=== PATIENT | female | born 1990 | race Caucasian/White ===

== ENCOUNTER 2022-05-12 13:07 | Emergency (ER) | payer OTHER, SELFPAY | END 2022-05-12 14:22 | disposition left against medical advice (07) | DX: Z53.21 Procedure and treatment not carried out due to patient leaving prior to being seen by health care provider (principal) ==

== ENCOUNTER 2022-09-04 10:13 | Emergency (ER) | payer OTHER, SELFPAY ==
[2022-09-04] VITALS (13 sets, daily range): BP systolic 173–196; BP diastolic 108–133; PULSE 88–108; RESP 24; TEMP 36.8; O2SAT 98–100; BMI 25.6
--- NOTE | 2022-09-04 10:49 | ED.GENADULT ---
HPI - General Adult General Chief complaint: Abdominal Pain Stated complaint: acid reflex - unable to eat/drink Time Seen by Provider: 09/04/22 10:41 History of Present Illness HPI narrative: This 32-year-old female comes in reporting upper epigastric abdominal pain with reflux up into her chest. She states that she had a gastric bypass 3 years ago and has had some issues with constipation and reflux. Over the past 3 or 4 days these symptoms have been much worse. She states that she has an appointment for an endoscopy in more than a month from now but feels that she cannot continue this way. She has been able to take some sips of fluid but has not taken any food over these past few days. She has taken all of her regular medicines to treat these symptoms and has not had relief. Related Data Home Medications Medication Instructions Recorded Confirmed dextroamphetamine-amphetamine 20 20 mg PO DAILY 04/14/22 09/04/22 mg tablet sertraline 100 mg tablet 100 mg PO Q24H 04/14/22 09/04/22 trazodone 100 mg tablet 100 mg PO HS 04/14/22 09/04/22 calcium carbonate 500 mg-vitamin 1 tab PO BID 09/04/22 09/04/22 D3 5 mcg (200 unit) tablet (Oyster Shell Calcium-Vitamin D3) gabapentin 100 mg capsule 100 mg PO DAILY 09/04/22 09/04/22 pantoprazole 40 mg tablet,delayed 40 mg PO BID 09/04/22 09/04/22 release sucralfate 100 mg/mL oral 10 ml PO TID 09/04/22 09/04/22 suspension (Carafate) Previous Rx's Medication Instructions Recorded hydrocodone 5 mg-acetaminophen 325 1 tab PO Q4-6H PRN pain #10 tabs 09/04/22 mg tablet ondansetron HCl 4 mg tablet 4 mg PO Q6H #10 tabs 09/04/22 Allergies Allergy/AdvReac Type Severity Reaction Status Date / Time amoxicillin Allergy Intermediate Hives Verified 09/04/22 10:26 metoclopramide [From Reglan] Allergy Mild anxiety, Verified 09/04/22 10:26 skin is crawling Penicillins Allergy Mild Hives Verified 09/04/22 10:26 prochlorperazine Allergy Mild anxiety, Verified 09/04/22 10:26 [From Compazine] skin crawling Review of Systems Status of ROS: Reports: 10 or more systems reviewed and unremarkable except as noted in History and below Narrative: Constitutional: No fevers, no weight gain or loss. Eyes: No discharge. No vision changes. HENT: No congestion, no sore throat, no ear pain. Cardiovascular: No palpitations. Respiratory: No shortness of breath, no wheezes, no cough. Gastrointestinal: No diarrhea. Upper epigastric abdominal pain radiating up into her chest typical of reflux esophagitis. Genitourinary: No dysuria, no hematuria. Musculoskeletal: Normal range of motion. Skin: No rashes, no pruritis. Neurological: No dizziness, weakness, sensory change, speech change. Endo/Heme/Allergies: No bruising or bleeding. No polydipsia. Pysch: no suicidality, no anxiety, no insomnia. All other systems reviewed and are negative. PFSH PFS Social History Smoking Status: Current every day smoker What tobacco products do you use: cigarettes Second hand tobacco smoke exposure: No How often do you have a drink containing alcohol: never How often do you have six or more drinks on one occasion: Never AUDIT-C Alcohol total score: 0 Non-prescribed substance use: denies use service: No Exam Narrative: Exam Narrative: Constitutional: Well-developed, well-nourished, no acute distress. HEENT: Normocephalic, atraumatic. Neck: Normal range of motion. Nontender. Supple. Heart: Regular. No murmurs. Normal rate. Intact distal pulses. Lungs: Clear to auscultation. No chest discomfort. No wheezes, rhonchi, or rales. Abdomen: Normal bowel sounds. Upper epigastric tenderness radiating up into her chest. No rebound tenderness. Genitalia: Deferred. Back: No midline tenderness. Normal range of motion. Extremities: Normal range of motion. No injury. Skin: Intact. No rash. Warm. No erythema or pallor. Neurologic: No altered sensation. No weakness. Alert and oriented. Psychiatric: No suicidality. No anxiety or depression. No insomnia. Nursing notes and vitals signs are reviewed. Const: Vital Signs, click to edit/add: Vital Signs - 24 hr 09/04/22 10:17 09/04/22 11:50 09/04/22 11:51 Temperature 98.3 F Pulse Rate 95 96 Pulse Rate [Right Pulse Oximeter] 108 H Respiratory Rate 24 Blood Pressure 174/120 H Blood Pressure [Ri ght Upper Arm] 173/108 H Pulse Oximetry 99 100 100 Oxygen Delivery Me thod Room Air Course Vital Signs Vital signs: Initial Vital Signs Temperature 98.3 F 09/04/22 10:17 Temperature Source Temporal Artery Scan 09/04/22 10:17 Pulse Rate 108 H 09/04/22 10:17 Respiratory Rate 24 09/04/22 10:17 Blood Pressure 173/108 H 09/04/22 10:17 Blood Pressure Mean 129 09/04/22 10:17 Blood Pressure Position Sitting 09/04/22 10:17 Pulse Oximetry 99 09/04/22 10:17 Oxygen Delivery Method Room Air 09/04/22 10:17 Vital Signs Temperature 98.3 F 09/04/22 10:17 Pulse Rate 108 H 09/04/22 10:17 Respiratory Rate 24 09/04/22 10:17 Blood Pressure 173/108 H 09/04/22 10:17 Pulse Oximetry 99 09/04/22 10:17 Oxygen Delivery Method Room Air 09/04/22 10:17 Temperature 98.3 F 09/04/22 10:17 Pulse Rate 96 09/04/22 11:51 Respiratory Rate 24 09/04/22 10:17 Blood Pressure 174/120 H 09/04/22 11:51 Pulse Oximetry 100 09/04/22 11:51 Oxygen Delivery Method Room Air 09/04/22 10:17 Medical Decision Making MDM Narrative Medical decision making narrative: This patient comes in complaining of severe upper epigastric pain radiating up into her chest. She attributes this to reflux symptoms. She has had symptoms like this less severely over the past 3 years since she had a gastric bypass. This procedure was fraught with problems for her. An IV was established where the patient received a L of normal saline, 30 mg of Toradol, and Zofran 4 mg. She also received a GI cocktail. These treatments did not bring any relief to her symptoms. She then received Ativan 0.5 mg as she was reporting lots of anxiety. She did also have 2 small hematemesis episodes. I did discuss imaging studies which the patient stated she has had somewhat recently. She does not have any abnormal bowel sounds or rebound tenderness. She was interested in getting an endoscopy done sooner. I did speak with the endoscopy center and there is an opening for this to occur tomorrow at 1:30 a.m.. I placed an order for endoscopy at that time. The patient is okay to return home as her lab results are reassuring. I did describe signs and symptoms that would indicate need for return prior to her appointment tomorrow. She will receive a phone call for further instructions regarding scope tomorrow. The patient did received prescription for some tablets of [place] and Zofran. Lab Data Labs: Lab Results 09/04/22 Range/Units 11:00 WBC 6.04 (4.50-11.00) K/uL RBC 5.00 (4.00-5.20) m/uL Hgb 11.9 L (12.0-16.0) gm/dL Hct 37.7 (33.0-51.0) % MCV 75 L (80-100) fL MCH 24 L (26-34) pg MCHC 32 (32-36) gm/dL RDW Coeff of Vega 15.5 (11.5-15.5) % Plt Count 500 H (140-440) K/uL Neut % (Auto) 48.6 (42.0-72.0) % Lymph % (Auto) 41.6 (20-44) % [place] % (Auto) 6.5 (0.0-11.0) % Eos % (Auto) 2.3 (0.0-7.0) % Baso % (Auto) 0.8 (0.0-3.0) % Neut # (Auto) 2.94 (1.7-7.0) K/uL Lymph # (Auto) 2.51 (0.90-2.90) K/uL [place] # (Auto) 0.40 (0.00-0.90) K/UL Eos # (Auto) 0.14 (0.00-0.50) K/uL Baso # (Auto) 0.05 (0.00-0.30) K/uL Sodium 139 (135-149) mmol/L Potassium 3.7 (3.6-5.1) mmol/L Chloride 104 (96-114) mmol/L Carbon Dioxide 27 (20-32) mmol/L BUN 7 (5-24) mg/dL Creatinine 0.6 (0.5-1.5) mg/dL Estimated Creat Clear 105.48 Estimated GFR 121 ml/min Glucose 100 (60-115) mg/dL Calcium 9.5 (8.4-10.6) mg/dL Total Bilirubin 0.4 (0.1-1.5) mg/dL Direct Bilirubin 0.0 (0.0-0.5) mg/dL AST 30 (12-35) U/L ALT 21 (4-35) U/L Alkaline Phosphatase 105 (40-150) U/L C-Reactive Protein < 0.5 L (0.5-1.0) mg/dL Total Protein 8.5 H (6.0-8.3) g/dL Albumin 5.0 (3.3-5.0) g/dL Lipase 102 (23-300) U/L Discharge Plan Discharge Clinical Impression: Esophagitis, reflux, Gastroenteritis Patient Disposition: Home w/ Parent or Adult Condition: Unchanged Additional Instructions: Take medication as needed and indicated. Follow up for endoscopy as scheduled. Return if worsening. Prescriptions: New hydrocodone-acetaminophen 5-325 mg tablet 1 tab PO Q4-6H PRN (Reason: pain) Qty: 10 0RF ondansetron HCl 4 mg tablet 4 mg PO Q6H Qty: 10 0RF No Action sertraline 100 mg tablet 100 mg PO Q24H dextroamphetamine-amphetamine 20 mg tablet 20 mg PO DAILY trazodone 100 mg tablet 100 mg PO HS Patient Comments: TAKE ONE TABLET BY MOUTH AT BEDTIME pantoprazole 40 mg tablet,delayed release (DR/EC) 40 mg PO BID gabapentin 100 mg capsule 100 mg PO DAILY calcium carbonate-vitamin D3 [Oyster Shell Calcium-Vit D3] 500 mg-5 mcg (200 unit) tablet 1 tab PO BID sucralfate [Carafate] 100 mg/mL suspension 10 ml PO TID Follow Up/Referrals: Provider,Not a Local [Referring] - Stand Alone Forms: [facility] Info Inst[facility]
[2022-09-04] MEDS: 0.9 % SODIUM CHLORIDE 1000 ml 1,000 ML IV (11:06)
[2022-09-04] MEDS: KETOROLAC 30 MG/ML inj IVP (11:06)
[2022-09-04] MEDS: ONDANSETRON 2 MG/ML inj 4 MG IVP (11:06)
[2022-09-04] MEDS: GI COCKTAIL (VISC LIDO/ANTACID) 30 ML PO (11:06)
[2022-09-04 11:07] LABS: Basophils Absolute Auto 0.05 K/uL (0.00-0.30); Basophils Percent Auto 0.8 % (0.0-3.0); Eosinophils Absolute Auto 0.14 K/uL (0.00-0.50); Eosinophils Percent Auto 2.3 % (0.0-7.0); Hematocrit 37.7 % (33.0-51.0); Hemoglobin* 11.9 gm/dL (12.0-16.0); Immature Granulocytes Abs Auto 0.01 K/uL (0.00-0.30); Immature Granulocytes Pct Auto 0.2 %; Lymphocytes Absolute Auto 2.51 K/uL (0.90-2.90); Lymphocytes Percent Auto 41.6 % (20-44); Mean Corpuscular HGB Conc 32 gm/dL (32-36); Mean Corpuscular Hemoglobin 24 pg (26-34); Mean Corpuscular Volume 75 fL (80-100); Monocytes Percent Auto 6.5 % (0.0-11.0); Neutrophils Absolute Auto 2.94 K/uL (1.7-7.0); Neutrophils Percent Auto 48.6 % (42.0-72.0); Platelet Count* 500 K/uL (140-440); RDW Coefficient of Variation % 15.5 % (11.5-15.5); White Blood Count* 6.04 K/uL (4.50-11.00)
[2022-09-04 11:10] LABS: Slide Review Reflex No
--- NOTE | 2022-09-04 11:20 | ED.NURSE ---
Called into pt room due to patient vomiting adilia red blood. Dr Claros notified and at bedside. RN will establish second IV access and give Ativan per AUG. VSS. [place] WNL.
[2022-09-04 11:21] LABS: Chloride* 104 mmol/L (96-114); Sodium* 139 mmol/L (135-149)
[2022-09-04 11:22] LABS: Potassium* 3.7 mmol/L (3.6-5.1)
[2022-09-04 11:24] LABS: Aspartate Amino Transferase* 30 U/L (12-35); Bilirubin Total* 0.4 mg/dL (0.1-1.5); Carbon Dioxide* 27 mmol/L (20-32); Creatinine* 0.6 mg/dL (0.5-1.5); Est. Creatinine Clearance* 105.48; Estimated Glomerular Filt Rate 121 ml/min; Total Protein* 8.5 g/dL (6.0-8.3)
[2022-09-04 11:25] LABS: Alanine Aminotransferase* 21 U/L (4-35); Alkaline Phosphatase* 105 U/L (40-150); Blood Urea Nitrogen* 7 mg/dL (5-24); Calcium* 9.5 mg/dL (8.4-10.6); Glucose* 100 mg/dL (60-115); Lipase* 102 U/L (23-300)
[2022-09-04 11:28] LABS: C Reactive Protein* < 0.5 mg/dL (0.5-1.0)
[2022-09-04] MEDS: LORazepam 2 MG/ML inj 0.5 MG IV (11:43)
--- NOTE | 2022-09-04 12:22 | ED.NURSE ---
Pt vomiting adilia blood again. Dr Claros notified. Approx 50cc total of adilia blood emesis. VSS. ABCs intact.
[2022-09-04] MEDS: FAMOTIDINE 10 MG/ML inj 20 MG IVP (12:53)
[2022-09-04] MEDS: HYDROmorphone 0.5 mg/0.5 ml inj IVP (12:53)
== END 2022-09-04 13:00 | disposition home or self-care (01) ==
PROVIDERS: Emergency Provider Emergency Medicine Emergency Medical Services; PCP Family Medicine
DX: K20.90 Esophagitis, unspecified without bleeding (principal); K21.9 Gastro-esophageal reflux disease without esophagitis; K52.9 Noninfective gastroenteritis and colitis, unspecified
CPT/HCPCS: 36415; 80048; 80076; 83690; 85025; 86140; 96374; 96375; 99284; A9270; J1170; J1885; J2060; J2405; J7030; S0028

== ENCOUNTER 2022-09-05 08:29 | Outpatient (CLI) | payer OTHER, SELFPAY ==
--- NOTE | 2022-09-05 08:32 | W.ANESCHARGE ---
Anesthesia Charges Start Date/Time Anesthesia Start Date: 09/05/22 Anesthesia Start Time: 08:51 Stop Date/Time Anesthesia Stop Date: 09/05/22 Anesthesia Stop Time: 09:10
--- NOTE | 2022-09-05 09:15 | W.ANESCHARGE ---
Anesthesia Charges Start Date/Time Anesthesia Start Date: 09/05/22 Anesthesia Start Time: 08:51 Stop Date/Time Anesthesia Stop Date: 09/05/22 Anesthesia Stop Time: 09:10
== END 2022-09-05 08:30 | disposition home or self-care (01) ==
PROVIDERS: PCP Family Medicine; Visit Provider Internal Medicine
DX: R19.8 Other specified symptoms and signs involving the digestive system and abdomen (principal)
CPT/HCPCS: 43239; 731; 813; 88305; J2704; J3490

== ENCOUNTER 2022-12-04 13:20 | Outpatient (CLI) | payer OTHER, SELFPAY | END 2022-12-04 13:21 | disposition home or self-care (01) | LOC: NFLDUCREF 13:22 | PROVIDERS: PCP Family Medicine; Visit Provider Nurse Practitioner Family | DX: R35.0 Frequency of micturition (principal); R10.9 Unspecified abdominal pain | CPT/HCPCS: 87086 ==

== ENCOUNTER 2022-12-13 02:03 | Observation (INO) | payer OTHER, SELFPAY ==
[2022-12-13] VITALS (7 sets, daily range): BP systolic 96–145; BP diastolic 59–96; PULSE 71–100; RESP 16–20; TEMP 36.2–36.9; O2SAT 95–100; BMI 26.0
[2022-12-13 02:18] LABS: Appearance Urine Clear (Clear); Bilirubin Urine Negative (Negative); Blood Urine 3+ (Negative); Color Urine Pink (Yellow); Glucose Urine Negative (Negative); Ketones Urine Negative (Negative); Leukocyte Esterase Urine Negative (Negative); Nitrite Urine Negative (Negative); Protein Urine Negative (Negative); Specific Gravity Urine <= 1.005 (1.000-1.030); Urobilinogen Urine 0.2 (0.2-1.0); pH Urine 5.5 (5.0-8.5)
--- NOTE | 2022-12-13 02:25 | CRLHL7_ITS ---
For Patients: As a result of the Century Cures Act, medical imaging exams and procedure reports are released immediately into your electronic medical record. You may view this report before your referring provider. If you have questions, please contact your health care provider. INDICATION: Right flank pain TECHNIQUE: CT Abdomen and pelvis without i.v. contrast. Coronal and sagittal reformats were obtained. COMPARISON: 09/30/2021, 02/18/2021, 01/29/2021 FINDINGS: Lower chest: Unremarkable. Liver: Unremarkable. Spleen: Unremarkable. Pancreas: Unremarkable. Gallbladder: Previous cholecystectomy noted without significant intra- or extrahepatic biliary ductal dilatation seen. Kidney: Unremarkable. No kidney or ureteral stones or obstruction seen. Adrenal: Unremarkable. Bowel: Moderate amount of stool is present throughout the colon which may be due to chronic constipation. Previous antegastric-antecolic gastric bypass noted with no definite obstruction of the biliopancreatic limb or Reuben-en-Y loop seen. The appendix is not identified. Vascular: Unremarkable. Lymph: Unremarkable. Peritoneum: Unremarkable. No pneumoperitoneum is seen. Trace amount of ascites is present and is likely physiologic in origin. Pelvis: Unremarkable. Soft tissue: Unremarkable. Bone: Mild levoscoliosis of the lumbar spine is noted. IMPRESSION: 1. No CT correlate for the patient`s symptoms seen. Dictated by Iam Bob MD @ 12/13/2022 3:01:47 AM Please note that all CT scans at this facility use dose modulation, iterative reconstruction, and/or weight-based dosing when appropriate to reduce radiation dose to as low as reasonably achievable. Dictated by: Iam Bob MD @ 12/13/2022 03:02:58 (Electronically Signed)
--- NOTE | 2022-12-13 02:31 | ED_ITS ---
HPI - Abdominal Pain General Chief Complaint: Flank Pain Stated Complaint: back pain and chest pain Time Seen by Provider: 12/13/22 02:22 History of Present Illness HPI narrative: Patient is a 32-year-old woman who presents with right-sided flank pain. The pain is been present for the last 6-12 hours. She has had a history of kidney stones in the past. She is producing pain [place] urine. She has had no fevers no chills no night sweats she does have some anterior chest pain which is seems to be related to the flank pain. She has had no nausea no vomiting no diarrhea no rashes she is describing no significant dysuria or other urinary symptoms. She states that she cannot be as she has had a previous tubal ligation. Related Data Home Medications Medication Instructions Recorded Confirmed dextroamphetamine-amphetamine 20 20 mg PO DAILY 04/14/22 12/13/22 mg tablet sertraline 100 mg tablet 100 mg PO Q24H 04/14/22 12/13/22 trazodone 100 mg tablet 100 mg PO HS 04/14/22 12/13/22 calcium carbonate 500 mg-vitamin 1 tab PO BID 09/04/22 12/13/22 D3 5 mcg (200 unit) tablet (Oyster Shell Calcium-Vitamin D3) pantoprazole 40 mg tablet,delayed 40 mg PO BID 09/04/22 12/13/22 release sucralfate 100 mg/mL oral 10 ml PO TID 09/04/22 12/13/22 suspension (Carafate) Previous Rx's Medication Instructions Recorded ondansetron HCl 4 mg tablet 4 mg PO Q6H #10 tabs 09/04/22 valacyclovir 1 gram tablet 2,000 mg (2 x 1 gram) PO BID 1 day 12/04/22 #4 tabs Allergies Allergy/AdvReac Type Severity Reaction Status Date / Time amoxicillin Allergy Intermediate Hives Verified 12/13/22 02:18 metoclopramide [From Reglan] Allergy Mild anxiety, Verified 12/13/22 02:18 skin is crawling Penicillins Allergy Mild Hives Verified 12/13/22 02:18 prochlorperazine Allergy Mild anxiety, Verified 12/13/22 02:18 [From Compazine] skin crawling NSAIDS (Non-Steroidal Allergy Verified 12/13/22 02:18 Anti-Inflamma Review of Systems Status of ROS Reports: 10 or more systems reviewed and unremarkable except as noted in History and below [facility] Medical History (Updated 12/13/22 @ 03:58 by Malik Cisneros MD) Cholecystectomy planned Kidney stones ?N20.0 - Calculus of kidney (ICD-10) Urinary frequency ?R35.0 - Frequency of micturition (ICD-10) Nerve pain ?M79.2 - Neuralgia and neuritis, unspecified (ICD-10) Cold sore ?B00.1 - Herpesviral vesicular dermatitis (ICD-10) Surgical History (Updated 12/13/22 @ 03:52 by Malik Cisneros MD) Gastric bypass status for obesity ?Z98.84 - Bariatric surgery status (ICD-10) Social History Smoking Status: Current every day smoker What tobacco products do you use: cigarettes Second hand tobacco smoke exposure: No How often do you have a drink containing alcohol: never How often do you have six or more drinks on one occasion: Never AUDIT-C Alcohol total score: 0 Non-prescribed substance use: denies use service: No Exam Narrative: Exam Narrative: EXAM GENERAL: Patient appears comfortable and well. EYES: No scleral icterus. LYMPH: No supraclavicular or cervical lymphadenopathy. SKIN: Visible skin seen during exam normal or with benign process only. EXT: No dependent lower extremity pedal edema. HEART: Regular rate and rhythm with no murmurs, rubs, or gallops. LUNGS: Clear to auscultation bilaterally with no crackles or wheezes. ABD: Soft, non tender, non distended. PSYCH: Good eye contact, speech is not pressured. Const: Vital Signs, click to edit/add: Vital Signs - 24 hr 12/13/22 02:19 Temperature 97.1 F L Pulse Rate [Pulse Oximeter] 100 Respiratory Rate 20 Blood Pressure [Ri ght Upper Arm] 99/68 Pulse Oximetry 97 Oxygen Delivery Me thod Room Air Course Course Hospital Course: Patient seen and examined. CT of the abdomen pelvis without IV contrast UA CBC CMP amylase D-dimer EKG troponin pending. 0.5 mg IV Dilaudid 4 mg of IV Zofran 1 L normal saline given. Reevaluation(s) Reevaluation #1: Patient still uncomfortable given 2nd dose of IV Dilaudid. Vital Signs Vital signs: Initial Vital Signs Temperature 97.1 F L 12/13/22 02:19 Temperature Source Temporal Artery Scan 12/13/22 02:19 Pulse Rate 100 12/13/22 02:19 Pulse Strength 3+ Normal 12/13/22 02:19 Respiratory Rate 20 12/13/22 02:19 Blood Pressure 99/68 12/13/22 02:19 Blood Pressure Mean 78 12/13/22 02:19 Blood Pressure Position Supine 12/13/22 02:19 Pulse Oximetry 97 12/13/22 02:19 Oxygen Delivery Method Room Air 12/13/22 02:19 Vital Signs Temperature 97.1 F L 12/13/22 02:19 Pulse Rate 100 12/13/22 02:19 Respiratory Rate 20 12/13/22 02:19 Blood Pressure 99/68 12/13/22 02:19 Pulse Oximetry 97 12/13/22 02:19 Oxygen Delivery Method Room Air 12/13/22 02:19 Temperature 97.1 F L 12/13/22 02:19 Pulse Rate 100 12/13/22 02:19 Respiratory Rate 20 12/13/22 02:19 Blood Pressure 99/68 12/13/22 02:19 Pulse Oximetry 97 12/13/22 02:19 Oxygen Delivery Method Room Air 12/13/22 02:19 MDM - Abdominal Pain MDM Narrative Medical decision making narrative: Patient is a a 32-year-old woman who comes in with fairly acute right upper quadrant pain. Patient states she does have history of fatty liver however her liver function tests are typically in the 20s and 30s. Tonight her AST is 457 ALT 121 bilirubin is normal. Her UA shows hematuria with normal leukocyte esterase and nitrites. She is mildly anemic with a hemoglobin 11.9 in her blood sugars 48. Her CT abdomen pelvis is without abnormality. Patient is status post gastric bypass quite sometime ago. She has stable medications and is not taking Tylenol or drinking alcohol. She has had no blood exposures. She states she takes a significant number of vitamins. At this time I did request a ultrasound of the abdomen. I will be admitting her for further evaluation with a diagnosis of acute hepatitis etiology unclear. Also to be followed up upon his the blood sugar of 48 I did give her orange juice and would recommend continued assessment in the hospital. Also would follow up on her hematuria as current specimen has squamous cells as well. Differential Diagnosis Differential diagnosis: Likely abdominal pain, acute appendicitis, calculus of kidney, constipation, diverticulitis, gastroenteritis, pancreatitis and small bowel obstruction Lab Data Labs: Lab Results 12/13/22 12/13/22 12/13/22 Range/Units 02:12 02:40 02:43 WBC 6.27 (4.50-11.00) K/uL RBC 4.78 (4.00-5.20) m/uL Hgb 11.9 L (12.0-16.0) gm/dL Hct 37.8 (33.0-51.0) % MCV 79 L (80-100) fL MCH 25 L (26-34) pg MCHC 32 (32-36) gm/dL RDW Coeff of Vega 20.0 H (11.5-15.5) % Plt Count 429 (140-440) K/uL Neut % (Auto) 47.6 (42.0-72.0) % Lymph % (Auto) 41.9 (20-44) % [place] % (Auto) 5.9 (0.0-11.0) % Eos % (Auto) 3.0 (0.0-7.0) % Baso % (Auto) 0.5 (0.0-3.0) % Neut # (Auto) 2.98 (1.7-7.0) K/uL Lymph # (Auto) 2.63 (0.90-2.90) K/uL [place] # (Auto) 0.40 (0.00-0.90) K/UL Eos # (Auto) 0.19 (0.00-0.50) K/uL Baso # (Auto) 0.03 (0.00-0.30) K/uL Abs Immat Gran (auto) 0.07 (0.00-0.30) K/uL Imm/Tot Granulo (auto) 1.1 % D-Dimer Quant (PE/DVT) 0.31 (0.00-0.50) ug/ml Sodium 143 (135-149) mmol/L Potassium 3.4 L (3.6-5.1) mmol/L Chloride 106 (96-114) mmol/L Carbon Dioxide 26 (20-32) mmol/L BUN 9 (5-24) mg/dL Creatinine 0.6 (0.5-1.5) mg/dL Estimated GFR 121 ml/min Glucose 48 L* (60-115) mg/dL Calcium 9.8 (8.4-10.6) mg/dL Total Bilirubin 0.3 (0.1-1.5) mg/dL AST 457 H (12-35) U/L ALT 121 H (4-35) U/L Alkaline Phosphatase 109 (40-150) U/L Troponin I < 0.01 L (0.01-0.04) ng/mL Total Protein 8.0 (6.0-8.3) g/dL Albumin 4.7 (3.3-5.0) g/dL Amylase 57 (18-89) U/L Urine Color [place] A (Yellow) Urine Appearance Clear (Clear) Urine pH 5.5 (5.0-8.5) Ur Specific [place] <= 1.005 (1.000-1.030) Urine Protein Negative (Negative) Urine Glucose (UA) Negative (Negative) Urine Ketones Negative (Negative) Urine Blood 3+ A (Negative) Urine Nitrite Negative (Negative) Urine Bilirubin Negative (Negative) Urine Urobilinogen 0.2 (0.2-1.0) Ur Leukocyte Esterase Negative (Negative) Urine RBC 2-5 A (0-2) Urine WBC 0-2 (0-5) Ur Squamous Epith Cells Few (None-Few) Urine Bacteria Few A (None) Discharge Plan Discharge Clinical Impression: Abdominal pain Patient Disposition: Admitted As Inpatient Condition: Stable Activity Level: Other Discharge Diet: Other
[2022-12-13 02:34] LABS: Bacteria Urine Few; Squamous Epithelial Cell Urine Few (None-Few); WBC Urine 0-2 (0-5)
[2022-12-13] MEDS: 0.9 % SODIUM CHLORIDE 1000 ml 1,000 ML IV (02:43)
[2022-12-13] MEDS: HYDROmorphone 0.5 mg/0.5 ml inj IVP ×2 (02:44→03:33)
[2022-12-13] MEDS: ONDANSETRON 2 MG/ML inj 4 MG IVP ×4 (02:44→20:34)
[2022-12-13 03:12] LABS: Basophils Absolute Auto 0.03 K/uL (0.00-0.30); Basophils Percent Auto 0.5 % (0.0-3.0); Eosinophils Absolute Auto 0.19 K/uL (0.00-0.50); Hematocrit 37.8 % (33.0-51.0); Hemoglobin* 11.9 gm/dL (12.0-16.0); Immature Granulocytes Abs Auto 0.07 K/uL (0.00-0.30); Immature Granulocytes Pct Auto 1.1 %; Lymphocytes Absolute Auto 2.63 K/uL (0.90-2.90); Lymphocytes Percent Auto 41.9 % (20-44); Mean Corpuscular HGB Conc 32 gm/dL (32-36); Mean Corpuscular Hemoglobin 25 pg (26-34); Mean Corpuscular Volume 79 fL (80-100); Monocytes Percent Auto 5.9 % (0.0-11.0); Neutrophils Absolute Auto 2.98 K/uL (1.7-7.0); Neutrophils Percent Auto 47.6 % (42.0-72.0); Platelet Count* 429 K/uL (140-440); Red Blood Count 4.78 m/uL (4.00-5.20); White Blood Count* 6.27 K/uL (4.50-11.00)
[2022-12-13 03:15] LABS: Slide Review Reflex No
[2022-12-13 03:17] LABS: D Dimer Quantitative* 0.31 ug/ml (0.00-0.50)
[2022-12-13 03:22] LABS: Albumin* 4.7 g/dL (3.3-5.0); Chloride* 106 mmol/L (96-114)
[2022-12-13 03:23] LABS: Potassium* 3.4 mmol/L (3.6-5.1); Sodium* 143 mmol/L (135-149)
[2022-12-13 03:25] LABS: Amylase* 57 U/L (18-89); Bilirubin Total* 0.3 mg/dL (0.1-1.5); Carbon Dioxide* 26 mmol/L (20-32); Creatinine* 0.6 mg/dL (0.5-1.5); Estimated Glomerular Filt Rate 121 ml/min
[2022-12-13 03:26] LABS: Alanine Aminotransferase* 121 U/L (4-35); Alkaline Phosphatase* 109 U/L (40-150); Aspartate Amino Transferase* 457 U/L (12-35); Blood Urea Nitrogen* 9 mg/dL (5-24); Calcium* 9.8 mg/dL (8.4-10.6)
[2022-12-13 03:38] LABS: Glucose* 48 mg/dL (60-115)
[2022-12-13 03:38] LABS: Troponin I* < 0.01 ng/mL (0.01-0.04)
--- NOTE | 2022-12-13 03:48 | CRLHL7_ITS ---
For Patients: As a result of the Century Cures Act, medical imaging exams and procedure reports are released immediately into your electronic medical record. You may view this report before your referring provider. If you have questions, please contact your health care provider. Indication: Acute hepatitis Technique: Sonography of the abdomen was performed the structures discussed below Comparison: A CT from earlier the same day Findings: The common duct measures 5 millimeters which is normal. The pancreas was poorly seen due to overlying bowel gas. The liver is mildly heterogeneous in echotexture but there is no focal mass and there is no biliary ductal dilation. No perihepatic ascites. The right kidney is unremarkable in size and appearance measuring 9.3 x 4.4 x 5.6 centimeters. The gallbladder is surgically absent Impression: 1. Mildly heterogeneous hepatic echotexture but no focal mass, biliary ductal dilation or perihepatic ascites. The common duct measures 5 millimeters which is normal. Absent gallbladder. 2. The right kidney is unremarkable. The pancreas is obscured by bowel gas. Dictated by Donnie Kimble MD @ 12/13/2022 5:35:18 AM (Electronically Signed)
[2022-12-13] MEDS: LORazepam 2 MG/ML inj 1 MG IVP (04:41)
[2022-12-13 04:50] LABS: Ethanol* 0.07 % (0.01-0.03)
[2022-12-13 04:51] LABS: Acetaminophen* < 10.0 ug/mL (10.0-30.0); Salicylate* < 1.0 mg/dL (1.0-10)
--- NOTE | 2022-12-13 05:24 | P.IMCN_ITS ---
Date of Consult Consult date: 12/13/22 Primary Care Provider: Jakub Cai MD Consult Narrative Narrative: [facility] ADMISSION SUPPORT NOTE eHospitalist was contacted by Dr. Cisneros with request of admission support. Chief complaint: Abdominal pain HPI: The patient reports that 3 days ago she developed right upper quadrant pain that she states is sharp, stabbing, crampy in nature. She reports that it moved from her back to her substernal area and was associated with nausea. She reports having multiple complications since her gastric bypass surgery in August 2020. She had a stricture forming from her esophagus to her stomach pouch and a stent was placed. This was then removed and replaced. It was removed again and a PEG tube was placed for which she developed a complication and therefore another PEG tube was placed which developed problems as well and so she continues to have difficulty with her caloric intake although she reports that her weight is fluctuating between losses and gains. She also over the past 3 months has had skin eruptions that were determined to be related to herpes simplex infection and so she had been placed on various courses of acyclovir and steroids. She was hypoglycemic in the ED. Review of systems other than mentioned above is negative Home Medications: Reviewed see EMR for details Pertinent Medical History: ADHD, anxiety, insomnia, GERD, DVT related to PICC line placement, herpes simplex skin infection, gastric bypass surgery in 2020, multiple dilation of esophageal stricture, stent placement in esophagus, PEG tube placement Pertinent Social History: She quit smoking in June, drinks socially, denies drugs of abuse [facility] Medical History (Updated 12/13/22 @ 03:58 by aMlik Cisneros MD) Cholecystectomy planned Kidney stones ?N20.0 - Calculus of kidney (ICD-10) Urinary frequency ?R35.0 - Frequency of micturition (ICD-10) Nerve pain ?M79.2 - Neuralgia and neuritis, unspecified (ICD-10) Cold sore ?B00.1 - Herpesviral vesicular dermatitis (ICD-10) Surgical History (Updated 12/13/22 @ 03:52 by Malik Cisneros MD) Gastric bypass status for obesity ?Z98.84 - Bariatric surgery status (ICD-10) Social History What is your current living situation?: I presently have a place to live Problems where you live: no known problems Problems where you live details: none In the past 12 months, utilities in danger of being shut off: no In the past 12 mos, have been you worried that your food would run out before you had money to buy more?: never true In the past 12 mos, the food you bought just didn't last and you didn't have money to buy more?: never true Highest level of school completed/degree received: Master's degree Smoking Status: Former smoker What tobacco products do you use: cigarettes Smoking quit date/years: <= 15 years ago Do you use any of these nicotine containing products: None Second hand tobacco smoke exposure: No How often do you have a drink containing alcohol: monthly or less How many standard drinks containing alcohol do you have on a typical day: 1 or 2 How often do you have six or more drinks on one occasion: Never AUDIT-C Alcohol total score: 1 Non-prescribed substance use: denies use Caffeine: Yes (coffee) How often does anyone, including family, friends and others, physically hurt you : never How often does anyone, including family, friends and others, insult or talk down to you: never How often does anyone, including family, friends and others, threaten you with harm: never How often does anyone, including family, friends and others, scream or curse at you: never service: No Meds Home Medications and Allergies Home Medications Medication Instructions Recorded Confirmed Type dextroamphetamine-amphetamine 20 20 mg PO DAILY 04/14/22 12/13/22 History mg tablet sertraline 100 mg tablet 100 mg PO Q24H 04/14/22 12/13/22 History trazodone 100 mg tablet 100 mg PO HS 04/14/22 12/13/22 History calcium carbonate 500 mg-vitamin 1 tab PO BID 09/04/22 12/13/22 History D3 5 mcg (200 unit) tablet (Oyster Shell Calcium-Vitamin D3) pantoprazole 40 mg tablet,delayed 40 mg PO BID 09/04/22 12/13/22 History release sucralfate 100 mg/mL oral 10 ml PO TID 09/04/22 12/13/22 History suspension (Carafate) Allergies Allergy/AdvReac Type Severity Reaction Status Date / Time amoxicillin Allergy Intermediate Hives Verified 12/13/22 02:18 metoclopramide [From Reglan] Allergy Mild anxiety, Verified 12/13/22 02:18 skin is crawling Penicillins Allergy Mild Hives Verified 12/13/22 02:18 prochlorperazine Allergy Mild anxiety, Verified 12/13/22 02:18 [From Compazine] skin crawling NSAIDS (Non-Steroidal Allergy Verified 12/13/22 02:18 Anti-Inflamma Exam Narrative: Exam Narrative: Exam (performed via interactive video with assistance of bedside nurse): General: Alert, cooperative, no acute distress HEENT: Oral mucosa pink and moist without erythema Lungs: Clear to auscultation bilaterally without crackle or wheeze CV: Regular rate and rhythm without loud murmur rub or gallop Abd: Does exhibit signs of pain with palpation in the right upper quadrant done by bedside nurse Ext: No pitting edema noted Skin: She has a diffuse rash on her face back chest abdomen with multiple crusted lesions Neuro: Alert, oriented x 3. CN III -VII, XI, XII grossly intact, moves all extremities without any significant focal deficit appreciated by nurse Const: Vital Signs, click to edit/add: Vital Signs - 24 hr 12/13/22 02:19 Temperature 97.1 F L Pulse Rate [Pulse Oximeter] 100 Respiratory Rate 20 Blood Pressure [Ri ght Upper Arm] 99/68 Pulse Oximetry 97 Oxygen Delivery Me thod Room Air Labs Labs: Short CBC 12/13/22 Range/Units 02:40 WBC 6.27 (4.50-11.00) K/uL Hgb 11.9 L (12.0-16.0) gm/dL Hct 37.8 (33.0-51.0) % Plt Count 429 (140-440) K/uL BMP 12/13/22 02:43 Sodium 143 Potassium 3.4 L Chloride 106 Carbon Dioxide 26 BUN 9 Creatinine 0.6 Glucose 48 L* Calcium 9.8 Cardiac Enzymes 12/13/22 Range/Units 02:40 Troponin I < 0.01 L (0.01-0.04) ng/mL Liver Function 12/13/22 Range/Units 02:43 Total Bilirubin 0.3 (0.1-1.5) mg/dL AST 457 H (12-35) U/L ALT 121 H (4-35) U/L Alkaline Phosphatase 109 (40-150) U/L Albumin 4.7 (3.3-5.0) g/dL Urine 12/13/22 Range/Units 02:12 Urine Color [place] A (Yellow) Urine Appearance Clear (Clear) Urine pH 5.5 (5.0-8.5) Ur Specific [place] <= 1.005 (1.000-1.030) Urine Protein Negative (Negative) Urine Glucose (UA) Negative (Negative) Assessment and Plan Assessment and plan (1) Abdominal pain: Status: Acute Plan Recent lab/CT scan of abdomen and pelvis: Reviewed see EMR for details Assessment and Plan: 1. Abdominal pain-likely related to liver abnormality. Pain control with narcotics 2. [id number] right upper quadrant ultrasound and acute hepatitis panel. Etiology unclear. 3. ADHD-continue dextroamphetamine 4. GERD-continue Protonix and sucralfate 5. Anxiety-continue sertraline 6. Hypoglycemia-likely secondary to poor oral intake. Continue to monitor 7. Insomnia-trazodone 8. DVT prophylaxis-Lovenox 9. CODE STATUS full code per documentation Chart review was performed as well as evaluation of the patient via video. Thank you for involving ehospitalist. Please contact [phone] if further assistance is needed.
[2022-12-13 05:35] LABS: Hepatitis B Surface Antigen* Negative (Negative)
[2022-12-13 05:53] LABS: Hepatitis C Virus Antibody* Negative (Negative)
[2022-12-13] MEDS: 0.9 % SODIUM CHLORIDE 1000 ml 1,000 ML 100 ML IV (06:11)
[2022-12-13] MEDS: SODIUM CHLORIDE 0.9 % (FLUSH) 10 ML SYRINGE 5 ML IVF ×4 (06:11→20:34)
[2022-12-13] MEDS: OXYCODONE 5 MG TABLET PO ×5 (06:13→20:32)
--- NOTE | 2022-12-13 06:43 | PC.NURSE ---
End of Shift: Pt arrived to Med/Surg via ED at 0517 with chief complaint of flank and epigastric pain. Pt AOx3, ambulates independently well, reports pain at 8/10. Multiple scattered healing lesions noted on face, back, neck, and abdomen.
[2022-12-13 08:42] LABS: INR 0.88 (0.91-1.10); Prothrombin Time 12.4 Seconds
[2022-12-13 08:43] LABS: Creatine Kinase* 102 U/L (41-117); Gamma Glutamyl Transpeptidase* 68 U/L (8-55); Lactate Dehydrogenase* 481 U/L (120-246); Magnesium* 2.2 mg/dL (1.5-2.6)
[2022-12-13 08:59] LABS: Hemoglobin A1C* 5.04 % (0-5.6)
[2022-12-13 09:08] LABS: Free T4 Free Thyroxine* 1.37 ng/dL (0.70-1.85)
[2022-12-13] MEDS: OMEPRAZOLE 20 MG CAPSULE DR 40 MG PO ×2 (09:32→20:32)
[2022-12-13] MEDS: SUCRALFATE 1 GM TABLET PO ×3 (09:35→20:33)
[2022-12-13] MEDS: 5 % DEXTROSE IN LAC RINGER'S 1,000 ML 125 ML IV ×2 (11:53→19:33)
--- NOTE | 2022-12-13 14:54 | PC.NURSE ---
Pt evaluated by Dr. Wilson twice this morning. She is tearful and emotional about not having answers as to why I feel so bad. Reassurance and information provided throughout the shift. Please see eMar for medications provided for pain and GI reflux. Pt did finally agree to try Zofran this afternoon. White noise machine provided to promote rest. Davis and daughters Keisha & Chapis in to visit with Anabelle. BG 81 at 1230 pm. She remains NPO with maintenance IVF @125cc/hr. Ice chips sparingly. Pt unhooked her IV and walked around med/surg floor. Pt went off the med/surg unit w/o permission from staff. New IVF and IV tubing initiated and pt was reminded by primary RN that she is not to leave Med/Surg. KC form completed and copy provided to patient per protocol. Performing her ADLS w/o difficulty. Q-easy aromatherapy patch applied this morning.
--- NOTE | 2022-12-13 16:36 | PM.IMHP1 ---
Hospitalist- H&P: ASHTYN History of Present Illness Date Seen: 12/13/22 Chief complaint: back pain and chest pain Narrative: Anabelle Ruffin is a 32 year old female a complicated abdominal medical history, including cholecystectomy and gastric bypass, who presented through the emergency department with right upper quadrant abdominal pain. This pain began 2 or 3 days ago. She has had nausea with it. She has not had any fevers or chills, vomiting or hematemesis, diarrhea, blood in the stool or melena. She has no sick contacts, does not spend time outdoors, has no tick exposure, has only been sexually active once or twice in the last 6 months with her , denies being able to be since she has had a tubal ligation, and denies any muscle aches or pains and has had no unusual exercise lately. She does take acetaminophen every day for abdominal pain, typically 3000 mg in divided doses a day, but up to 4500 mg twice a week. She states she drinks about 1 drink of wine a week and last had a drink yesterday before admission. She has a history of chronic abdominal pain, but says this is much different. She says last time she had any narcotic medications was at least 3 or 4 months ago. She is asking frequently for more than just the oxycodone that she has been on overnight and wants Ativan for nausea because she says nothing else works. She has refused to try ondansetron for nausea. She told me that her mother has had a liver transplant for a genetic disorder and told her to get tested, but does not know what the genetic disorder was and never got tested for it. She had a robotic assisted gastric bypass surgery for obesity by Dr. Garsia in early 2020. This was complicated by a PICC line associated thrombophlebitis of her left arm for which she was on Xarelto for some time. She developed some difficulty swallowing and malnutrition for which she had a G-tube placed sometime in the last year. She has had a lot of trouble with this G-tube having had to get it changed on several occasions and in November she was at [facility] where the G-tube fell out. According to those notes, she left AMA during that visit without telling anybody that she was leaving. In almost every note that I have found she has mentioned to be tearful. She has had a history of fatty liver disease noted on CT scan in 2019. She has had a history of elevated transaminases that have resolved and were normal just 3 weeks ago. Review of Systems Status of ROS: Reports: 10 or more systems reviewed and unremarkable except as noted in History and below [facility] Medical History (Updated 12/13/22 @ 17:04 by Thu Wilson MD) Herpes zoster ?B02.9 - Zoster without complications (ICD-10) Spell of altered consciousness ?R40.4 - Transient alteration of awareness (ICD-10) Malnutrition ?E46 - Unspecified protein-calorie malnutrition (ICD-10) History of gastrostomy tube placement Controlled substance agreement signed ?Z79.899 - Other intermediate manager (current) drug therapy (ICD-10) Hematoma of rectus sheath ?S30.1XXA - Contusion of abdominal wall, initial encounter (ICD-10) PTSD (post-traumatic stress disorder) ?F43.10 - Post-traumatic stress disorder, unspecified (ICD-10) ADHD ?F90.9 - Attention-deficit hyperactivity disorder, unspecified type (ICD-10) Major depressive disorder ?F32.9 - Major depressive disorder, single episode, unspecified (ICD-10) Deep vein thrombophlebitis of arm ?I80.8 - Phlebitis and thrombophlebitis of other sites (ICD-10) Transaminitis ?R74.01 - Elevation of levels of liver transaminase levels (ICD-10) Asthma ?J45.909 - Unspecified asthma, uncomplicated (ICD-10) Lung nodule ?R91.1 - Solitary pulmonary nodule (ICD-10) Fatty liver ?K76.0 - Fatty (change of) liver, not elsewhere classified (ICD-10) Hyperlipidemia ?E78.5 - Hyperlipidemia, unspecified (ICD-10) 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 (ICD-10) Migraine ?G43.909 - Migraine, unspecified, not intractable, without status migrainosus (ICD-10) Severe preeclampsia ?O14.10 - Severe pre-eclampsia, unspecified trimester (ICD-10) Pneumonia ?J18.9 - Pneumonia, unspecified organism (ICD-10) Cholecystectomy planned Kidney stones ?N20.0 - Calculus of kidney (ICD-10) Urinary frequency ?R35.0 - Frequency of micturition (ICD-10) Nerve pain ?M79.2 - Neuralgia and neuritis, unspecified (ICD-10) Cold sore ?B00.1 - Herpesviral vesicular dermatitis (ICD-10) Surgical History (Updated 12/13/22 @ 16:39 by Thu Wilson MD) Hx of cholecystectomy ?Z90.49 - Acquired absence of other specified parts of digestive tract (ICD-10) Gastric bypass status for obesity ?Z98.84 - Bariatric surgery status (ICD-10) Family History (Updated 12/13/22 @ 07:39 by Thu Wilson MD) Maternal Grandmother Breast cancer High blood pressure Mother Breast cancer Skin cancer Paternal Grandmother Lung cancer Aunt Breast cancer Daughter Congenital heart disease Maternal Grandfather Myocardial infarction High cholesterol High blood pressure Stroke Father High cholesterol High blood pressure Paternal Grandfather High cholesterol High blood pressure Social History (Updated 12/13/22 @ 16:40 by Thu Wilson MD) Narrative: . Two young daughters. Denies tobacco use or illicit drug use. 1 glass of wine per week, most recent drink was the night before admission. What is your current living situation?: I presently have a place to live Problems where you live: no known problems Problems where you live details: none In the past 12 months, utilities in danger of being shut off: no In the past 12 mos, have been you worried that your food would run out before you had money to buy more?: never true In the past 12 mos, the food you bought just didn't last and you didn't have money to buy more?: never true Highest level of school completed/degree received: Master's degree Smoking Status: Former smoker What tobacco products do you use: cigarettes Smoking quit date/years: <= 15 years ago Do you use any of these nicotine containing products: None Second hand tobacco smoke exposure: No How often do you have a drink containing alcohol: monthly or less How many standard drinks containing alcohol do you have on a typical day: 1 or 2 How often do you have six or more drinks on one occasion: Never AUDIT-C Alcohol total score: 1 Non-prescribed substance use: denies use Caffeine: Yes (coffee) How often does anyone, including family, friends and others, physically hurt you: never How often does anyone, including family, friends and others, insult or talk down to you: never How often does anyone, including family, friends and others, threaten you with harm: never How often does anyone, including family, friends and others, scream or curse at you: never service: No Meds Home Medications and Allergies Home Medications Medication Instructions Recorded Confirmed Type dextroamphetamine-amphetamine 20 20 mg PO DAILY 04/14/22 12/13/22 History mg tablet trazodone 100 mg tablet 100 mg PO HS 04/14/22 12/13/22 History calcium carbonate 500 mg-vitamin 1 tab PO BID 09/04/22 12/13/22 History D3 5 mcg (200 unit) tablet (Oyster Shell Calcium-Vitamin D3) pantoprazole 40 mg tablet,delayed 40 mg PO BID 09/04/22 12/13/22 History release sucralfate 100 mg/mL oral 10 ml PO TID 09/04/22 12/13/22 History suspension (Carafate) albuterol sulfate 90 mcg/actuation 2 puff inhalation Q6H PRN wheezing 12/13/22 12/13/22 History aerosol inhaler (Ventolin HFA) bupropion HCl 150 mg 24 hr tablet, 150 mg PO QAM 12/13/22 12/13/22 History extended release cyanocobalamin (vitamin B-12) 1,000 mcg PO DAILY 12/13/22 12/13/22 History 1,000 mcg tablet duloxetine 30 mg capsule,delayed mg PO 12/13/22 History release ferrous sulfate 325 mg (65 mg 325 mg PO BID 12/13/22 12/13/22 History iron) tablet (Jagjit-Time) gabapentin 300 mg capsule 300 mg PO BID 12/13/22 12/13/22 History lorazepam 1 mg tablet 1 mg PO Q6H PRN 12/13/22 12/13/22 History magnesium oxide 400 mg (241.3 mg 400 mg PO DAILY 12/13/22 12/13/22 History magnesium) tablet (MgO) methocarbamol 500 mg tablet 500 mg PO TID PRN 12/13/22 12/13/22 History multivitamin 1 tab PO DAILY 12/13/22 12/13/22 History ondansetron 4 mg disintegrating 4 mg PO Q8H PRN 12/13/22 12/13/22 History tablet phentermine 37.5 mg tablet 56.25 mg PO DAILY 12/13/22 12/13/22 History sennosides 8.6 mg-docusate sodium 1 tab-cap PO BID 12/13/22 12/13/22 History 50 mg tablet (Senna Plus) Home Medication Comments: Medication reconciliation is difficult as patient is not clear in exactly what she is taking and according to the pharmaceutical records, she is getting prescriptions from many different providers filled through different pharmacies. Allergies Allergy/AdvReac Type Severity Reaction Status Date / Time amoxicillin Allergy Intermediate Hives Verified 12/13/22 02:18 metoclopramide [From Reglan] Allergy Mild anxiety, Verified 12/13/22 02:18 skin is crawling Penicillins Allergy Mild Hives Verified 12/13/22 02:18 prochlorperazine Allergy Mild anxiety, Verified 12/13/22 02:18 [From Compazine] skin crawling NSAIDS (Non-Steroidal Allergy Verified 12/13/22 02:18 Anti-Inflamma Exam Narrative: Exam Narrative: General: Tearful with a quiet voice, but during our conversation she calmed down and spoke more clearly. She had a heat pack with a blanket wrapped like a turban over her head when I walked in. I asked her if she had a headache and she responded that she did not but this helped her feel comfortable. Awake alert oriented x3. HEENT: Normocephalic atraumatic, pupils equally round and reactive to light and accommodation. Oropharynx clear. Mucous membranes are moist. No cervical lymphadenopathy, thyromegaly or carotid bruits. No JVD. Cardiovascular: Regular rate and rhythm. No murmurs, gallops, or rubs. Chest: No increased work of breathing. Clear to auscultation bilaterally. No crackles or wheezes. Abdomen: Bowel sounds present. Multiple well-healed laparoscopic surgical scars with a healing G-tube site in the left upper quadrant. Soft, nondistended mildly tender in the right upper quadrant with no rebound tenderness or guarding. No hepatosplenomegaly or masses. Extremities: No edema, no cyanosis or clubbing. Skin: No jaundice, no pallor, no rashes. Const: Vital Signs, click to edit/add: Vital Signs - 24 hr 12/13/22 02:19 12/13/22 05:25 12/13/22 05:53 Temperature 97.1 F L 97.9 F Pulse Rate [Left A pical] Pulse Rate [Pulse Oximeter] 100 100 Pulse Rate [Right Pulse Oximeter] 96 Respiratory Rate 20 18 Blood Pressure [Ri ght Arm] 135/92 H Blood Pressure [Ri ght Upper Arm] 99/68 100/70 Pulse Oximetry 97 95 Oxygen Delivery Me thod Room Air Room Air 12/13/22 07:45 Temperature 97.5 F L Pulse Rate [Left A pical] 78 Pulse Rate [Pulse Oximeter] Pulse Rate [Right Pulse Oximeter] 78 Respiratory Rate 16 Blood Pressure [Ri ght Arm] 131/69 Blood Pressure [Ri ght Upper Arm] Pulse Oximetry 100 Oxygen Delivery Me thod Room Air Documenting provider has reviewed patient's vital signs: yes Hospitalist - H&P: Result Labs Labs: Short CBC 12/13/22 Range/Units 02:40 WBC 6.27 (4.50-11.00) K/uL Hgb 11.9 L (12.0-16.0) gm/dL Hct 37.8 (33.0-51.0) % Plt Count 429 (140-440) K/uL BMP 12/13/22 02:43 Sodium 143 Potassium 3.4 L Chloride 106 Carbon Dioxide 26 BUN 9 Creatinine 0.6 Glucose 48 L* Calcium 9.8 Cardiac Enzymes 12/13/22 12/13/22 Range/Units 02:40 02:43 Total Creatine Kinase 102 (41-117) U/L Troponin I < 0.01 L (0.01-0.04) ng/mL Liver Function 12/13/22 Range/Units 02:43 Total Bilirubin 0.3 (0.1-1.5) mg/dL GGT 68 H (8-55) U/L AST 457 H (12-35) U/L ALT 121 H (4-35) U/L Alkaline Phosphatase 109 (40-150) U/L Albumin 4.7 (3.3-5.0) g/dL Urine 12/13/22 Range/Units 02:12 Urine Color Ramirez-Perez A (Yellow) Urine Appearance Clear (Clear) Urine pH 5.5 (5.0-8.5) Ur Specific [place] <= 1.005 (1.000-1.030) Urine Protein Negative (Negative) Urine Glucose (UA) Negative (Negative) Ordering Physician: Malik Cisneros M.D. of Service: 12/13/22 Procedure(s): CT abdomen pelvis wo con Accession Number(s): [id number] cc: Malik Cisneros M.D.; Jakub Cai M.D.~ For Patients: As a result of the Cures Act, medical imaging exams and procedure reports are released immediately into your electronic medical record. You may view this report before your referring provider. If you have questions, please contact your health care provider. INDICATION: Right flank pain TECHNIQUE: CT Abdomen and pelvis without i.v. contrast. Coronal and sagittal reformats were obtained. COMPARISON: 09/30/2021, 02/18/2021, 01/29/2021 FINDINGS: Lower chest: Unremarkable. Liver: Unremarkable. Spleen: Unremarkable. Pancreas: Unremarkable. Gallbladder: Previous cholecystectomy noted without significant intra- or extrahepatic biliary ductal dilatation seen. Kidney: Unremarkable. No kidney or ureteral stones or obstruction seen. Adrenal: Unremarkable. Bowel: Moderate amount of stool is present throughout the colon which may be due to chronic constipation. Previous antegastric-antecolic gastric bypass noted with no definite obstruction of the biliopancreatic limb or Reuben-en-Y loop seen. The appendix is not identified. Vascular: Unremarkable. Lymph: Unremarkable. Peritoneum: Unremarkable. No pneumoperitoneum is seen. Trace amount of ascites is present and is likely physiologic in origin. Pelvis: Unremarkable. Soft tissue: Unremarkable. Bone: Mild levoscoliosis of the lumbar spine is noted. IMPRESSION: 1. No CT correlate for the patient`s symptoms seen. Dictated by Iam Bob MD @ 12/13/2022 3:01:47 AM Please note that all CT scans at this facility use dose modulation, iterative reconstruction, and/or weight-based dosing when appropriate to reduce radiation dose to as low as reasonably achievable. Dictated by: Iam Bob MD @ 12/13/2022 03:02:58 (Electronically Signed) Ordering Physician: Malik Cisneros M.D. Date of Service: 12/13/22 Procedure(s): US abdomen limited Accession Number(s): [id number] cc: Malik Cisneros M.D.; Jakub Cai M.D.~ For Patients: As a result of the 21st Century Cures Act, medical imaging exams and procedure reports are released immediately into your electronic medical record. You may view this report before your referring provider. If you have questions, please contact your health care provider. Indication: Acute hepatitis Technique: Sonography of the abdomen was performed the structures discussed below Comparison: A CT from earlier the same day Findings: The common duct measures 5 millimeters which is normal. The pancreas was poorly seen due to overlying bowel gas. The liver is mildly heterogeneous in echotexture but there is no focal mass and there is no biliary ductal dilation. No perihepatic ascites. The right kidney is unremarkable in size and appearance measuring 9.3 x 4.4 x 5.6 centimeters. The gallbladder is surgically absent Impression: 1. Mildly heterogeneous hepatic echotexture but no focal mass, biliary ductal dilation or perihepatic ascites. The common duct measures 5 millimeters which is normal. Absent gallbladder. 2. The right kidney is unremarkable. The pancreas is obscured by bowel gas. Dictated by Donnie Kimble MD @ 12/13/2022 5:35:18 AM (Electronically Signed) Assessment and Plan Assessment and plan (1) RUQ pain: Status: Acute Assessment and Plan: Acute on chronic. Associated with new elevated transaminases. Suspect pain is due to acute hepatitis. (2) Acute hepatitis: Status: Acute Assessment and Plan: Alk-phos and total bilirubin are within normal limits. AST is 4 times greater than ALT and GGT is slightly elevated. This is an alcoholic liver pattern and I suspect she has acute alcoholic hepatitis. She has a complicated abdominal medical history and I spoke with Dr. José Luis Waite from [facility] today. He recommended keeping her overnight and rechecking LFTs. If she is having increased abdominal pain by tomorrow morning or if her LFTs continue to rise, we should consider transfer to to facility with GI and he would be willing to see her in consultation at [place]. He recommended calling back to the hospitalist service tomorrow if she would like to transfer. Additionally he recommended trying to avoid narcotics and benzodiazepines since we do not have an underlying diagnosis and there is great potential for addiction, especially given her history of receiving prescriptions from different providers and pharmacies. (3) Fatty liver: Problem comment: noted on CT scan 02/2020. Suspect the possibility of alcoholic fatty liver disease. I counseled patient on stopping all alcohol use today. Status: Acute (4) Alcohol use: Status: Acute (5) Microcytic anemia: Status: Acute Assessment and Plan: Check iron studies, B12 and folate. (6) Hypoglycemia: Status: Acute Assessment and Plan: Patient has a history of malnutrition and difficulty eating for which she recently had a G-tube that fell out and it appears she left AMA and was lost to follow-up. At this point I will start her on D5 LR and monitor with q.6 hour Accu-Cheks while she is NPO. Will recheck LFTs in the morning.
--- NOTE | 2022-12-13 17:54 | PC.NURSE ---
Please see eMar for meds provided on [id number] shift for discomfort. IVF continue @ 125cc/hr. Information on hepatitis reviewed with patient who continues to deny that she is a heavy drinker. I do take Tylenol ES 2 tablets three times a day, I've been doing it for years. Plan repeat liver enzymes in am. NPO except for ice chips. Accuchecks Q6 hours. Urine output has improved. Report will be given to oncoming shift RN.
--- NOTE | 2022-12-13 18:22 | PC.NURSE ---
BG 81 at 1230 today and BG 92 @ 9178. Pt requesting jello or flavored ice this evening. RN will notify Dr. Rand of this request.
[2022-12-13 18:59] LABS: Iron* 50 ug/dL (37-170)
[2022-12-13 19:08] LABS: Percent Iron Saturation 11 % (20-50); Total Iron Binding Capacity 473 ug/dL (265-497)
--- NOTE | 2022-12-13 19:22 | PC.NURSE ---
Pt advanced to CL diet per Dr. Rand. Report to Kirill FLORES for law reporter.
[2022-12-13 19:51] LABS: Vitamin B12* 902 pg/mL (243-894)
[2022-12-13] MEDS: TRAZODONE HCL 50 MG TABLET 100 MG PO (20:32)
[2022-12-13] MEDS: SENNOSIDES 1 TAB TABLET 2 TAB PO (20:32)
[2022-12-13] MEDS: ENOXAPARIN 40 MG/0.4 ML INJ SUBCUT (20:33)
[2022-12-13] MEDS: DULOXETINE 30 MG CAPSULE DR 90 MG PO (22:52)
--- NOTE | 2022-12-13 23:43 | PC.NURSE ---
2332 was called to this pts room as staff had educated her to call her to machine operator hop picker 6 year old child who is in room with her. Chg RN had made multiple attempts to call her on her behalf to machine operator hop picker child. 2340 went to pts room to let her know that we are unable to have her child stay her for reasons of safety for her and her child. Noted child sleeping in bed with her. Lights out.
--- NOTE | 2022-12-14 00:21 | PC.NURSE ---
AROUND 2244 IT WAS BROUGHT TO WRITERS ATTENTION THAT PATIENT HAD HER DTR (MINOR AGE) IN THE ROOM WITH HER, UNACCOMPANIED BY AN ADULT. WENT IN AND SPOKE TO THE PATIENT REGARDING THE VISITOR POLICY, PT STATED I WAS TOLD THERE ARE NO VISITING HOURS AND THAT SOMEONE COULD VISIT ME AT ANY TIME, SHE JUST MISSES HER MOM. PHARMACIST IN CHARGE OWNER EDUCATED PATIENT THAT SHE IS CORRECT THERE IS NO SET VISITING HOURS BUT A MINOR NEEDS TO BE ACCOMPANIED BY AN ADULT AND THAT PERSON CANNOT BE THE PATIENT DUE TO SAFETY REASON, PATIENT VERBALIZED UNDERSTANDING AND BEGAN ATTEMPTED TO CALL AT HOME. PHARMACIST IN CHARGE OWNER ALSO ATTEMPTED TO CALL PATIENTS X2 AROUND 2329 WITH NO ANSWER PATIENT VERBALIZED SHE WAS UNABLE TO GET A HOLD OF HIM.
[2022-12-14] MEDS: OXYCODONE 5 MG TABLET PO ×3 (02:44→12:34)
[2022-12-14 03:00] VITALS: BP 101/66; PULSE 74; PULSE 78; RESP 16; TEMP 36.9; O2SAT 99
[2022-12-14] MEDS: 5 % DEXTROSE IN LAC RINGER'S 1,000 ML 125 ML IV (04:22)
--- NOTE | 2022-12-14 06:19 | PC.NURSE ---
Shift note: Patient's visited with their 2 kids at 1930. left one of the kids who was 10 years according the father with the mother when leaving. Charge nurse noticed and informed pt that due to the child's age she can not be allowed to be with mother overnight. Pt asked to inform to come for the little kid. Pt said she called the several times but he is not able to answer call. Charge-nurse called and informed him about the hospital policy. Pt decided that if the child is leaving then she is leaving as well but later changed her mind when she was offered to sign AMA form. finally came back for the child but very angry about the decision of staff members. Pt's pain level has been rated between 5 and 8 and PRN given as requested.Vitally stable and blood sugar checked were 187 and 125 at 0000 and 0600 respectively. Pt had adequate sleep.
[2022-12-14 06:41] LABS: Basophils Absolute Auto 0.02 K/uL (0.00-0.30); Basophils Percent Auto 0.4 % (0.0-3.0); Eosinophils Absolute Auto 0.23 K/uL (0.00-0.50); Hematocrit 32.8 % (33.0-51.0); Hemoglobin* 10.1 gm/dL (12.0-16.0); Immature Granulocytes Abs Auto 0.03 K/uL (0.00-0.30); Immature Granulocytes Pct Auto 0.7 %; Lymphocytes Percent Auto 56.7 % (20-44); Mean Corpuscular HGB Conc 31 gm/dL (32-36); Mean Corpuscular Hemoglobin 25 pg (26-34); Mean Corpuscular Volume 80 fL (80-100); Monocytes Percent Auto 6.6 % (0.0-11.0); Neutrophils Percent Auto 30.6 % (42.0-72.0); Platelet Count* 345 K/uL (140-440); RDW Coefficient of Variation % 20.1 % (11.5-15.5); Red Blood Count 4.11 m/uL (4.00-5.20); White Blood Count* 4.57 K/uL (4.50-11.00)
[2022-12-14 07:06] LABS: Slide Review Reflex No
[2022-12-14 07:07] LABS: Albumin* 3.2 g/dL (3.3-5.0); Chloride* 106 mmol/L (96-114)
[2022-12-14 07:08] LABS: Potassium* 3.5 mmol/L (3.6-5.1); Sodium* 139 mmol/L (135-149)
[2022-12-14 07:10] LABS: Alanine Aminotransferase* 95 U/L (4-35); Alkaline Phosphatase* 89 U/L (40-150); Aspartate Amino Transferase* 73 U/L (12-35); Bilirubin Total* 0.2 mg/dL (0.1-1.5); Blood Urea Nitrogen* 11 mg/dL (5-24); Carbon Dioxide* 28 mmol/L (20-32); Creatinine* 0.6 mg/dL (0.5-1.5); Est. Creatinine Clearance* 105.48; Estimated Glomerular Filt Rate 121 ml/min; Glucose* 120 mg/dL (60-115); Total Protein* 5.6 g/dL (6.0-8.3)
[2022-12-14 07:11] LABS: Calcium* 8.5 mg/dL (8.4-10.6); Magnesium* 1.8 mg/dL (1.5-2.6)
[2022-12-14 08:09] VITALS: BP 119/64; PULSE 75; RESP 16; TEMP 37; O2SAT 96
[2022-12-14] MEDS: SUCRALFATE 1 GM TABLET PO (08:49)
[2022-12-14] MEDS: SENNOSIDES 1 TAB TABLET 2 TAB PO (08:49)
[2022-12-14] MEDS: POTASSIUM BICARB 25 MEQ EFFERVESCENT TAB PO ×2 (08:49→11:19)
[2022-12-14] MEDS: OMEPRAZOLE 20 MG CAPSULE DR 40 MG PO (08:50)
--- NOTE | 2022-12-14 09:41 | PM.DS1 ---
DS: Providers Provider Time Seen by Provider: 08:00 Date Seen: 12/14/22 Date of admission: 12/13/22 05:23 Primary care physician: Jakub Cai MD Admitting Clinician: Aristeo Rand MD Attending Physician on discharge: Thu Wilson MD Date of Discharge: 12/14/22 DS: Diagnosis Discharge Diagnosis (1) Hypoglycemia: Status: Resolved Problem details: 12/13/22 HgbA1C 5.04% (2) Microcytic anemia: Status: Acute Problem details: Iron level and TIBC wnl. %saturation low. C/w anemia of chronic disease. (3) Alcohol use: Status: Acute Problem details: - endorses 1 drink/week - SHAN level 0.07 on admission - recommended avoiding all alcohol for a while (4) Fatty liver: Status: Acute Problem details: noted on CT scan 02/2020. Suspect the possibility of alcoholic fatty liver disease. I counseled patient on stopping all alcohol use 12/13/22. (5) Acute hepatitis: Status: Acute Problem details: AST >> ALT, which may indicate alcoholic hepatitis however patient states she only drinks 1 glass of wine a week at the most. LFTs have improved and her pain is improving. I have asked her to abstain from all alcohol and follow-up with [facility] for further investigation. She male so need testing for alpha-1 antitrypsin deficiency since her mother and liver failure your due to that. (6) RUQ pain: Status: Acute Problem details: Acute on chronic (7) Rash: Status: Chronic Problem details: upper back and bilateral face, healing blisters, seeing dermatology and PCP for this (8) Major depressive disorder: Status: Chronic Problem details: Single episode, 06/11/2021 (9) PTSD (post-traumatic stress disorder): Status: Chronic DS: Summary Hospital Course Hospital Course: 32-year-old female with complicated abdominal medical history including cholecystectomy, gastric bypass, and G-tube which has since fallen out who presented with acute on chronic right upper quadrant pain. She endorses drinking only 1 glass of wine per week but did have a drink the night before admission. She also endorses using acetaminophen 3000 mg to 4500 mg daily for abdominal pain. Liver function tests were elevated with AST 4 times greater than ALT on admission. She was admitted for observation on bowel rest with IV fluids, oral pain medication, and CT abdomen and pelvis and right upper quadrant ultrasound did not show cause of pain. I spoke with Dr. Waite from [facility] who recommended observation and rechecking labs. Labs this morning showed improvement in LFTs and patient also endorsed improvement in pain. I have reviewed the [facility] [employer] and note that she has had multiple prescriptions from multiple providers for opioids over the last 12 months, most recently in October there were several, less than 10 tabs each prescription. Due to her acute on chronic pain I have prescribed her 5 tabs of oxycodone 5 mg per tab to go home with and had a conversation with her that this is only for the acute portion of her pain that I expect to continue to improve as acute hepatitis and liver function tests improve and that she should develop a nonnarcotic pain plan with her primary care provider or possibly ask for referral to a pain clinic for the underlying chronic abdominal pain. Patient demonstrated understanding of this plan of care. She is discharged home in improved in stable condition. Time Spent with Patient Time attestation: Total time spent providing and/or coordinating discharge services: Exam Narrative: Exam Narrative: General: Tearful with a quiet voice. Awake alert oriented x3. Cardiovascular: Regular rate and rhythm. No murmurs, gallops, or rubs. Chest: No increased work of breathing. Clear to auscultation bilaterally. No crackles or wheezes. Abdomen: Bowel sounds present. Soft, nondistended mildly tender in the right upper quadrant, better than yesterday, with no rebound tenderness or guarding. Point tender along the liver edge. Extremities: No edema, no cyanosis or clubbing. Skin: No jaundice, no pallor, no rashes. Const: Vital Signs, click to edit/add: Vital Signs - 24 hr 12/13/22 16:30 12/13/22 19:00 12/13/22 23:00 Temperature 98.2 F 98.2 F 98.4 F Pulse Rate [Left A pical] 78 71 89 Pulse Rate [Right Pulse Oximeter] 78 Respiratory Rate 16 16 16 Blood Pressure [Ri ght Arm] 136/83 145/96 H 96/59 L Pulse Oximetry 98 100 96 Oxygen Delivery Me thod Room Air Room Air Room Air 12/14/22 03:00 Temperature 98.4 F Pulse Rate [Left A pical] 74 Pulse Rate [Right Pulse Oximeter] 78 Respiratory Rate 16 Blood Pressure [Ri ght Arm] 101/66 Pulse Oximetry 99 Oxygen Delivery Me thod Room Air Documenting provider has reviewed patient's vital signs: yes DS: Data Data Completed and Pending Completed studies during hospitalization: 12/13/2022 EKG: Normal sinus rhythm, 86 beats per minute, nonspecific T-wave abnormality. Ordering Physician: Malik Cisneros M.D. Date of Service: 12/13/22 Procedure(s): CT abdomen pelvis wo con Accession Number(s): [id number] cc: Malik Cisneros M.D.; Jakub Cai M.D.~ For Patients: As a result of the Century Cures Act, medical imaging exams and procedure reports are released immediately into your electronic medical record. You may view this report before your referring provider. If you have questions, please contact your health care provider. INDICATION: Right flank pain TECHNIQUE: CT Abdomen and pelvis without i.v. contrast. Coronal and sagittal reformats were obtained. COMPARISON: 09/30/2021, 02/18/2021, 01/29/2021 FINDINGS: Lower chest: Unremarkable. Liver: Unremarkable. Spleen: Unremarkable. Pancreas: Unremarkable. Gallbladder: Previous cholecystectomy noted without significant intra- or extrahepatic biliary ductal dilatation seen. Kidney: Unremarkable. No kidney or ureteral stones or obstruction seen. Adrenal: Unremarkable. Bowel: Moderate amount of stool is present throughout the colon which may be due to chronic constipation. Previous antegastric-antecolic gastric bypass noted with no definite obstruction of the biliopancreatic limb or Reuben-en-Y loop seen. The appendix is not identified. Vascular: Unremarkable. Lymph: Unremarkable. Peritoneum: Unremarkable. No pneumoperitoneum is seen. Trace amount of ascites is present and is likely physiologic in origin. Pelvis: Unremarkable. Soft tissue: Unremarkable. Bone: Mild levoscoliosis of the lumbar spine is noted. IMPRESSION: 1. No CT correlate for the patient`s symptoms seen. Dictated by Iam Bob MD @ 12/13/2022 3:01:47 AM Please note that all CT scans at this facility use dose modulation, iterative reconstruction, and/or weight-based dosing when appropriate to reduce radiation dose to as low as reasonably achievable. Dictated by: Iam Bob MD @ 12/13/2022 03:02:58 (Electronically Signed) Ordering Physician: Malik Cisneros M.D. Date of Service: 12/13/22 Procedure(s): US abdomen limited Accession Number(s): [id number] cc: Malik Cisneros M.D.; Jakub Cai M.D.~ For Patients: As a result of the Cures Act, medical imaging exams and procedure reports are released immediately into your electronic medical record. You may view this report before your referring provider. If you have questions, please contact your health care provider. Indication: Acute hepatitis Technique: Sonography of the abdomen was performed the structures discussed below Comparison: A CT from earlier the same day Findings: The common duct measures 5 millimeters which is normal. The pancreas was poorly seen due to overlying bowel gas. The liver is mildly heterogeneous in echotexture but there is no focal mass and there is no biliary ductal dilation. No perihepatic ascites. The right kidney is unremarkable in size and appearance measuring 9.3 x 4.4 x 5.6 centimeters. The gallbladder is surgically absent Impression: 1. Mildly heterogeneous hepatic echotexture but no focal mass, biliary ductal dilation or perihepatic ascites. The common duct measures 5 millimeters which is normal. Absent gallbladder. 2. The right kidney is unremarkable. The pancreas is obscured by bowel gas. Dictated by Donnie Kimble MD @ 12/13/2022 5:35:18 AM (Electronically Signed) Labs on day of discharge: Labs from last 24 hours 12/14/22 12/13/22 12/13/22 06:23 06:23 02:43 WBC 4.57 RBC 4.11 Hgb 10.1 L Hct 32.8 L MCV 80 MCH 25 L MCHC 31 L RDW Coeff of Vega 20.1 H Plt Count 345 Neut % (Auto) 30.6 L Lymph % (Auto) 56.7 H [place] % (Auto) 6.6 Eos % (Auto) 5.0 Baso % (Auto) 0.4 Neut # (Auto) 1.40 L Lymph # (Auto) 2.60 [place] # (Auto) 0.30 Eos # (Auto) 0.23 Baso # (Auto) 0.02 Abs Immat Gran (auto) 0.03 Imm/Tot Granulo (auto) 0.7 Sodium 139 Potassium 3.5 L Chloride 106 Carbon Dioxide 28 BUN 11 Creatinine 0.6 Estimated Creat Clear 105.48 Estimated GFR 121 Glucose 120 H Calcium 8.5 Magnesium 1.8 Iron 50 TIBC 473 % Saturation 11 L Total Bilirubin 0.2 AST 73 H ALT 95 H Alkaline Phosphatase 89 Total Protein 5.6 L Albumin 3.2 L Vitamin B12 902 H RBC Fol Sonia for Serum Pending TSH 2.710 Discharge Plan Discharge Disposition: Home, Self-Care Date of Admission: 12/13/22 05:23 Attending Provider on Discharge: Thu Wilson Primary Care Provider: Jakub Cai I Condition: Stable Anticipated Discharge Date/Time: 12/14/22 11:08 Discharge Medications: New oxycodone 5 mg Tablet 5 mg PO BID MDD 10 mg PRN (Reason: Pain) Qty: 5 0RF Continued dextroamphetamine-amphetamine 20 mg tablet 20 mg PO DAILY Patient Comments: 20MG QAM AND 10MG QNOON trazodone 100 mg tablet 100 mg PO HS Patient Comments: TAKE ONE TABLET BY MOUTH AT BEDTIME pantoprazole 40 mg tablet,delayed release (DR/EC) 40 mg PO BID calcium carbonate-vitamin D3 [Oyster Shell Calcium-Vit D3] 500 mg-5 mcg (200 unit) tablet 1 tab PO BID sucralfate [Carafate] 100 mg/mL suspension 10 ml PO TID albuterol sulfate [Ventolin HFA] 90 mcg/actuation HFA aerosol inhaler 2 puff INHALATION Q6H PRN (Reason: wheezing) cyanocobalamin (vitamin B-12) 1,000 mcg tablet 1,000 mcg PO DAILY duloxetine 30 mg capsule,delayed release(DR/EC) 90 mg PO HS Patient Comments: 1 CAP BID X 30DAYS, THEN 2 CAPS BID PATIENTS SAYS TAKING 90MG DAILY magnesium oxide [MgO] 400 mg (241.3 mg magnesium) tablet 400 mg PO DAILY multivitamin Tablet 1 tab PO DAILY ondansetron 4 mg tablet,disintegrating 4 mg PO Q8H PRN ferrous sulfate 300 mg (60 mg iron)/5 mL liquid 300 mg PO BID Discharge Orders: Discharge Order (Routine); Ordered 12/14/22 Ordered By: Thu Wilson Patient Education: Oxycodone, Rapid Release (By mouth), Alcoholic Hepatitis (DC) Additional Instructions: Avoid alcohol. Limit acetaminophen use to 3000 mg/24 hours. See [facility] in 3-4 weeks for h/o acute hepatitis and family h/o alpha-1 antitrypsin deficiency: Phone number [phone] Activity Level: No Restrictions and Other Discharge Diet: Low Fat/Low Cholesterol and Other Follow Up Appointments: Jakub Cai MD [Primary Care Provider] - 12/23/22 3:10 pm ([facility]) Forms: [employer] Info Instructions
[2022-12-14] MEDS: ONDANSETRON 2 MG/ML inj 4 MG IVP (09:48)
[2022-12-14 11:31] VITALS: RESP 16; TEMP 37
[2022-12-14 14:18] LABS: Hepatitis A Antibodies, Total Negative (Negative); Hepatitis B Core Antibody, IgM Negative (Negative)
[2022-12-16 10:34] LABS: Folate, Serum 12.2 ng/mL (>=5.9)
== END 2022-12-14 12:53 | disposition home or self-care (01) ==
LOC: ED 03:58 → MEDSURG 05:24
PROVIDERS: Family Medicine; Admitting Provider Family Medicine; Emergency Provider Internal Medicine; PCP Family Medicine; Visit Provider Family Medicine
DX: R10.9 Unspecified abdominal pain (principal); R10.11 Right upper quadrant pain; B17.9 Acute viral hepatitis, unspecified; K76.0 Fatty (change of) liver, not elsewhere classified; Z78.9 Other specified health status; D50.9 Iron deficiency anemia, unspecified; E16.2 Hypoglycemia, unspecified; R21 Rash and other nonspecific skin eruption; F32.9 Major depressive disorder, single episode, unspecified; F43.10 Post-traumatic stress disorder, unspecified
CPT/HCPCS: 36415; 74176; 76705; 80053; 80143; 80179; 81001; 82077; 82150; 82550; 82607; 82746; 82962; 82977; 83036; 83540; 83550; 83615; 83735; 84439; 84443; 84484; 85025; 85379; 85610; 86705; 86708; 86803; 87086; 87340; 93005; 96361; 96365; 96366; 96372; 96375; 96376; 99283; 99284; 99285; A9270; G0378; J1170; J1650; J2060; J2405; J7030

== ENCOUNTER 2023-01-07 18:24 | Outpatient (CLI) | payer OTHER, SELFPAY | END 2023-01-07 18:25 | disposition home or self-care (01) | LOC: AMB 01-13 09:58 | PROVIDERS: PCP Family Medicine; Visit Provider Family Medicine | DX: T50.901A Poisoning by unspecified drugs, medicaments and biological substances, accidental (unintentional), initial encounter (principal) | CPT/HCPCS: A0425; A0429 ==

== ENCOUNTER 2023-01-07 18:48 | Emergency (ER) | payer OTHER, SELFPAY ==
[2023-01-07] VITALS (53 sets, daily range): BP systolic 99–145; BP diastolic 57–108; PULSE 72–107; RESP 11–23; TEMP 36.6; O2SAT 92–100; BMI 24.7
--- NOTE | 2023-01-07 18:55 | ED_ITS ---
HPI - General Adult General Chief complaint: Overdose Stated complaint: Overdose Time Seen by Provider: 01/07/23 18:52 History of Present Illness HPI narrative: This 32-year-old female comes in by ambulance because of an overdose of Ativan. About 45 minutes prior to arrival she states that she took 15 tablets of Ativan 1 mg each. She states she did this because she wanted to get over her anxiety symptoms. She denies intent to take this to end her life. She denies taking any other street drugs or alcohol. She also denies taking any other medications with this. She arrives feeling lethargic but is responsive. She does report some chest pain and states that this is not new for her. Related Data Home Medications Medication Instructions Recorded Confirmed dextroamphetamine-amphetamine 20 20 mg PO DAILY 04/14/22 01/07/23 mg tablet trazodone 100 mg tablet 100 mg PO HS 04/14/22 01/07/23 albuterol sulfate 90 mcg/actuation 2 puff inhalation Q6H PRN wheezing 12/13/22 01/07/23 aerosol inhaler (Ventolin HFA) cyanocobalamin (vitamin B-12) 1,000 mcg PO DAILY 12/13/22 01/07/23 1,000 mcg tablet duloxetine 30 mg capsule,delayed 90 mg PO HS 12/13/22 01/07/23 release Allergies Allergy/AdvReac Type Severity Reaction Status Date / Time amoxicillin Allergy Intermediate Hives Verified 01/07/23 19:03 metoclopramide [From Reglan] Allergy Mild anxiety, Verified 01/07/23 19:03 skin is crawling Penicillins Allergy Mild Hives Verified 01/07/23 19:03 prochlorperazine Allergy Mild anxiety, Verified 01/07/23 19:03 [From Compazine] skin crawling NSAIDS (Non-Steroidal Allergy Verified 01/07/23 19:03 Anti-Inflamma Review of Systems Status of ROS: Reports: 10 or more systems reviewed and unremarkable except as noted in History and below Narrative: Constitutional: No fevers, no weight gain or loss. Eyes: No discharge. No vision changes. HENT: No congestion, no sore throat, no ear pain. Cardiovascular: No palpitations. Respiratory: No shortness of breath, no wheezes, no cough. Gastrointestinal: No abdominal pain, no vomiting, no diarrhea. Genitourinary: No dysuria, no hematuria. Musculoskeletal: Normal range of motion. Skin: No rashes, no pruritis. Neurological: No dizziness, weakness, sensory change, speech change. Endo/Heme/Allergies: No bruising or bleeding. No polydipsia. Pysch: Anxiety and depression symptoms. All other systems reviewed and are negative. [facility] Medical History (Updated 01/07/23 @ 20:23 by Josemanuel Claros MD) Abdominal pain ?R10.9 - Unspecified abdominal pain (ICD-10) Herpes zoster ?B02.9 - Zoster without complications (ICD-10) Spell of altered consciousness ?R40.4 - Transient alteration of awareness (ICD-10) Malnutrition ?E46 - Unspecified protein-calorie malnutrition (ICD-10) History of gastrostomy tube placement Controlled substance agreement signed ?Z79.899 - Other snf (current) drug therapy (ICD-10) Hematoma of rectus sheath ?S30.1XXA - Contusion of abdominal wall, initial encounter (ICD-10) PTSD (post-traumatic stress disorder) ?F43.10 - Post-traumatic stress disorder, unspecified (ICD-10) ADHD ?F90.9 - Attention-deficit hyperactivity disorder, unspecified type (ICD-10) Major depressive disorder ?F32.9 - Major depressive disorder, single episode, unspecified (ICD-10) Deep vein thrombophlebitis of arm ?I80.8 - Phlebitis and thrombophlebitis of other sites (ICD-10) Transaminitis ?R74.01 - Elevation of levels of liver transaminase levels (ICD-10) Asthma ?J45.909 - Unspecified asthma, uncomplicated (ICD-10) Lung nodule ?R91.1 - Solitary pulmonary nodule (ICD-10) Fatty liver ?K76.0 - Fatty (change of) liver, not elsewhere classified (ICD-10) Hyperlipidemia ?E78.5 - Hyperlipidemia, unspecified (ICD-10) 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 (ICD-10) Migraine ?G43.909 - Migraine, unspecified, not intractable, without status migrainosus (ICD-10) Severe preeclampsia ?O14.10 - Severe pre-eclampsia, unspecified trimester (ICD-10) Pneumonia ?J18.9 - Pneumonia, unspecified organism (ICD-10) Cholecystectomy planned Kidney stones ?N20.0 - Calculus of kidney (ICD-10) Urinary frequency ?R35.0 - Frequency of micturition (ICD-10) Nerve pain ?M79.2 - Neuralgia and neuritis, unspecified (ICD-10) Cold sore ?B00.1 - Herpesviral vesicular dermatitis (ICD-10) Surgical History (Updated 12/13/22 @ 16:39 by Thu Wilson MD) Hx of cholecystectomy ?Z90.49 - Acquired absence of other specified parts of digestive tract (ICD- 10) Gastric bypass status for obesity ?Z98.84 - Bariatric surgery status (ICD-10) Family History (Updated 12/13/22 @ 07:39 by Thu Wilson MD) Maternal Grandmother Breast cancer High blood pressure Mother Breast cancer Skin cancer Paternal Grandmother Lung cancer Aunt Breast cancer Daughter Congenital heart disease Maternal Grandfather Myocardial infarction High cholesterol High blood pressure Stroke Father High cholesterol High blood pressure Paternal Grandfather High cholesterol High blood pressure Social History (Updated 12/13/22 @ 16:40 by Thu Wilson MD) Narrative: . Two young daughters. Denies tobacco use or illicit drug use. 1 glass of wine per week, most recent drink was the night before admission. What is your current living situation?: I presently have a place to live Problems where you live: no known problems Problems where you live details: none In the past 12 months, utilities in danger of being shut off: no In the past 12 mos, have been you worried that your food would run out before you had money to buy more?: never true In the past 12 mos, the food you bought just didn't last and you didn't have money to buy more?: never true Highest level of school completed/degree received: Master's degree Smoking Status: Former smoker What tobacco products do you use: cigarettes Smoking quit date/years: <= 15 years ago Do you use any of these nicotine containing products: None Second hand tobacco smoke exposure: No How often do you have a drink containing alcohol: monthly or less How many standard drinks containing alcohol do you have on a typical day: 1 or 2 How often do you have six or more drinks on one occasion: Never AUDIT-C Alcohol total score: 1 Non-prescribed substance use: denies use Caffeine: Yes (coffee) How often does anyone, including family, friends and others, physically hurt you : never How often does anyone, including family, friends and others, insult or talk down to you: never How often does anyone, including family, friends and others, threaten you with harm: never How often does anyone, including family, friends and others, scream or curse at you: never service: No Exam Narrative: Exam Narrative: Constitutional: Well-developed, well-nourished, no acute distress. HEENT: Normocephalic, atraumatic. Neck: Normal range of motion. Nontender. Supple. Heart: Regular. No murmurs. Normal rate. Intact distal pulses. Lungs: Clear to auscultation. No chest discomfort. No wheezes, rhonchi, or r ales. Abdomen: Normal bowel sounds. Nontender. No rebound tenderness. Genitalia: Deferred. Back: No midline tenderness. Normal range of motion. Extremities: Normal range of motion. No injury. Skin: Intact. No rash. Warm. No erythema or pallor. Neurologic: No altered sensation. No weakness. Alert and oriented. Slow responses. Psychiatric: No suicidality. No anxiety or depression. No insomnia. Nursing notes and vitals signs are reviewed. Const: Vital Signs, click to edit/add: Vital Signs - 24 hr 01/07/23 18:53 01/07/23 18:53 01/07/23 18:54 Temperature 98 F Pulse Rate 104 H 94 Pulse Rate [Pulse Oximeter] 81 Respiratory Rate 20 11 L Blood Pressure 145/108 H Blood Pressure [Ri ght Upper Arm] 145/108 H Pulse Oximetry 100 100 99 Oxygen Delivery Me thod Room Air Oxygen Flow Rate 01/07/23 19:01 01/07/23 19:01 01/07/23 19:11 Temperature Pulse Rate 85 92 89 Pulse Rate [Pulse Oximeter] Respiratory Rate 14 13 21 Blood Pressure 126/87 112/77 Blood Pressure [Ri ght Upper Arm] Pulse Oximetry 98 99 98 Oxygen Delivery Me thod Oxygen Flow Rate 01/07/23 19:11 01/07/23 19:21 01/07/23 19:21 Temperature Pulse Rate 91 85 89 Pulse Rate [Pulse Oximeter] Respiratory Rate 22 21 21 Blood Pressure 101/65 Blood Pressure [Ri ght Upper Arm] Pulse Oximetry 99 98 99 Oxygen Delivery Me thod Oxygen Flow Rate 01/07/23 19:30 01/07/23 19:31 01/07/23 19:31 Temperature Pulse Rate 86 85 Pulse Rate [Pulse Oximeter] Respiratory Rate 21 21 Blood Pressure 99/63 Blood Pressure [Ri t Upper Arm] Pulse Oximetry 100 100 100 Oxygen Delivery Me thod Nasal Cannula Oxygen Flow Rate 2 01/07/23 19:41 01/07/23 19:41 01/07/23 19:50 Temperature Pulse Rate 103 H 107 H 90 Pulse Rate [Pulse Oximeter] Respiratory Rate 16 14 17 Blood Pressure 122/98 H Blood Pressure [Ri t Upper Arm] Pulse Oximetry 92 99 100 Oxygen Delivery Me thod Oxygen Flow Rate 01/07/23 19:51 Temperature Pulse Rate 89 Pulse Rate [Pulse Oximeter] Respiratory Rate 16 Blood Pressure 123/74 Blood Pressure [Ri t Upper Arm] Pulse Oximetry 100 Oxygen Delivery Me thod Oxygen Flow Rate Course Vital Signs Vital signs: Initial Vital Signs Temperature 98 F 01/07/23 18:53 Temperature Source Temporal Artery Scan 01/07/23 18:53 Pulse Rate 104 H 01/07/23 18:53 Pulse Rhythm Regular 01/07/23 18:53 Pulse Strength 3+ Normal 01/07/23 18:53 Respiratory Rate 20 01/07/23 18:53 Blood Pressure 145/108 H 01/07/23 18:53 Blood Pressure Mean 120 H 01/07/23 18:53 Blood Pressure Position Supine 01/07/23 18:53 Pulse Oximetry 100 01/07/23 18:53 Oxygen Delivery Method Room Air 01/07/23 18:53 Vital Signs Temperature 98 F 01/07/23 18:53 Pulse Rate 104 H 01/07/23 18:53 Respiratory Rate 20 01/07/23 18:53 Blood Pressure 145/108 H 01/07/23 18:53 Pulse Oximetry 100 01/07/23 18:53 Oxygen Delivery Method Room Air 01/07/23 18:53 Temperature 98 F 01/07/23 18:53 Pulse Rate 89 01/07/23 19:51 Respiratory Rate 16 01/07/23 19:51 Blood Pressure 123/74 01/07/23 19:51 Pulse Oximetry 100 01/07/23 19:51 Oxygen Delivery Method Nasal Cannula 01/07/23 19:30 Oxygen Flow Rate 2 01/07/23 19:30 Medical Decision Making MDM Narrative Medical decision making narrative: This patient comes in by ambulance because of an overdose of Ativan. Poison control was contacted in they state that the peak effect will be about 90 minutes after ingestion. This time has elapsed and the patient is maintaining sufficient vital signs. She is understandably sleepy but arousable. Her came to be with her and states that he feels that she does need a mental health assessment. He states that she was an inpatient about a year ago at a facility and this helped her quite a bit and he thinks that she may be in that place for this is needed again. The patient herself states that she did not do this tender life however the gesture of such a large dose of Ativan and speaks for itself. She is too sedated at this time for any [facility] health mental assessment to occur. This will likely need to happen tomorrow morning or even later depending on how functional she becomes over time. Lab Data Labs: Lab Results 01/07/23 Range/Units 19:39 WBC 5.26 (4.50-11.00) K/uL RBC 4.64 (4.00-5.20) m/uL Hgb 12.0 (12.0-16.0) gm/dL Hct 37.5 (33.0-51.0) % MCV 81 (80-100) fL MCH 26 (26-34) pg MCHC 32 (32-36) gm/dL RDW Coeff of Vega 20.3 H (11.5-15.5) % Plt Count 381 (140-440) K/uL Neut % (Auto) 42.9 (42.0-72.0) % Lymph % (Auto) 44.3 H (20-44) % [place] % (Auto) 8.4 (0.0-11.0) % Eos % (Auto) 3.2 (0.0-7.0) % Baso % (Auto) 0.8 (0.0-3.0) % Neut # (Auto) 2.26 (1.7-7.0) K/uL Lymph # (Auto) 2.30 (0.90-2.90) K/uL [place] # (Auto) 0.40 (0.00-0.90) K/UL Eos # (Auto) 0.17 (0.00-0.50) K/uL Baso # (Auto) 0.04 (0.00-0.30) K/uL Abs Immat Gran (auto) 0.02 (0.00-0.30) K/uL Imm/Tot Granulo (auto) 0.4 % Sodium 136 (135-149) mmol/L Potassium 3.7 (3.6-5.1) mmol/L Chloride 104 (96-114) mmol/L Carbon Dioxide 23 (20-32) mmol/L BUN 9 (5-24) mg/dL Creatinine 0.6 (0.5-1.5) mg/dL Estimated Creat Clear 105.48 Estimated GFR 121 ml/min Glucose 89 (60-115) mg/dL Calcium 9.2 (8.4-10.6) mg/dL Total Bilirubin 0.5 (0.1-1.5) mg/dL Direct Bilirubin 0.0 (0.0-0.5) mg/dL AST 36 H (12-35) U/L ALT 40 H (4-35) U/L Alkaline Phosphatase 70 (40-150) U/L Total Protein 7.2 (6.0-8.3) g/dL Albumin 4.4 (3.3-5.0) g/dL Salicylates < 1.0 L (1.0-10) mg/dL Acetaminophen < 10.0 L (10.0-30.0) ug/mL Ethyl Alcohol < 0.01 L (0.01-0.03) % ECG Data Attestation: I personally reviewed and interpreted this ECG as follows: Interpretation: Normal sinus rhythm. Rate is 91 beats per minute. There are no ST or T-wave abnormalities. Discharge Plan Discharge Clinical Impression: Anxiety, Drug overdose Prescriptions: No Action dextroamphetamine-amphetamine 20 mg tablet 20 mg PO DAILY Patient Comments: 20MG QAM AND 10MG QNOON trazodone 100 mg tablet 100 mg PO HS Patient Comments: TAKE ONE TABLET BY MOUTH AT BEDTIME albuterol sulfate [Ventolin HFA] 90 mcg/actuation HFA aerosol inhaler 2 puff INHALATION Q6H PRN (Reason: wheezing) cyanocobalamin (vitamin B-12) 1,000 mcg tablet 1,000 mcg PO DAILY duloxetine 30 mg capsule,delayed release(DR/EC) 90 mg PO HS Patient Comments: 1 CAP BID X 30DAYS, THEN 2 CAPS BID PATIENTS SAYS TAKING 90MG DAILY Follow Up/Referrals: Jakub Cai MD [Primary Care Provider] -
--- NOTE | 2023-01-07 18:56 | ED.NURSE ---
patient has taken 15 mg total of 1 mg tablet today at 1810. called poison control and drowsiness. Will peak 1 1/2 hours and provide supportive care. Poison control does not recommend reversal agent unless needing to intubate. Obtain acetaminophen and Salicylate levels along with ETOH level. Updated Dr. Claros of what poison control recommended.
[2023-01-07] MEDS: 0.9 % SODIUM CHLORIDE 1000 ml 1,000 ML IV (19:35)
[2023-01-07 19:51] LABS: Basophils Absolute Auto 0.04 K/uL (0.00-0.30); Basophils Percent Auto 0.8 % (0.0-3.0); Eosinophils Absolute Auto 0.17 K/uL (0.00-0.50); Eosinophils Percent Auto 3.2 % (0.0-7.0); Hematocrit 37.5 % (33.0-51.0); Immature Granulocytes Abs Auto 0.02 K/uL (0.00-0.30); Immature Granulocytes Pct Auto 0.4 %; Lymphocytes Percent Auto 44.3 % (20-44); Mean Corpuscular HGB Conc 32 gm/dL (32-36); Mean Corpuscular Hemoglobin 26 pg (26-34); Mean Corpuscular Volume 81 fL (80-100); Monocytes Percent Auto 8.4 % (0.0-11.0); Neutrophils Absolute Auto 2.26 K/uL (1.7-7.0); Neutrophils Percent Auto 42.9 % (42.0-72.0); Platelet Count* 381 K/uL (140-440); RDW Coefficient of Variation % 20.3 % (11.5-15.5); Red Blood Count 4.64 m/uL (4.00-5.20); White Blood Count* 5.26 K/uL (4.50-11.00)
--- NOTE | 2023-01-07 19:56 | ED.NURSE ---
Pt very drowsy in room. Pt verbalized seeing everything in the room in shades of green and pink. Pt noted to jump when hand or arm is touched to provide cares. at bedside. Video monitoring in place. Pt started on 2L oxygen via [place] @ 1922. Dr. Claros aware.
[2023-01-07 19:58] LABS: Slide Review Reflex No
[2023-01-07 20:03] LABS: Chloride* 104 mmol/L (96-114)
[2023-01-07 20:04] LABS: Albumin* 4.4 g/dL (3.3-5.0); Sodium* 136 mmol/L (135-149)
[2023-01-07 20:05] LABS: Potassium* 3.7 mmol/L (3.6-5.1)
[2023-01-07 20:06] LABS: Carbon Dioxide* 23 mmol/L (20-32); Creatinine* 0.6 mg/dL (0.5-1.5); Est. Creatinine Clearance* 105.48; Estimated Glomerular Filt Rate 121 ml/min
[2023-01-07 20:07] LABS: Alkaline Phosphatase* 70 U/L (40-150); Aspartate Amino Transferase* 36 U/L (12-35); Bilirubin Total* 0.5 mg/dL (0.1-1.5); Blood Urea Nitrogen* 9 mg/dL (5-24); Calcium* 9.2 mg/dL (8.4-10.6); Glucose* 89 mg/dL (60-115); Total Protein* 7.2 g/dL (6.0-8.3)
[2023-01-07 20:08] LABS: Alanine Aminotransferase* 40 U/L (4-35)
[2023-01-07 20:19] LABS: Acetaminophen* < 10.0 ug/mL (10.0-30.0); Ethanol* < 0.01 % (0.01-0.03); Salicylate* < 1.0 mg/dL (1.0-10)
--- NOTE | 2023-01-07 23:22 | ED.NURSE ---
Pt moved from ED room 8 to ED room 1. Pt still very drowsy, but arousable to verbal stimuli. Pt has been sleeping since shortly after arrival. Video monitoring has been in place the entirety of her stay. Video monitoring continues to be in place with room change. Pt confused when awake. Asking where she is and what happened. Questions answered and reassurance provided. Pt changed into behavioral health scrubs. Assisted to use bedside commode. Comfort provided with warm blanket and dark room. Will continue to monitor.
[2023-01-07 23:23] LABS: Appearance Urine Clear (Clear); Bilirubin Urine Negative (Negative); Blood Urine Negative (Negative); Color Urine Yellow (Yellow); Glucose Urine Negative (Negative); Ketones Urine Negative (Negative); Leukocyte Esterase Urine Negative (Negative); Nitrite Urine Negative (Negative); Protein Urine Negative (Negative); Specific Gravity Urine 1.015 (1.000-1.030); Urobilinogen Urine 0.2 (0.2-1.0); pH Urine 6.5 (5.0-8.5)
[2023-01-07 23:33] LABS: Amphetamine Screen Urine POSITIVE (Negative); Bacteria Urine Few; Barbiturate Screen Urine Negative (Negative); Benzodiazepines Screen Urine POSITIVE (Negative); Cannabinoid Screen Urine Negative (Negative); Cocaine Screen Urine Negative (Negative); Methadone Screen Urine Negative (Negative); Methamphetamines Screen Urine Negative (Negative); Opiate Screen Urine Negative (Negative); Oxycodone Screen Urine Negative (Negative); Phencyclidine Screen Urine Negative (Negative); RBC Urine 0-2 (0-2); Squamous Epithelial Cell Urine Few (None-Few); Tricyclic Antidepressant Urine Negative (Negative)
[2023-01-08] VITALS (21 sets, daily range): BP systolic 92–141; BP diastolic 52–88; PULSE 69–98; RESP 15–19; O2SAT 95–99
--- NOTE | 2023-01-08 00:11 | ED.NURSE ---
Oxygen discontinued when moved from room 8 to room 1. Patient breathing better and end tidal CO2 improved. Pt maintaining sats 96% or higher on room air.
--- NOTE | 2023-01-08 07:45 | ED.NURSE ---
DEC assessment started. Meal tray ordered for pt.
--- NOTE | 2023-01-08 08:13 | ED.NURSE ---
DEC assessment complete.
--- NOTE | 2023-01-08 08:34 | ED.NURSE ---
DEC safety plan reviewed with pt, pt signed that she agreed with safety plan. Pt provided with copy of safety plan. Nonprofit Director provided pt with discharge packet, pt remained silent and refused to sign discharge paperwork. Nonprofit Director asked pt again to sign discharge paperwork, pt continued to remain silent and would not make eye contact with writer technical publications. Nonprofit Director verbally noted to pt that I would note on her discharge paperwork that she refused to sign. Nonprofit Director confirmed again with pt that she was comfortable going home and felt safe at home. Pt stated she was comfortable going home and that she felt safe going home. Pt asked writer technical publications to notify her of discharge plan. contacted and updated, pt talking with on the phone as well. Nonprofit Director checked for IV to remove from pt, no IV found on either of pt's arms. Pt provided with her belongings.
== END 2023-01-08 09:58 | disposition home or self-care (01) ==
PROVIDERS: Emergency Provider Emergency Medicine Emergency Medical Services; PCP Family Medicine
DX: T42.4X1A Poisoning by benzodiazepines, accidental (unintentional), initial encounter (principal)
CPT/HCPCS: 36415; 80048; 80076; 80143; 80179; 80306; 81001; 82077; 84443; 85025; 87086; 93005; 94761; 99284; 99285; 99291; J7030

== ENCOUNTER 2023-03-09 15:47 | Emergency (ER) | payer OTHER, SELFPAY ==
[2023-03-09 15:54] VITALS: BP 124/86; PULSE 85; RESP 20; TEMP 37.4; O2SAT 98; BMI 25.6
--- NOTE | 2023-03-09 17:13 | ED.GENADULT ---
HPI - General Adult General Date Seen: 03/09/23 Chief complaint: Abdominal Pain Stated complaint: Crohns flareup Time Seen by Provider: 03/09/23 16:32 Source: patient Mode of arrival: ambulatory Limitations: no limitations History of Present Illness HPI narrative: Patient is a 32-year-old female with a history of fatty liver disease, Crohn's disease, previous cholecystectomy and previous gastric bypass surgery presenting to the emergency department for right upper quadrant pain. She states the pains were gone for the past few days but has been getting worse. She has had for symptoms like this before for Crohn's flare ups. It is always in the same part of her right upper quadrant. She does note the pain seems worse this time. Usually when she has these flare-ups she has diarrhea but this time she notes uses passing mucus and blood. She spoke to her GI specialist I told her to come to the emergency department to be evaluated. She states taking Tylenol for pain as she can not take ibuprofen due to her previous gastric bypass surgery. He is having some associated nausea. Also has oral ulcers a she states she gets whenever she has a flare-up of his taking any lidocaine mouth rinse for them and is not concerned about them at this time. Related Data Home Medications Medication Instructions Recorded Confirmed dextroamphetamine-amphetamine 20 20 mg PO DAILY 04/14/22 01/07/23 mg tablet trazodone 100 mg tablet 100 mg PO HS 04/14/22 03/09/23 albuterol sulfate 90 mcg/actuation 2 puff inhalation Q6H PRN wheezing 12/13/22 03/09/23 aerosol inhaler (Ventolin HFA) cyanocobalamin (vitamin B-12) 1,000 mcg PO DAILY 12/13/22 03/09/23 1,000 mcg tablet duloxetine 30 mg capsule,delayed 90 mg PO HS 12/13/22 03/09/23 release bupropion HCl 150 mg 24 hr tablet, 150 mg PO DAILY 03/09/23 03/09/23 extended release sulfasalazine 500 mg 0.5 g PO DAILY 03/09/23 03/09/23 tablet,delayed release Allergies Allergy/AdvReac Type Severity Reaction Status Date / Time amoxicillin Allergy Intermediate Hives Verified 03/09/23 17:13 metoclopramide [From Reglan] Allergy Mild anxiety, Verified 03/09/23 17:13 skin is crawling Penicillins Allergy Mild Hives Verified 03/09/23 17:13 prochlorperazine Allergy Mild anxiety, Verified 03/09/23 17:13 [From Compazine] skin crawling NSAIDS (Non-Steroidal Allergy Verified 03/09/23 17:13 Anti-Inflamma Review of Systems Status of ROS: Reports: 10 or more systems reviewed and unremarkable except as noted in History and below [facility] Medical History Abdominal pain ?R10.9 - Unspecified abdominal pain (ICD-10) Herpes zoster ?B02.9 - Zoster without complications (ICD-10) Spell of altered consciousness ?R40.4 - Transient alteration of awareness (ICD-10) Malnutrition ?E46 - Unspecified protein-calorie malnutrition (ICD-10) History of gastrostomy tube placement Controlled substance agreement signed ?Z79.899 - Other long filler cigar roller machine (current) drug therapy (ICD-10) Hematoma of rectus sheath ?S30.1XXA - Contusion of abdominal wall, initial encounter (ICD-10) PTSD (post-traumatic stress disorder) ?F43.10 - Post-traumatic stress disorder, unspecified (ICD-10) ADHD ?F90.9 - Attention-deficit hyperactivity disorder, unspecified type (ICD-10) Major depressive disorder ?F32.9 - Major depressive disorder, single episode, unspecified (ICD-10) Deep vein thrombophlebitis of arm ?I80.8 - Phlebitis and thrombophlebitis of other sites (ICD-10) Transaminitis ?R74.01 - Elevation of levels of liver transaminase levels (ICD-10) Asthma ?J45.909 - Unspecified asthma, uncomplicated (ICD-10) Lung nodule ?R91.1 - Solitary pulmonary nodule (ICD-10) Fatty liver ?K76.0 - Fatty (change of) liver, not elsewhere classified (ICD-10) Hyperlipidemia ?E78.5 - Hyperlipidemia, unspecified (ICD-10) 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 (ICD-10) Migraine ?G43.909 - Migraine, unspecified, not intractable, without status migrainosus (ICD-10) Severe preeclampsia ?O14.10 - Severe pre-eclampsia, unspecified trimester (ICD-10) Pneumonia ?J18.9 - Pneumonia, unspecified organism (ICD-10) Cholecystectomy planned Kidney stones ?N20.0 - Calculus of kidney (ICD-10) Urinary frequency ?R35.0 - Frequency of micturition (ICD-10) Nerve pain ?M79.2 - Neuralgia and neuritis, unspecified (ICD-10) Cold sore ?B00.1 - Herpesviral vesicular dermatitis (ICD-10) Surgical History Hx of cholecystectomy ?Z90.49 - Acquired absence of other specified parts of digestive tract (ICD-10) Gastric bypass status for obesity ?Z98.84 - Bariatric surgery status (ICD-10) Family History Maternal Grandmother Breast cancer High blood pressure Mother Breast cancer Skin cancer Paternal Grandmother Lung cancer Aunt Breast cancer Daughter Congenital heart disease Maternal Grandfather Myocardial infarction High cholesterol High blood pressure Stroke Father High cholesterol High blood pressure Paternal Grandfather High cholesterol High blood pressure Social History Narrative: . Two young daughters. Denies tobacco use or illicit drug use. 1 glass of wine per week, most recent drink was the night before admission. What is your current living situation?: I presently have a place to live Problems where you live: no known problems Problems where you live details: none In the past 12 months, utilities in danger of being shut off: no In past 12 months, lack of transportation kept you from medical appts, meetings, work, or getting things needed for daily living: no In the past 12 mos, have been you worried that your food would run out before you had money to buy more?: never true In the past 12 mos, the food you bought just didn't last and you didn't have money to buy more?: never true Highest level of school completed/degree received: Master's degree Smoking Status: Former smoker What tobacco products do you use: cigarettes Smoking quit date/years: <= 15 years ago Do you use any of these nicotine containing products: None Second hand tobacco smoke exposure: No How often do you have a drink containing alcohol: monthly or less How many standard drinks containing alcohol do you have on a typical day: 1 or 2 How often do you have six or more drinks on one occasion: Never AUDIT-C Alcohol total score: 1 Non-prescribed substance use: denies use Caffeine: Yes (coffee) How often does anyone, including family, friends and others, physically hurt you: never How often does anyone, including family, friends and others, insult or talk down to you: never How often does anyone, including family, friends and others, threaten you with harm: never How often does anyone, including family, friends and others, scream or curse at you: never service: No Exam Narrative: Exam Narrative: Const: Well-nourished, Well-developed, in moderate distress Eyes: PERRL, no conjunctival injection, and symmetrical lids HENT: Atraumatic external nose and ears. Moist mucous membranes. Neck: Symmetric, trachea midline, No thyromegaly. CVS: RRR, No murmurs or gallops. Peripheral pulses 2+ and equal in all extremities RESP: Unlabored respiratory effort. Clear to auscultation bilaterally. GI: Right upper quadrant tenderness, Nondistended, No rebound or guarding. MSK:Extremities w/o deformity, Normal Active ROM Skin: Warm, Dry. No rashes or lesions. Neuro: Normal Muscle tone, No focal neurological deficits. Psych: Awake, Alert, & Oriented x3. Appropriate mood and affect. Const: Vital Signs, click to edit/add: Vital Signs - 24 hr 03/09/23 15:54 03/09/23 17:31 03/09/23 17:50 Temperature 99.3 F Pulse Rate [Pulse Oximeter] 85 88 92 Respiratory Rate 20 14 14 Blood Pressure [Ri ght Upper Arm] 124/86 148/91 H 157/96 H Pulse Oximetry 98 96 96 Oxygen Delivery Me thod Room Air Room Air Room Air 03/09/23 18:08 03/09/23 18:30 Temperature Pulse Rate [Pulse Oximeter] Respiratory Rate Blood Pressure [Ri ght Upper Arm] 145/108 H 153/104 H Pulse Oximetry 99 Oxygen Delivery Me thod Room Air Course Vital Signs Vital signs: Initial Vital Signs Temperature 99.3 F 03/09/23 15:54 Temperature Source Temporal Artery Scan 03/09/23 15:54 Pulse Rate 85 03/09/23 15:54 Respiratory Rate 20 03/09/23 15:54 Blood Pressure 124/86 03/09/23 15:54 Blood Pressure Mean 98 03/09/23 15:54 Pulse Oximetry 98 03/09/23 15:54 Oxygen Delivery Method Room Air 03/09/23 15:54 Vital Signs Temperature 99.3 F 03/09/23 15:54 Pulse Rate 85 03/09/23 15:54 Respiratory Rate 20 03/09/23 15:54 Blood Pressure 124/86 03/09/23 15:54 Pulse Oximetry 98 03/09/23 15:54 Oxygen Delivery Method Room Air 03/09/23 15:54 Temperature 99.3 F 03/09/23 15:54 Pulse Rate 92 03/09/23 17:50 Respiratory Rate 14 03/09/23 17:50 Blood Pressure 153/104 H 03/09/23 18:30 Pulse Oximetry 99 03/09/23 18:30 Oxygen Delivery Method Room Air 03/09/23 18:30 Medical Decision Making MDM Narrative Medical decision making narrative: Patient is a 32-year-old female with multiple abdominal surgeries and Crohn's disease presenting for right upper quadrant pain. She no longer has a gallbladder. There is a history of acute hepatitis. He states this feels like previous Crohn flare ups only more painful. She will be given morphine for pain. Concerning her extensive history and the fact that she she has diarrhea and is now only passing blood we will do a CT scan with IV contrast. There is some concern for small bowel obstruction at this time. Morphine was given for pain and Zofran is given for nausea. Later on before CT scan patient states she would prefer to do an ultrasound. She states she is concerned involve the radiation she has had from CT scans and that usually when she goes and her GI specialist they do ultrasound to review everything. She states that is how she found out that she had a stricture. She states she has been passing gas in the soft when she has a bowel obstruction. I explained to her extensively that the ultrasound cannot have as detailed information as the CT scan and would not be able to definitively rule out all intra-abdominal issue such as a bowel obstruction. Patient was given morphine and then Dilaudid in she says the pain is now tolerable. Ultrasound returns showing no concerning acute abnormalities. I informed her of these results and then explained to her the limitations of ultrasound. She states she feels comfortable discharging home and will follow-up with her GI provider on Thursday. She will be prescribed oxycodone through [employer]. Headache informed her to return to emergency department immediately for any worsening symptoms and she is agreeable to this. She will be discharged home. Lab Data Labs: Lab Results 03/09/23 03/09/23 Range/Units 17:15 18:55 WBC 5.14 (4.50-11.00) K/uL RBC 4.62 (4.00-5.20) m/uL Hgb 13.1 (12.0-16.0) gm/dL Hct 38.9 (33.0-51.0) % MCV 84 (80-100) fL MCH 28 (26-34) pg MCHC 34 (32-36) gm/dL RDW Coeff of [place] 15.0 (11.5-15.5) % Plt Count 376 (140-440) K/uL Neut % (Auto) 44.1 (42.0-72.0) % Lymph % (Auto) 43.0 (20-44) % [place] % (Auto) 6.8 (0.0-11.0) % Eos % (Auto) 4.9 (0.0-7.0) % Baso % (Auto) 1.0 (0.0-3.0) % Neut # (Auto) 2.27 (1.7-7.0) K/uL Lymph # (Auto) 2.21 (0.90-2.90) K/uL [place] # (Auto) 0.30 (0.00-0.90) K/UL Eos # (Auto) 0.25 (0.00-0.50) K/uL Baso # (Auto) 0.05 (0.00-0.30) K/uL Abs Immat Gran (auto) 0.01 (0.00-0.30) K/uL Imm/Tot Granulo (auto) 0.2 % Sodium 138 (135-149) mmol/L Potassium 3.7 (3.6-5.1) mmol/L Chloride 105 (96-114) mmol/L Carbon Dioxide 25 (20-32) mmol/L Anion Gap 8 (7-15) mEq/L BUN 11 (5-24) mg/dL Creatinine 0.6 (0.5-1.5) mg/dL Estimated Creat Clear 105.48 Estimated GFR 121 ml/min Glucose 83 (60-115) mg/dL Calcium 9.5 (8.4-10.6) mg/dL Total Bilirubin 0.3 (0.1-1.5) mg/dL AST 34 (12-35) U/L ALT 32 (4-35) U/L Alkaline Phosphatase 83 (40-150) U/L Total Protein 7.6 (6.0-8.3) g/dL Albumin 4.6 (3.3-5.0) g/dL Lipase 85 (23-300) U/L Urine Color Yellow (Yellow) Urine Appearance Clear (Clear) Urine pH 7.0 (5.0-8.5) Ur Specific [place] 1.015 (1.000-1.030) Urine Protein Negative (Negative) Urine Glucose (UA) Negative (Negative) Urine Ketones Negative (Negative) Urine Blood Trace-intact A (Negative) Urine Nitrite Negative (Negative) Urine Bilirubin Negative (Negative) Urine Urobilinogen 0.2 (0.2-1.0) Ur Leukocyte Esterase Negative (Negative) Urine RBC 0-2 (0-2) Urine WBC 0-2 (0-5) Ur Squamous Epith Cells Few (None-Few) Urine Bacteria None (None) Imaging Data Abdominal ultrasound: Radiologist's impression: INDICATION: Abdominal pain. TECHNIQUE: Ultrasound abdomen complete. Sonographic images of the entire abdomen were obtained using cardona-scale and color Doppler. COMPARISON: December 13, 2022. FINDINGS: Liver: Mild increased hepatic echogenicity, possibly suggestive of chronic hepatocellular disease including steatosis. No masses. No intrahepatic biliary dilatation. Gallbladder: Cholecystectomy. Common bile duct: 4 mm. Pancreas: Obscured. Spleen: Normal in size and appearance. Kidneys: Both kidneys are normal in size. Normal echotexture and cortex. No suspicious masses, stones, or hydronephrosis. Vasculature: Proximal abdominal aorta and IVC are normal in caliber. IMPRESSION: Prior cholecystectomy. No biliary obstruction. Mild increased hepatic echogenicity, possibly suggestive of chronic hepatocellular disease, including steatosis. Dictated by Reymundo Lisa MD @ 03/09/2023 7:52:56 PM Discharge Plan Discharge Clinical Impression: Crohn disease Qualifiers: Gastrointestinal tract location: unspecified location Digestive disease complication type: unspecified complication Qualified Code(s): K50.919 - Crohn's disease, unspecified, with unspecified complications Patient Disposition: Home, Self-Care Condition: Improved Instructions: Crohn Disease (ED) Additional Instructions: Take the oxycodone for pain as needed. Follow up with the GI provider on Thursday as he of scheduled. If symptoms worsen please return to the emergency department. As we spoke about the ultrasound cannot definitively say you do not have a small-bowel obstruction. Prescriptions: No Action dextroamphetamine-amphetamine 20 mg tablet 20 mg PO DAILY Patient Comments: 20MG QAM AND 10MG QNOON trazodone 100 mg tablet 100 mg PO HS Patient Comments: TAKE ONE TABLET BY MOUTH AT BEDTIME albuterol sulfate [Ventolin HFA] 90 mcg/actuation HFA aerosol inhaler 2 puff INHALATION Q6H PRN (Reason: wheezing) cyanocobalamin (vitamin B-12) 1,000 mcg tablet 1,000 mcg PO DAILY duloxetine 30 mg capsule,delayed release(DR/EC) 90 mg PO HS Patient Comments: 1 CAP BID X 30DAYS, THEN 2 CAPS BID PATIENTS SAYS TAKING 90MG DAILY bupropion HCl 150 mg tablet extended release 24 hr 150 mg PO DAILY sulfasalazine 500 mg tablet,delayed release (DR/EC) 0.5 g PO DAILY Follow Up/Referrals: Jakub Cai MD [Primary Care Provider] - Stand Alone Forms: [employer] Info Instructions
[2023-03-09] MEDS: LACTATED RINGERS 1000 ML 1,000 ML IV (17:21)
[2023-03-09 17:22] LABS: Basophils Absolute Auto 0.05 K/uL (0.00-0.30); Eosinophils Absolute Auto 0.25 K/uL (0.00-0.50); Eosinophils Percent Auto 4.9 % (0.0-7.0); Hematocrit 38.9 % (33.0-51.0); Hemoglobin* 13.1 gm/dL (12.0-16.0); Immature Granulocytes Abs Auto 0.01 K/uL (0.00-0.30); Immature Granulocytes Pct Auto 0.2 %; Lymphocytes Absolute Auto 2.21 K/uL (0.90-2.90); Mean Corpuscular HGB Conc 34 gm/dL (32-36); Mean Corpuscular Hemoglobin 28 pg (26-34); Mean Corpuscular Volume 84 fL (80-100); Monocytes Percent Auto 6.8 % (0.0-11.0); Neutrophils Absolute Auto 2.27 K/uL (1.7-7.0); Neutrophils Percent Auto 44.1 % (42.0-72.0); Platelet Count* 376 K/uL (140-440); Red Blood Count 4.62 m/uL (4.00-5.20); White Blood Count* 5.14 K/uL (4.50-11.00)
[2023-03-09] MEDS: ONDANSETRON 2 MG/ML inj 4 MG IVP (17:23)
[2023-03-09 17:25] LABS: Slide Review Reflex No
[2023-03-09] MEDS: MORPHINE 4 MG/ML INJ IVP (17:25)
[2023-03-09 17:31] VITALS: BP 148/91; PULSE 88; RESP 14; O2SAT 96
[2023-03-09 17:42] LABS: Albumin* 4.6 g/dL (3.3-5.0); Chloride* 105 mmol/L (96-114); Sodium* 138 mmol/L (135-149)
[2023-03-09 17:43] LABS: Potassium* 3.7 mmol/L (3.6-5.1)
[2023-03-09 17:45] LABS: Alanine Aminotransferase* 32 U/L (4-35); Alkaline Phosphatase* 83 U/L (40-150); Anion Gap 8 mEq/L (7-15); Aspartate Amino Transferase* 34 U/L (12-35); Bilirubin Total* 0.3 mg/dL (0.1-1.5); Blood Urea Nitrogen* 11 mg/dL (5-24); Carbon Dioxide* 25 mmol/L (20-32); Creatinine* 0.6 mg/dL (0.5-1.5); Est. Creatinine Clearance* 105.48; Estimated Glomerular Filt Rate 121 ml/min; Glucose* 83 mg/dL (60-115); Lipase* 85 U/L (23-300); Total Protein* 7.6 g/dL (6.0-8.3)
[2023-03-09 17:46] LABS: Calcium* 9.5 mg/dL (8.4-10.6)
[2023-03-09 17:50] VITALS: BP 157/96; PULSE 92; RESP 14; O2SAT 96
--- NOTE | 2023-03-09 17:58 | CRLHL7_ITS ---
For Patients: As a result of the Century Cures Act, medical imaging exams and procedure reports are released immediately into your electronic medical record. You may view this report before your referring provider. If you have questions, please contact your health care provider. INDICATION: Abdominal pain. TECHNIQUE: Ultrasound abdomen complete. Sonographic images of the entire abdomen were obtained using cardona-scale and color Doppler. COMPARISON: December 13, 2022. FINDINGS: Liver: Mild increased hepatic echogenicity, possibly suggestive of chronic hepatocellular disease including steatosis. No masses. No intrahepatic biliary dilatation. Gallbladder: Cholecystectomy. Common bile duct: 4 mm. Pancreas: Obscured. Spleen: Normal in size and appearance. Kidneys: Both kidneys are normal in size. Normal echotexture and cortex. No suspicious masses, stones, or hydronephrosis. Vasculature: Proximal abdominal aorta and IVC are normal in caliber. IMPRESSION: Prior cholecystectomy. No biliary obstruction. Mild increased hepatic echogenicity, possibly suggestive of chronic hepatocellular disease, including steatosis. Dictated by Reymundo Lisa MD @ 03/09/2023 7:52:56 PM (Electronically Signed)
[2023-03-09] MEDS: HYDROmorphone 0.5 mg/0.5 ml inj IVP (18:07)
[2023-03-09 18:08] VITALS: BP 145/108
[2023-03-09 18:30] VITALS: BP 153/104; O2SAT 99
[2023-03-09] MEDS: FAMOTIDINE 20 MG TABLET PO (18:51)
[2023-03-09 19:05] LABS: Appearance Urine Clear (Clear); Bilirubin Urine Negative (Negative); Blood Urine Trace-intact (Negative); Color Urine Yellow (Yellow); Glucose Urine Negative (Negative); Ketones Urine Negative (Negative); Leukocyte Esterase Urine Negative (Negative); Nitrite Urine Negative (Negative); Protein Urine Negative (Negative); Specific Gravity Urine 1.015 (1.000-1.030); Urobilinogen Urine 0.2 (0.2-1.0)
[2023-03-09 19:20] LABS: RBC Urine 0-2 (0-2); Squamous Epithelial Cell Urine Few (None-Few); WBC Urine 0-2 (0-5)
[2023-03-11 16:20] LABS: Ur HCG Qualitative* Negative (Negative)
== END 2023-03-09 20:21 | disposition home or self-care (01) ==
PROVIDERS: Emergency Provider Student in an Organized Health Care Education/Training Program; PCP Family Medicine
DX: K50.919 Crohn's disease, unspecified, with unspecified complications (principal)
CPT/HCPCS: 36415; 76700; 80053; 81001; 81025; 83690; 85025; 96361; 96374; 96375; 99283; 99284; A9270; J1170; J2270; J2405; J7120

== ENCOUNTER 2023-03-15 03:38 | Emergency (ER) | payer OTHER, SELFPAY ==
[2023-03-15 03:54] VITALS: BP 148/99; PULSE 110; RESP 18; TEMP 36.9; O2SAT 98
--- NOTE | 2023-03-15 04:12 | CRLHL7_ITS ---
For Patients: As a result of the Cures Act, medical imaging exams and procedure reports are released immediately into your electronic medical record. You may view this report before your referring provider. If you have questions, please contact your health care provider. Indication: Trauma. Technique: Right foot 3 views. Comparison: None. Findings: Bones: Alignment is normal. No fractures or bone lesions. Joint spaces: Unremarkable. Soft tissues: Unremarkable. Impression: No sign of acute injury. Dictated by Duncan Santoyo MD @ 03/15/2023 4:55:58 AM (Electronically Signed)
[2023-03-15] MEDS: OxyCODONE/APAP 5-325 TABLET 1 TAB PO (04:19)
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
--- OUTSIDE RECORDS SUMMARY | 2023-03-15 06:56 | XMS_ITS | Continuity of Care Document ---
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 Phone No Information Unavailable Unavailable Allergies, Adverse Reactions, Alerts Substance Reaction Status Criticality No Known Allergies Active No Inform ation adhesive tape Rash Active No Information Medications Medication Instructions Dosage Effective Dates (start - stop) Status Comments clonidine HCl 0.1 mg tablet take 1 tablet by ORAL route every day 0.1 MG - Active methylphenidate 5 mg tablet take 1 tablet by oral route 2 times every day 5 MG - Active trazodone 100 mg tablet take 1 tablet by oral route every day 100 MG - Active Cymbalta 60 mg capsule,delayed release take 1 capsule by oral route every day 60 MG - Active Procedures Procedure Date Colonoscopy Flex; Dx (sep Pro) 22 Ugi Endo; W/balloon Dilat Esop 22 Routine Serum Collection Established Level 5 Init Hosp-da E&m Low Severity 2 Ugi Endo; W/dilat Outlet-any M 22 Subsqt Hosp-da E&m Minr Compl 1 Subsqt Hosp-da E&m Stable 15 M 21 Ugi Endo; W/dilat Outlet-any M 21 Init Hosp-da E&m Mod Severity 1 Subsqt Hosp-da E&m Minr Compl 1 Subsqt Hosp-da E&m Minr Compl 1 Ugi Endo w/stent Init Hosp-da E&m Mod Severity 1 Ugi Endo; W/remov Fb Colonoscopy Flex; Dx (sep Pro) 21 Ugi Endo; Dx W/wo Collec Specm 21 Init Hosp-da E&m Mod Severity 1 Ugi Endo; W/remov Fb Ugi Endo w/stent Subsqt Hosp-da E&m Minr Compl 1 Subsqt Hosp-da E&m Minr Compl 1 Init Hosp-da E&m Mod Severity 1 Ugi Endo; W/bx 1/mx Ugi Endo; W/balloon Dilat Esop 21 Colonoscopy Flex; W/bx 1/mx Level Iv-surg Path Gross/micro 18 Offic/outpt E&m New Mod Sever 8 Routine Serum Collection Gg; Iga, Igd, Igg, Igm, Ea C-reactive Prot Advance Directives Directive Yes / No Effective Date File Name No Information Encounters Encounter Description Practice Location Reason(s) For Visit Diagnoses Date Provider Providers Copied on Encounter [facility] [place], [address] [address], [place], [id number], [place] tel:[phone] No Information 3 No Information [facility] [place], [address] [address], [place], [id number], [place] tel:[phone] [facility] No Information 2 Julio Fields. [address] [facility], [facility] [address], [place], [place], [id number], [place]. tel:[phone] [facility] [place], [address] [address], [place], [id number], [place] tel:[phone] [facility] GI Symptoms or Concerns (chief complaint) Unspecified abdominal painConstipat ion, unspecifiedUn specified abdominal pain 2 Joel Ramirez. [address] [facility], [facility] [address], [place], [id number], [place]. tel:[phone] Referring Provider: Referral Self. [facility], [address] [address], [place], [address], [place] tel:[phone] [facility] GI Symptoms or Concerns (chief complaint) Abdominal pain in femaleBariatr ic surgery statusUnspeci fied abdominal pain 2 Joel Ramirez. [address] [facility], [address], [id number], [place]. tel:[phone] Referring Provider: Referral Self. [facility], [address] [address], [place], [address], [place] tel:[phone] [facility] Disease of digestive system, unspecified 2 Artur BUNN Joan. [address] [facility], [facility] [address], [place], [id number], [place]. tel:[phone] Referring Provider: Lindy Richter [facility], [address] [place] [address], [address]. tel:[phone] [facility], [address] [address], [place], [id number], [place] tel:[phone] No Information 2 No Information Established Level 5 [facility], [address] [address], [place], [id number], [place] tel:[phone] [facility] GI Symptoms or Concerns (chief complaint) stricture (chief complaint) Gastric anastomotic strictureChro niles constipationH ematocheziaNa useaUpper abdominal pain 2 Artur BUNN Joan. [address] [facility], [facility] [address], [place], [address], [place]. tel:[phone] Referring Provider: Referral Self. [facility], [address] [address], [place], [address], [place] tel:[phone] [facility] No Information 2 Artur Cottera. [address] [facility], [address], [id number], [place]. tel:[phone] Init Hosp-da E&m Low Severity [facility], [address] [address], [place], [address], [place] tel:[phone] [facility] No Information 2 Nayeli Mcgraw. [address] [facility], [address], [id number], [place]. tel:[phone] Referring Provider: Lindy Richter [facility], [address] [place] [address], [address]. tel:[phone] Subsqt Hosp-da E&m Minr Compl [facility], [address] [address], [place], [address], [place] tel:[phone] [facility] No Information 1 Aldo Huynh. [address], [id number], [place]. tel:[phone] Referring Provider: Lino Carlson MD , [address], [address]. [phone] [facility], [address] [address], [place], [address], [place] tel:[phone] [facility] No Information 1 Sandra Fernandez. [address] [facility], [address], [id number], [place]. tel:[phone] Referring Provider: Lindy Richter [employer] [facility], [address] [place] [address], [address]. tel:[phone] Init Hosp-da E&m Mod Severity [facility], [address] [address], [place], [id number], [place] tel:[phone] [facility] No Information 1 Phan Ortega. [address] [facility], [facility] [address], [place], [address], [place]. tel:[phone] Referring Provider: Ernesto Perez, [address] [facility] [address], [place], [address]. [phone] Subsqt Hosp-da E&m Minr Compl [facility], [address] [address], [place], [id number], [place] tel:[phone] [facility] No Information 1 Hai Liao. [address] [place] [address], [facility] [address], [place], [id number], [place]. tel:[phone] Referring Provider: Yanni Islas, [address] [place] [address], [place], [address]. [phone] [facility], [address] [address], [facility] [place], [id number], [place] tel:[phone] [facility] No Information 1 Flory Bueno. [address] [place] [address], [facility] [address], [place], [id number], [place]. tel:[phone] Referring Provider: Myles Dalton, [facility] [address], [place], [address]. tel:[phone] Init Hosp-da E&m Mod Severity [facility], [address] [address], [place], [address], [place] tel:[phone] [facility] No Information 1 Ciera Zapien. [address] [facility], [facility] [address], [place], [address], [place]. tel:[phone] Referring Provider: Curry Zhang, [address] [facility] [address], [place], [address]. tel:[phone] [facility], [address] [address], [place], [id number], [place] tel:[phone] [facility] Anastomotic stricture of gastrojejunos tomyOth postprocedura l complications and disorders of dgstv sys 1 Flory Bueno. [address] [facility], [facility] [address], [place], [address], [place]. tel:[phone] Referring Provider: Lindy Richter [facility], [address], [address]. tel:[phone] [facility], [address] [address], [place], [address], [place] tel:[phone] [facility] No Information 1 Hakeem DREW Courtney. [address] [facility], [address], [id number], [place]. tel:[phone] Referring Provider: Referral Self. [facility], [address] [address], [place], [address], [place] tel:[phone] [facility] No Information 1 Esdras Huddleston. [address] [facility], [facility] [address], [place], [id number], [place]. tel:[phone] Referring Provider: Danny Zhang, [address] [place] [address], [address]. tel:[phone] [facility], [address] [address], [place], [address], [place] tel:[phone] [facility] No Information 1 Duc Llamas. [address] [facility], [facility] [address], [place], [address], [place]. tel:[phone] Referring Provider: Danny Zhang, [address] [place] [address], [address]. tel:[phone] In Hosp-da E&m Mod Severity [facility], [address] [address], [place], [address], [place] tel:[phone] [facility] No Information 1 Mariann Ordonez. [address] [facility], [facility] [address], [place], [address], [place]. [phone] Referring Provider: Danny Zhang, [address], [address]. [phone] [facility], [address] [address], [place], [address], [place] tel:[phone] [facility] Anastomotic stricture of gastrojejunos miracle 1 Flory Bueno. [address] [place] [address], [address], [id number], [place]. tel:[phone] [facility], [address] [address], [place], [address], [place] tel:[phone] [facility] Anastomotic stricture of gastrojejunos miracle 1 Flory Bueno. [address] [place] [address], [facility] [address], [place], [address], [place]. tel:[phone] [facility], [address] [address], [place], [address], [place] tel:[phone] [facility] No Information 1 Flory Bueno. [address] [place] [address], [address], [id number], [place]. tel:[phone] Referring Provider: Myles Dalton, [address] [place] [address], [address]. tel:[phone] [facility], [address] [address], [place], [address], [place] tel:[phone] [facility] No Information 1 Flory Bueno. [address] [place] [address], [facility] [address], [place], [address], [place]. tel:[phone] Subsqt Hosp-da E&m Minr Compl [facility], [address] [address], [place], [address], [place] tel:[phone] [facility] No Information [address] [facility], [address], [id number], [place]. tel:[phone] Referring Provider: Maria R Ellis MD, [address] [place], [address]. tel:[phone] Subsqt Hosp-da E&m Minr Compl [facility], [address] [address], [place], [place], [address], [place] tel:[phone] [facility] No Information 1 Hai Liao. [address] [place] [address], [id number], [place]. tel:[phone] Referring Provider: Yanni Islas, [address] [place] [address], [address]. tel:[phone] Init Hosp-da E&m Mod Severity [facility], [address] [address], [place], [place], [address], [place] tel:[phone] [facility] No Information [address] [facility]1 [facility], [address], [id number], [place]. tel:[phone] Referring Provider: Maria R Ellis MD, [address] [place] [address], [place], [address]. tel:[phone] [facility], [address] [address], [place], [place], [address], [place] tel:[phone] [facility] Hemorrhage of anus and rectumLower abdominal pain, unspecifiedIn ternal hemorrhoidsHe morrhage of anus and rectumLower abdominal pain, unspecifiedOt her hemorrhoids Nov-0 201 8 Franck Davalos. [address] [facility], [address], [id number], [place]. tel:[phone] Referring Provider: Referral Self. Offic/outpt E&m [facility] [address] [address], [place], [place], [address], [place] tel:[phone] [facility] GI Symptoms or Concerns (chief complaint) Lower abdominal painRectal bleedingDieta ry counseling and surveillance 8 Ema Case. [address] [facility], [facility] [address], [place], [place], [address], [place]. tel:[phone] Referring Provider: Tyler Miguel MD , [facility] [place], [address]. tel:[phone] Family History Family Member Type Diagnosis Age At Onset Mother Problem (finding) Asthma Father Problem (finding) Crohn's disease Mother Problem (finding) Cancer, cervical Mother Problem Barrette's Esophagus Daughter Problem (finding) Asthma Mother Problem (finding) Family history of Ulcer ative colitis Sister Problem (finding) Alcoholism Mother Problem (finding) malignant neop lasm of breast in first degree relative Sister Problem (finding) Asthma Mother Problem (finding) GERD Father Problem (finding) Alcoholism Immunizations Vaccine Date Status Comments SARS-COV-2 (COVID-19) vaccin e, mRNA, spike protein, LNP, bivalent booster, preservative free, 30 mcg/0.3 mL dose, sheri-sucrose formulation administered Note: [facility] bi-d irectional interface ; Source: Other Registry Afluria Qd administered Note: [facility] bi-directional interface ; Source: Other Registry SARS-COV-2 (COVID-19) vaccin e, mRNA, spike protein, LNP, preservative free, 100 mcg/0.5mL dose or 50 mcg/0.25mL dose administered Note: [facility] bi -directional interface ; Source: Other Registry SARS-COV-2 (COVID-19) vaccin e, mRNA, spike protein, LNP, preservative free, 30 mcg/0.3mL dose administered Note: [facility] bi-direct ional interface ; Source: Other Registry Afluria Qd administered Note: [facility] bi-directional interface ; Source: Other Registry SARS-COV-2 (COVID-19) vaccin e, mRNA, spike protein, LNP, preservative free, 30 mcg/0.3mL dose administered Note: [facility] bi-direct ional interface ; Source: Other Registry SARS-COV-2 (COVID-19) vaccin e, mRNA, spike protein, LNP, preservative free, 30 mcg/0.3mL dose administered Note: [facility] bi-direct ional interface ; Source: Other Registry Afluria Qd administered Note: [facility] bi-directional interface ; Source: Other Registry Afluria Qd administered Note: [facility] bi-directional interface ; Source: Other Registry Pneumovax 23 administered Note: [facility] bi-d irectional interface ; Source: Other Registry Afluria Qd administered Note: [facility] bi-directional interface ; Source: Other Registry Afluria Qd administered Note: [facility] bi-directional interface ; Source: Other Registry Afluria Qd administered Note: M [facility] bi-directional interface ; Source: Other Registry Afluria Qd administered Note: M [facility] bi-directional interface ; Source: Other Registry tetanus toxoid, reduced diphtheria toxoid, and acellular pertussis vaccine, adsorbed administered Note: [facility] b i-directional interface ; Source: Other Registry Afluria Qd administered Note: [facility] bi-directional interface ; Source: Other Registry Afluria Qd administered Note: [facility] bi-directional interface ; Source: Other Registry Afluria Qd administered Note: [facility] bi-directional interface ; Source: Other Registry Afluria Qd administered Note: [facility] bi-directional interface ; Source: Other Registry Afluria Qd administered Note: M [facility] bi-directional interface ; Source: Other Registry Afluria Qd administered Note: [facility] bi-directional interface ; Source: Other Registry human papilloma virus vaccin e, quadrivalent administered Note: [facility] bi-direct ional interface ; Source: Other Registry tetanus toxoid, reduced diphtheria toxoid, and acellular pertussis vaccine, adsorbed administered Note: [facility] b i-directional interface ; Source: Other Registry diphtheria, tetanus toxoids and acellular pertussis vaccine administered Note: [facility] b i-directional interface ; Source: Other Registry Influenza, injectable,quadrivalent, preservative free, pediatric administered Note: [facility] bi-directional interface ; Source: Other Registry Novel [id number], injectable administered Note: [facility] bi-direct ional interface ; Source: Other Registry Payers Payer name Insurance type Covered green party ID Authoriza tion(s) No Information Social History Type Description Quantity Date Captured Comments Sex Female Smoking Status No Information Chief Complaint And Reason For Visit No Information Reason For Referral Reason For Referral No Information Plan Of Treatment Date Type Action Status Goal Lifestyle education regardin g diet completed Referral Ordered: referred to Bariatric Surgery reversal of bypass ordered Referral Ordered: Lipase Appointment date/timeframe: 11/05/2021 ordered Referral Ordered: Breath Test Fructose Appointment date/timeframe: First Available ordered Referral Ordered: Hepatic Function Panel Appointment date/timeframe: 11/05/2021 ordered Referral Ordered: Breath Test Glucose Appointment date/timeframe: First Available ordered Referral Ordered: Celiac: TTG IgA + Total IgA Appointment date/timeframe: 11/05/2021 ordered Referral Ordered: Administer 0.9% NaCl 1000mL over a minimum of 31 minutes, one time, by IV route ordered Referral Ordered: referred to Colon and Rectal Surgery Pelvic Floor Eval ordered Referral Ordered: CBC Appointment date/timeframe: 11/05/2021 ordered Referral Ordered: Breath Test Lactose Appointment date/timeframe: First Available ordered Referral Ordered: Xray Upper GI Series Appointment date/timeframe: -today ordered Referral Ordered: EGD Appointment date/timeframe: 12/12/2020 ordered Referral Ordered: Colonoscopy Appointment date/timeframe: 04/08/2018 ordered History Of Present Illness Encounter Date Complaint History Of Prese nt Illness GI Symptoms or Concerns GI Symptoms or Concerns stricture GI Symptoms or Concerns This is a 31-year-old female with a history of a gastric bypass done in August 2020 with postprocedure complications including anastomotic stricture which has been dilated several times, most recently 2 weeks ago, chronic pain, poor p.o. intake after gastric bypass status post feeding tube, and chronic constipation, who is seen today via telehealth appointment to discuss these issues.She had her gastric bypass surgery done by Dr. Garsia at [facility]. He performed an endoscopy with dilation of the anastomotic stricture a couple of weeks ago. She was told that she had gastritis on biopsies. She has tried Carafate, GI cocktail, and different PPIs without any significant improvement with her symptoms. She is not currently current on any PPI medication.She had a feeding tube for 3 months and this was removed around March 2021. When she had the feeding tube, this was the best that she has felt since her surgery. She had more energy and less pain. She was also getting periodic IV fluid infusions as needed for dehydration due to difficulty with hydration and poor p.o. intake.She was told to stop taking NSAIDs after her last procedure, but she has not taken any NSAIDs since her surgery. She was told that revision is not possible.She complains of regurgitation, food getting stuck, chronic nausea after eating, feeling uncomfortable after eating, intense cramps in her upper abdomen, and chronic constipation. She never had any of these symptoms until her gastric bypass surgery. She began to experience issues with constipation and can go up to almost 2 weeks ago, having a bowel movement and this has also been since her surgery. She has tried a number of zsep-wov-licqtzc laxatives including MiraLax, mag citrate, and Colace, which either do not work or she will get bad cramps with it. She has had to take pain medication given the significance of her pain, but this also contributes to constipation. She feels unwell, nauseated, and jittery and suspects she is most likely not getting enough caloric intake. She can sometimes pass mucus, foamy, bright red blood when she does eventually have a bowel movement.PAST MEDICAL HISTORYNotable for abdominal wall abscess, thrombophlebitis, fatty liver, Alvarado's thyroiditis, history of migraine headaches, hypothyroid, hyperlipidemia, and history of depression.CHART REVIEW (from previous hospital consultation notes) Gastric bypass surgery in August 2020. She did well for a week or 2, but then developed fairly significant nausea and vomiting. EGD showed narrowing at the anastomosis, which was felt to be due to abnormal reaction to suture material. She underwent serial dilations in order to eat. In between dilation, she would develop nausea, vomiting, and outlet obstruction with regurgitation of undigested food. A stent was placed on 10/11/[address] Oconnor, which was removed on 12/12/2020. She felt well for a week with the stent. A second stent was placed 12/26/2020 and removed 01/09/[address] Garsia. 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 She was admitted on January 22 with abdominal pain and fevers. CT with fluid collections in the right abdomen, some concern that these were abscesses, so she was placed on antibiotics, but CT-guided aspiration on January 23 demonstrated old blood. Gram stain with no PMNs, no organisms. Cultures negative. Antibiotics were discontinued. Drain was left in place.Colonoscopy November 2020 showed a normal colon and terminal ileum.She had an abdominal CT scan showing colitis in 2018. Colonoscopy in 2018 showed very small internal hemorrhoids. Normal colon and ileum. Random colon biopsies were normal.PAST MEDICAL HISTORY Past medical history includes asthma, thyroid disease, anxiety, gastric bypass, cholecystectomy, and bilateral tubal ligation.FAMILY HISTORYPositive for breast cancer in her mother. GI Symptoms or Concerns This is a pleasant 27-year-old female presenting to clinic today to discuss lower abdominal pain and rectal bleeding.The patient states that 8 days ago, she developed an acute onset of lower abdominal pain. Shortly after the pain began, she began having frequent episodes of rectal bleeding. She states that she is passing only blood and no stool. She at one point reports a syncopal episode during that time. These symptoms persisted overnight and when she woke up the next day, the abdominal pain seemed to increase. She has associated nausea, but no vomiting. She felt lightheaded, but denies any fevers, chills. She went to the emergency room on March 26 due to the severity of the pain.CBC showed elevated platelets at 473, but was otherwise normal and BMP was normal. She reports a CT scan was done and showed colitis. After her visit, I was able to obtain this record, which revealed mild thickening in the left descending colon, but was otherwise normal without any eviden Functional Status Date Functional Assessmen t No Information Instructions Date Instruction Additional Infor rakel Colon Cancer Prevention Related to Unspecified abdominal pain -Labs-Start trial of Dexilant 60mg daily (antacid)-Start trial of Linzess 145 mcg - 1 pill once a day on empty stomach in the morning for constipation-EGD/Colonoscopy-Fluids up to twice a week, if needed -Will send out samples of [employer]-Pelvic Floor Evaluation-Follow up appointment after the above workup is complete Related to Gastric anastomotic stricture Hemorrhoids Related to Inter nal hemorrhoids high fiber diet Related to Inter nal hemorrhoids Colon Cancer Prevention Related to Lower abdominal pain, unspecified I will obtain inflam matory markers and the patient is requesting a celiac panel be performed. I feel celiac disease is unlikely to be the cause of her present symptoms. We will check this today. She will be set up for a colonoscopy with terminal ileum evaluation to further assess the findings on the CT scan and obtain biopsies if needed. If no clear findings on the colonoscopy, I recommended that she start MiraLax 1 capful a day until she is seen back in clinic. Related to Lower abdominal pain Lifestyle education regarding di et Related to Dietary counseling and surveillance Assessments Type Assessment Date No Information Patient Care Teams Name Effective Dates (start - stop) Status Members No Information
[2023-03-15] MEDS: HYDROCODONE-ACETAMIN 5-325 MG 1 TAB 4 TAB PO (07:24)
[2023-03-15 07:25] VITALS: BP 136/82; PULSE 70; RESP 18; O2SAT 97
== END 2023-03-15 07:32 | disposition home or self-care (01) ==
PROVIDERS: Emergency Provider Family Medicine; PCP Family Medicine
DX: M79.661 Pain in right lower leg (principal); M79.671 Pain in right foot; V48.0XXA Car driver injured in noncollision transport accident in nontraffic accident, initial encounter
CPT/HCPCS: 29515; 73620; 99283; 99284; A9270

== ENCOUNTER 2023-04-11 06:58 | Observation (INO) | payer OTHER, SELFPAY ==
[2023-04-11] VITALS (22 sets, daily range): BP systolic 127–162; BP diastolic 81–116; PULSE 75–97; RESP 16–20; TEMP 36.7–36.8; O2SAT 94–100; BMI 24.7; BMI 26.4
--- NOTE | 2023-04-11 07:28 | ED.GENADULT ---
HPI - General Adult General Chief complaint: Post Op Complication <Malik Cisneros MD - Last Filed: 04/11/23 07:30> Stated complaint: fever, post hysterectomy <Malik Cisneros MD - Last Filed: 04/11/23 07:30> Time Seen by Provider: 04/11/23 07:22 <Malik Cisneros MD - Last Filed: 04/11/23 07:30> History of Present Illness HPI narrative: Patient is a 32-year-old woman who had hysterectomy 4 days ago who presents with lower abdominal pain nausea vomiting and malaise. He has had low-grade fever at home. She has had small amount of vaginal bleeding. She states that she is unable to keep her pain under control with Tylenol Motrin and oxycodone. She has had no blood in her vomitus he has had no dysuria no rashes. She has had no difficulties with her wounds which are healing well. She had hysterectomy due to chronic iron deficiency anemia stemming from heavy periods plus her history of gastric bypass. Pain is moderate. <Malik Cisneros MD - Last Filed: 04/11/23 07:30> Related Data Home medications: Home Medications Medication Instructions Recorded Confirmed dextroamphetamine-amphetamine 20 20 mg PO DAILY 04/14/22 04/11/23 mg tablet albuterol sulfate 90 mcg/actuation 2 puff inhalation Q6H PRN wheezing 12/13/22 04/11/23 aerosol inhaler (Ventolin HFA) cyanocobalamin (vitamin B-12) 1,000 mcg PO DAILY 12/13/22 04/11/23 1,000 mcg tablet duloxetine 30 mg capsule,delayed 120 mg PO HS 12/13/22 04/11/23 release bupropion HCl 150 mg 24 hr tablet, 150 mg PO HS 03/09/23 04/11/23 extended release Lactobacillus acidophilus 10 10,000 mmu cells PO DAILY 04/11/23 04/11/23 billion cell capsule (NewFlora) acetaminophen 325 mg tablet 650 mg PO Q6H PRN 04/11/23 04/11/23 (Non-Aspirin) calcium carbonate 500 mg-vitamin 1 tab PO DAILY 04/11/23 04/11/23 D3 5 mcg (200 unit) tablet (Oyster Shell Calcium-Vitamin D3) dextroamphetamine-amphetamine 10 1 tab PO DAILY@14 04/11/23 04/11/23 mg tablet docusate sodium 100 mg capsule 100 mg PO BID 04/11/23 04/11/23 (Colace) famotidine 20 mg tablet (Acid 20 mg PO BID PRN 04/11/23 04/11/23 Controller) ferrous sulfate 325 mg (65 mg 325 mg PO DAILY 04/11/23 04/11/23 iron) tablet ipratropium 0.5 mg-albuterol 3 mg 3 ml inhalation QID PRN wheezing 04/11/23 04/11/23 (2.5 mg base)/3 mL nebulization soln magnesium oxide 400 mg PO DAILY 04/11/23 04/11/23 multivitamin (Daily Multi-Vitamin 1 tab PO DAILY 04/11/23 04/11/23 tablet) oxycodone 5 mg tablet 5 mg PO Q4H PRN 04/11/23 04/11/23 pantoprazole 40 mg tablet,delayed 40 mg PO BID 04/11/23 04/11/23 release trazodone 150 mg tablet 150 mg PO HS 04/11/23 04/11/23 Previous Rx's Medication Instructions Recorded ondansetron HCl 4 mg tablet 4 mg PO Q8H PRN nausea and 04/11/23 vomiting 3 days #9 tabs <Malik Cisneros MD - Last Filed: 04/11/23 07:30> Allergies/adverse reactions: Allergies Allergy/AdvReac Type Severity Reaction Status Date / Time amoxicillin Allergy Intermediate Hives Verified 03/09/23 17:13 metoclopramide [From Reglan] Allergy Mild anxiety, Verified 03/09/23 17:13 skin is crawling Penicillins Allergy Mild Hives Verified 03/09/23 17:13 prochlorperazine Allergy Mild anxiety, Verified 03/09/23 17:13 [From Compazine] skin crawling NSAIDS (Non-Steroidal Allergy Verified 03/09/23 17:13 Anti-Inflamma <Malik Cisneros MD - Last Filed: 04/11/23 07:30> Review of Systems Status of ROS: Reports: 10 or more systems reviewed and unremarkable except as noted in History and below <Malik Cisneros MD - Last Filed: 04/11/23 07:30> [facility] Medical History: Medical History Abdominal pain ?R10.9 - Unspecified abdominal pain (ICD-10) Herpes zoster ?B02.9 - Zoster without complications (ICD-10) Spell of altered consciousness ?R40.4 - Transient alteration of awareness (ICD-10) Malnutrition ?E46 - Unspecified protein-calorie malnutrition (ICD-10) History of gastrostomy tube placement Controlled substance agreement signed ?Z79.899 - Other penitentiary (current) drug therapy (ICD-10) Hematoma of rectus sheath ?S30.1XXA - Contusion of abdominal wall, initial encounter (ICD-10) PTSD (post-traumatic stress disorder) ?F43.10 - Post-traumatic stress disorder, unspecified (ICD-10) ADHD ?F90.9 - Attention-deficit hyperactivity disorder, unspecified type (ICD-10) Major depressive disorder ?F32.9 - Major depressive disorder, single episode, unspecified (ICD-10) Deep vein thrombophlebitis of arm ?I80.8 - Phlebitis and thrombophlebitis of other sites (ICD-10) Transaminitis ?R74.01 - Elevation of levels of liver transaminase levels (ICD-10) Asthma ?J45.909 - Unspecified asthma, uncomplicated (ICD-10) Lung nodule ?R91.1 - Solitary pulmonary nodule (ICD-10) Fatty liver ?K76.0 - Fatty (change of) liver, not elsewhere classified (ICD-10) Hyperlipidemia ?E78.5 - Hyperlipidemia, unspecified (ICD-10) 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 (ICD-10) Migraine ?G43.909 - Migraine, unspecified, not intractable, without status migrainosus (ICD-10) Severe preeclampsia ?O14.10 - Severe pre-eclampsia, unspecified trimester (ICD-10) Pneumonia ?J18.9 - Pneumonia, unspecified organism (ICD-10) Cholecystectomy planned Kidney stones ?N20.0 - Calculus of kidney (ICD-10) Urinary frequency ?R35.0 - Frequency of micturition (ICD-10) Nerve pain ?M79.2 - Neuralgia and neuritis, unspecified (ICD-10) Cold sore ?B00.1 - Herpesviral vesicular dermatitis (ICD-10) <Malik Cisneros MD - Last Filed: 04/11/23 07:30> Surgical History: Surgical History Hx of cholecystectomy ?Z90.49 - Acquired absence of other specified parts of digestive tract (ICD-10) Gastric bypass status for obesity ?Z98.84 - Bariatric surgery status (ICD-10) <Malik Cisneros MD - Last Filed: 04/11/23 07:30> Family History: Family History Maternal Grandmother Breast cancer High blood pressure Mother Breast cancer Skin cancer Paternal Grandmother Lung cancer Aunt Breast cancer Daughter Congenital heart disease Maternal Grandfather Myocardial infarction High cholesterol High blood pressure Stroke Father High cholesterol High blood pressure Paternal Grandfather High cholesterol High blood pressure <Malik Cisneros MD - Last Filed: 04/11/23 07:30> Social History: Social History Narrative: . Two young daughters. Denies tobacco use or illicit drug use. 1 glass of wine per week, most recent drink was the night before admission. What is your current living situation?: I presently have a place to live Problems where you live: no known problems Problems where you live details: none In the past 12 months, utilities in danger of being shut off: no In past 12 months, lack of transportation kept you from medical appts, meetings, work, or getting things needed for daily living: no In the past 12 mos, have been you worried that your food would run out before you had money to buy more?: never true In the past 12 mos, the food you bought just didn't last and you didn't have money to buy more?: never true Highest level of school completed/degree received: Master's degree Smoking Status: Former smoker What tobacco products do you use: cigarettes Smoking quit date/years: <= 15 years ago Do you use any of these nicotine containing products: None Second hand tobacco smoke exposure: No How often do you have a drink containing alcohol: monthly or less How many standard drinks containing alcohol do you have on a typical day: 1 or 2 How often do you have six or more drinks on one occasion: Never AUDIT-C Alcohol total score: 1 Non-prescribed substance use: denies use Caffeine: Yes (coffee) How often does anyone, including family, friends and others, physically hurt you: never How often does anyone, including family, friends and others, insult or talk down to you: never How often does anyone, including family, friends and others, threaten you with harm: never How often does anyone, including family, friends and others, scream or curse at you: never service: No <Malik Cisneros MD - Last Filed: 04/11/23 07:30> Exam Narrative: Exam Narrative: EXAM GENERAL: Patient appears very emotional. EYES: No scleral icterus. LYMPH: No supraclavicular or cervical lymphadenopathy. SKIN: Visible skin seen during exam normal or with benign process only. EXT: No dependent lower extremity pedal edema. HEART: Regular rate and rhythm with no murmurs, rubs, or gallops. LUNGS: Clear to auscultation bilaterally with no crackles or wheezes. ABD: Soft, non tender, non distended. Previous incisions are healing well. There is some scattered ecchymoses in the lower abdomen. PSYCH: Good eye contact, speech is not pressured. <Malik Cisneros MD - Last Filed: 04/11/23 07:30> Const: Vital Signs, click to edit/add: Vital Signs - 24 hr 04/11/23 07:03 04/11/23 07:25 04/11/23 07:30 Temperature 98.1 F Pulse Rate 83 77 Pulse Rate [Pulse Oximeter] 88 Respiratory Rate 20 Blood Pressure Blood Pressure [Ri ght Upper Arm] 162/113 H Pulse Oximetry 100 100 99 Oxygen Delivery Me thod Room Air 04/11/23 07:45 04/11/23 08:00 04/11/23 08:01 Temperature Pulse Rate 80 78 79 Pulse Rate [Pulse Oximeter] Respiratory Rate Blood Pressure 147/107 H Blood Pressure [Ri ght Upper Arm] Pulse Oximetry 100 100 100 Oxygen Delivery Me thod 04/11/23 08:28 04/11/23 08:30 04/11/23 08:31 Temperature Pulse Rate 79 81 83 Pulse Rate [Pulse Oximeter] Respiratory Rate Blood Pressure 151/98 H Blood Pressure [Ri ght Upper Arm] Pulse Oximetry 100 100 100 Oxygen Delivery Me thod 04/11/23 08:45 04/11/23 09:00 04/11/23 09:01 Temperature Pulse Rate 84 87 88 Pulse Rate [Pulse Oximeter] Respiratory Rate Blood Pressure 152/100 H Blood Pressure [Ri ght Upper Arm] Pulse Oximetry 100 100 100 Oxygen Delivery Me thod 04/11/23 09:15 04/11/23 09:30 04/11/23 09:31 Temperature Pulse Rate 86 89 97 Pulse Rate [Pulse Oximeter] Respiratory Rate Blood Pressure 139/114 H Blood Pressure [Ri ght Upper Arm] Pulse Oximetry 100 100 100 Oxygen Delivery Me thod 04/11/23 09:45 Temperature Pulse Rate 91 Pulse Rate [Pulse Oximeter] Respiratory Rate Blood Pressure Blood Pressure [Ri ght Upper Arm] Pulse Oximetry 100 Oxygen Delivery Me thod <Malik Cisneros MD - Last Filed: 04/11/23 07:30> Vital Signs, click to edit/add: Vital Signs - 24 hr 04/11/23 07:03 04/11/23 07:25 04/11/23 07:30 Temperature 98.1 F Pulse Rate 83 77 Pulse Rate [Pulse Oximeter] 88 Respiratory Rate 20 Blood Pressure Blood Pressure [Ri ght Upper Arm] 162/113 H Pulse Oximetry 100 100 99 Oxygen Delivery Me thod Room Air 04/11/23 07:45 04/11/23 08:00 04/11/23 08:01 Temperature Pulse Rate 80 78 79 Pulse Rate [Pulse Oximeter] Respiratory Rate Blood Pressure 147/107 H Blood Pressure [Ri ght Upper Arm] Pulse Oximetry 100 100 100 Oxygen Delivery Me thod 04/11/23 08:28 04/11/23 08:30 04/11/23 08:31 Temperature Pulse Rate 79 81 83 Pulse Rate [Pulse Oximeter] Respiratory Rate Blood Pressure 151/98 H Blood Pressure [Ri ght Upper Arm] Pulse Oximetry 100 100 100 Oxygen Delivery Me thod 04/11/23 08:45 04/11/23 09:00 04/11/23 09:01 Temperature Pulse Rate 84 87 88 Pulse Rate [Pulse Oximeter] Respiratory Rate Blood Pressure 152/100 H Blood Pressure [Ri ght Upper Arm] Pulse Oximetry 100 100 100 Oxygen Delivery Me thod 04/11/23 09:15 04/11/23 09:30 04/11/23 09:31 Temperature Pulse Rate 86 89 97 Pulse Rate [Pulse Oximeter] Respiratory Rate Blood Pressure 139/114 H Blood Pressure [Ri ght Upper Arm] Pulse Oximetry 100 100 100 Oxygen Delivery Me thod 04/11/23 09:45 Temperature Pulse Rate 91 Pulse Rate [Pulse Oximeter] Respiratory Rate Blood Pressure Blood Pressure [Ri ght Upper Arm] Pulse Oximetry 100 Oxygen Delivery Me thod <Anoop Curtis MD - Last Filed: 04/11/23 11:05> Course Course ED Course: Patient seen examined. Normal saline Zofran given. CBC CMP amylase UA CT abdomen pelvis lactate ordered. <Malik Cisneros MD - Last Filed: 04/11/23 07:30> Vital Signs Vital signs: Initial Vital Signs Temperature 98.1 F 04/11/23 07:03 Temperature Source Temporal Artery Scan 04/11/23 07:03 Pulse Rate 88 04/11/23 07:03 Pulse Rhythm Regular 04/11/23 07:03 Respiratory Rate 20 04/11/23 07:03 Blood Pressure 162/113 H 04/11/23 07:03 Blood Pressure Mean 129 H 04/11/23 07:03 Blood Pressure Position Supine 04/11/23 07:03 Pulse Oximetry 100 04/11/23 07:03 Oxygen Delivery Method Room Air 04/11/23 07:03 Vital Signs Temperature 98.1 F 04/11/23 07:03 Pulse Rate 88 04/11/23 07:03 Respiratory Rate 20 04/11/23 07:03 Blood Pressure 162/113 H 04/11/23 07:03 Pulse Oximetry 100 04/11/23 07:03 Oxygen Delivery Method Room Air 04/11/23 07:03 Temperature 98.1 F 04/11/23 07:03 Pulse Rate 91 04/11/23 09:45 Respiratory Rate 20 04/11/23 07:03 Blood Pressure 139/114 H 04/11/23 09:31 Pulse Oximetry 100 04/11/23 09:45 Oxygen Delivery Method Room Air 04/11/23 07:03 <Malik Cisneros MD - Last Filed: 04/11/23 07:30> Initial Vital Signs Temperature 98.1 F 04/11/23 07:03 Temperature Source Temporal Artery Scan 04/11/23 07:03 Pulse Rate 88 04/11/23 07:03 Pulse Rhythm Regular 04/11/23 07:03 Respiratory Rate 20 04/11/23 07:03 Blood Pressure 162/113 H 04/11/23 07:03 Blood Pressure Mean 129 H 04/11/23 07:03 Blood Pressure Position Supine 04/11/23 07:03 Pulse Oximetry 100 04/11/23 07:03 Oxygen Delivery Method Room Air 04/11/23 07:03 Vital Signs Temperature 98.1 F 04/11/23 07:03 Pulse Rate 88 04/11/23 07:03 Respiratory Rate 20 04/11/23 07:03 Blood Pressure 162/113 H 04/11/23 07:03 Pulse Oximetry 100 04/11/23 07:03 Oxygen Delivery Method Room Air 04/11/23 07:03 Temperature 98.1 F 04/11/23 07:03 Pulse Rate 91 04/11/23 09:45 Respiratory Rate 20 04/11/23 07:03 Blood Pressure 139/114 H 04/11/23 09:31 Pulse Oximetry 100 04/11/23 09:45 Oxygen Delivery Method Room Air 04/11/23 07:03 <Anoop Curtis MD - Last Filed: 04/11/23 11:05> Medical Decision Making MDM Narrative Medical decision making narrative: Patient feels better, she feels that her nausea is improved, she still has some mild right-sided pain will give her 2 mg of morphine into more if needed. I think be reasonable heard as some Zofran at home. Her white count is normal hemoglobin normal your profile is pending. Urinalysis shows some blood. This would be consistent with her prior surgery. Given her improvement I think she can probably go home, Zofran as needed, light activity, update her OBGYN and couple of days, return to ED sooner problems or concerns. Further imaging such as CT scanning should she fail to improve her have recurrent symptoms. Addendum: The patient's liver function tests returned quite elevated, she does seem a little bit better, but given her presentation and her elevated liver function test, it seems further workup and observation might be a important to rule out acute hepatitis, other intra-abdominal pathology. Patient after discussion with hospitalist will be put in the hospital for observation, IV fluids, repeat liver function test, probable sent out hepatitis studies. Possible reimaging. Patient was comfortable plan <Anoop Curtis MD - Last Filed: 04/11/23 11:05> Lab Data Labs: Lab Results 04/11/23 04/11/23 04/11/23 Range/Units 07:45 08:11 08:49 WBC 3.96 L (4.50-11.00) K/uL RBC 4.31 (4.00-5.20) m/uL Hgb 12.5 (12.0-16.0) gm/dL Hct 37.7 (33.0-51.0) % MCV 88 (80-100) fL MCH 29 (26-34) pg MCHC 33 (32-36) gm/dL RDW Coeff of Vega 13.5 (11.5-15.5) % Plt Count 329 (140-440) K/uL Neut % (Auto) 47.1 (42.0-72.0) % Lymph % (Auto) 40.7 (20-44) % [place]ferro % (Auto) 7.1 (0.0-11.0) % Eos % (Auto) 4.3 (0.0-7.0) % Baso % (Auto) 0.5 (0.0-3.0) % Neut # (Auto) 1.90 (1.7-7.0) K/uL Lymph # (Auto) 1.60 (0.90-2.90) K/uL [place]ferro # (Auto) 0.30 (0.00-0.90) K/UL Eos # (Auto) 0.20 (0.00-0.50) K/uL Baso # (Auto) 0.00 (0.00-0.30) K/uL Abs Immat Gran (auto) 0.00 (0.00-0.30) K/uL Imm/Tot Granulo (auto) 0.3 % Sodium 137 (135-149) mmol/L Potassium 3.7 (3.6-5.1) mmol/L Chloride 102 (96-114) mmol/L Carbon Dioxide 27 (20-32) mmol/L Anion Gap 8 (7-15) mEq/L BUN 8 (5-24) mg/dL Creatinine 0.5 (0.5-1.5) mg/dL Estimated Creat Clear 126.57 Estimated GFR 127 ml/min Glucose 71 (60-115) mg/dL Lactate 0.9 (0.5-1.9) mmol/L Calcium 9.1 (8.4-10.6) mg/dL Total Bilirubin 0.3 (0.1-1.5) mg/dL AST 493 H (12-35) U/L ALT 234 H (4-35) U/L Alkaline Phosphatase 195 H (40-150) U/L Total Protein 7.7 (6.0-8.3) g/dL Albumin 4.5 (3.3-5.0) g/dL Amylase 58 (18-89) U/L Urine Color Yellow (Yellow) Urine Appearance Clear (Clear) Urine pH 7.5 (5.0-8.5) Ur Specific Mulberry 1.015 (1.000-1.030) Urine Protein Negative (Negative) Urine Glucose (UA) Negative (Negative) Urine Ketones Negative (Negative) Urine Blood 3+ A (Negative) Urine Nitrite Negative (Negative) Urine Bilirubin Negative (Negative) Urine Urobilinogen 0.2 (0.2-1.0) Ur Leukocyte Esterase Negative (Negative) Urine RBC 5-10 A (0-2) Urine WBC 0-2 (0-5) Ur Squamous Epith Cells Few (None-Few) Urine Bacteria None (None) Salicylates < 1.0 L (1.0-10) mg/dL Urine Opiates Screen Negative (Negative) Ur Oxycodone Screen POSITIVE A (Negative) Urine Methadone Screen Negative (Negative) Ur Propoxyphene Screen Not Reportable Acetaminophen < 10.0 L (10.0-30.0) ug/mL Ur Barbiturates Screen Negative (Negative) U Tricyclic Antidepress Negative (Negative) Ur Phencyclidine Scrn Negative (Negative) Ur Amphetamines Screen POSITIVE A (Negative) U Methamphetamines Scrn Negative (Negative) U Benzodiazepines Scrn POSITIVE A (Negative) Urine Cocaine Screen Negative (Negative) U Marijuana (THC) Screen Negative (Negative) Ur Drug Screen Comment See Note Ethyl Alcohol < 0.01 L (0.01-0.03) % Lab Acknowledgement Test Added 04/11/23 Range/Units 08:54 WBC (4.50-11.00) K/uL RBC (4.00-5.20) m/uL Hgb (12.0-16.0) gm/dL Hct (33.0-51.0) % MCV (80-100) fL MCH (26-34) pg MCHC (32-36) gm/dL RDW Coeff of Vega (11.5-15.5) % Plt Count (140-440) K/uL Neut % (Auto) (42.0-72.0) % Lymph % (Auto) (20-44) % [place]ferro % (Auto) (0.0-11.0) % Eos % (Auto) (0.0-7.0) % Baso % (Auto) (0.0-3.0) % Neut # (Auto) (1.7-7.0) K/uL Lymph # (Auto) (0.90-2.90) K/uL [place]ro # (Auto) (0.00-0.90) K/UL Eos # (Auto) (0.00-0.50) K/uL Baso # (Auto) (0.00-0.30) K/uL Abs Immat Gran (auto) (0.00-0.30) K/uL Imm/Tot Granulo (auto) % Sodium (135-149) mmol/L Potassium (3.6-5.1) mmol/L Chloride (96-114) mmol/L Carbon Dioxide (20-32) mmol/L Anion Gap (7-15) mEq/L BUN (5-24) mg/dL Creatinine (0.5-1.5) mg/dL Estimated Creat Clear Estimated GFR ml/min Glucose (60-115) mg/dL Lactate (0.5-1.9) mmol/L Calcium (8.4-10.6) mg/dL Total Bilirubin (0.1-1.5) mg/dL AST (12-35) U/L ALT (4-35) U/L Alkaline Phosphatase (40-150) U/L Total Protein (6.0-8.3) g/dL Albumin (3.3-5.0) g/dL Amylase (18-89) U/L Urine Color (Yellow) Urine Appearance (Clear) Urine pH (5.0-8.5) Ur Specific [place] (1.000-1.030) Urine Protein (Negative) Urine Glucose (UA) (Negative) Urine Ketones (Negative) Urine Blood (Negative) Urine Nitrite (Negative) Urine Bilirubin (Negative) Urine Urobilinogen (0.2-1.0) Ur Leukocyte Esterase (Negative) Urine RBC (0-2) Urine WBC (0-5) Ur Squamous Epith Cells (None-Few) Urine Bacteria (None) Salicylates (1.0-10) mg/dL Urine Opiates Screen (Negative) Ur Oxycodone Screen (Negative) Urine Methadone Screen (Negative) Ur Propoxyphene Screen Acetaminophen (10.0-30.0) ug/mL Ur Barbiturates Screen (Negative) U Tricyclic Antidepress (Negative) Ur Phencyclidine Scrn (Negative) Ur Amphetamines Screen (Negative) U Methamphetamines Scrn (Negative) U Benzodiazepines Scrn (Negative) Urine Cocaine Screen (Negative) U Marijuana (THC) Screen (Negative) Ur Drug Screen Comment Ethyl Alcohol (0.01-0.03) % Lab Acknowledgement Test Added <Malik Cisneros MD - Last Filed: 04/11/23 07:30> Lab Results 04/11/23 04/11/23 04/11/23 Range/Units 07:45 08:11 08:49 WBC 3.96 L (4.50-11.00) K/uL RBC 4.31 (4.00-5.20) m/uL Hgb 12.5 (12.0-16.0) gm/dL Hct 37.7 (33.0-51.0) % MCV 88 (80-100) fL MCH 29 (26-34) pg MCHC 33 (32-36) gm/dL RDW Coeff of Vega 13.5 (11.5-15.5) % Plt Count 329 (140-440) K/uL Neut % (Auto) 47.1 (42.0-72.0) % Lymph % (Auto) 40.7 (20-44) % [place]ro % (Auto) 7.1 (0.0-11.0) % Eos % (Auto) 4.3 (0.0-7.0) % Baso % (Auto) 0.5 (0.0-3.0) % Neut # (Auto) 1.90 (1.7-7.0) K/uL Lymph # (Auto) 1.60 (0.90-2.90) K/uL [place]ferro # (Auto) 0.30 (0.00-0.90) K/UL Eos # (Auto) 0.20 (0.00-0.50) K/uL Baso # (Auto) 0.00 (0.00-0.30) K/uL Abs Immat Gran (auto) 0.00 (0.00-0.30) K/uL Imm/Tot Granulo (auto) 0.3 % Sodium 137 (135-149) mmol/L Potassium 3.7 (3.6-5.1) mmol/L Chloride 102 (96-114) mmol/L Carbon Dioxide 27 (20-32) mmol/L Anion Gap 8 (7-15) mEq/L BUN 8 (5-24) mg/dL Creatinine 0.5 (0.5-1.5) mg/dL Estimated Creat Clear 126.57 Estimated GFR 127 ml/min Glucose 71 (60-115) mg/dL Lactate 0.9 (0.5-1.9) mmol/L Calcium 9.1 (8.4-10.6) mg/dL Total Bilirubin 0.3 (0.1-1.5) mg/dL AST 493 H (12-35) U/L ALT 234 H (4-35) U/L Alkaline Phosphatase 195 H (40-150) U/L Total Protein 7.7 (6.0-8.3) g/dL Albumin 4.5 (3.3-5.0) g/dL Amylase 58 (18-89) U/L Urine Color Yellow (Yellow) Urine Appearance Clear (Clear) Urine pH 7.5 (5.0-8.5) Ur Specific [place] 1.015 (1.000-1.030) Urine Protein Negative (Negative) Urine Glucose (UA) Negative (Negative) Urine Ketones Negative (Negative) Urine Blood 3+ A (Negative) Urine Nitrite Negative (Negative) Urine Bilirubin Negative (Negative) Urine Urobilinogen 0.2 (0.2-1.0) Ur Leukocyte Esterase Negative (Negative) Urine RBC 5-10 A (0-2) Urine WBC 0-2 (0-5) Ur Squamous Epith Cells Few (None-Few) Urine Bacteria None (None) Salicylates < 1.0 L (1.0-10) mg/dL Urine Opiates Screen Negative (Negative) Ur Oxycodone Screen POSITIVE A (Negative) Urine Methadone Screen Negative (Negative) Ur Propoxyphene Screen Not Reportable Acetaminophen < 10.0 L (10.0-30.0) ug/mL Ur Barbiturates Screen Negative (Negative) U Tricyclic Antidepress Negative (Negative) Ur Phencyclidine Scrn Negative (Negative) Ur Amphetamines Screen POSITIVE A (Negative) U Methamphetamines Scrn Negative (Negative) U Benzodiazepines Scrn POSITIVE A (Negative) Urine Cocaine Screen Negative (Negative) U Marijuana (THC) Screen Negative (Negative) Ur Drug Screen Comment See Note Ethyl Alcohol < 0.01 L (0.01-0.03) % Lab Acknowledgement Test Added 04/11/23 Range/Units 08:54 WBC (4.50-11.00) K/uL RBC (4.00-5.20) m/uL Hgb (12.0-16.0) gm/dL Hct (33.0-51.0) % MCV (80-100) fL MCH (26-34) pg MCHC (32-36) gm/dL RDW Coeff of Vega (11.5-15.5) % Plt Count (140-440) K/uL Neut % (Auto) (42.0-72.0) % Lymph % (Auto) (20-44) % [place]ferro % (Auto) (0.0-11.0) % Eos % (Auto) (0.0-7.0) % Baso % (Auto) (0.0-3.0) % Neut # (Auto) (1.7-7.0) K/uL Lymph # (Auto) (0.90-2.90) K/uL [place] # (Auto) (0.00-0.90) K/UL Eos # (Auto) (0.00-0.50) K/uL Baso # (Auto) (0.00-0.30) K/uL Abs Immat Gran (auto) (0.00-0.30) K/uL Imm/Tot Granulo (auto) % Sodium (135-149) mmol/L Potassium (3.6-5.1) mmol/L Chloride (96-114) mmol/L Carbon Dioxide (20-32) mmol/L Anion Gap (7-15) mEq/L BUN (5-24) mg/dL Creatinine (0.5-1.5) mg/dL Estimated Creat Clear Estimated GFR ml/min Glucose (60-115) mg/dL Lactate (0.5-1.9) mmol/L Calcium (8.4-10.6) mg/dL Total Bilirubin (0.1-1.5) mg/dL AST (12-35) U/L ALT (4-35) U/L Alkaline Phosphatase (40-150) U/L Total Protein (6.0-8.3) g/dL Albumin (3.3-5.0) g/dL Amylase (18-89) U/L Urine Color (Yellow) Urine Appearance (Clear) Urine pH (5.0-8.5) Ur Specific [place] (1.000-1.030) Urine Protein (Negative) Urine Glucose (UA) (Negative) Urine Ketones (Negative) Urine Blood (Negative) Urine Nitrite (Negative) Urine Bilirubin (Negative) Urine Urobilinogen (0.2-1.0) Ur Leukocyte Esterase (Negative) Urine RBC (0-2) Urine WBC (0-5) Ur Squamous Epith Cells (None-Few) Urine Bacteria (None) Salicylates (1.0-10) mg/dL Urine Opiates Screen (Negative) Ur Oxycodone Screen (Negative) Urine Methadone Screen (Negative) Ur Propoxyphene Screen Acetaminophen (10.0-30.0) ug/mL Ur Barbiturates Screen (Negative) U Tricyclic Antidepress (Negative) Ur Phencyclidine Scrn (Negative) Ur Amphetamines Screen (Negative) U Methamphetamines Scrn (Negative) U Benzodiazepines Scrn (Negative) Urine Cocaine Screen (Negative) U Marijuana (THC) Screen (Negative) Ur Drug Screen Comment Ethyl Alcohol (0.01-0.03) % Lab Acknowledgement Test Added <Anoop Curtis MD - Last Filed: 04/11/23 11:05> Discharge Plan Discharge Clinical Impression: Post-op pain, Transaminitis <Malik Cisneros MD - Last Filed: 04/11/23 07:30> Patient Disposition: Home w/ Parent or Adult <Malik Cisneros MD - Last Filed: 04/11/23 07:30> Condition: Improved <Malik Cisneros MD - Last Filed: 04/11/23 07:30> Activity Level: Light activity <Malik Cisneros MD - Last Filed: 04/11/23 07:30> Light activity <Anoop Curtis MD - Last Filed: 04/11/23 11:05> Discharge Diet: Full Liquid <Malik Cisneros MD - Last Filed: 04/11/23 07:30> Full Liquid <Anoop Curtis MD - Last Filed: 04/11/23 11:05> Diet Detail: Advanced diet as tolerated <Malik Cisneros MD - Last Filed: 04/11/23 07:30> Advanced diet as tolerated <Anoop Curtis MD - Last Filed: 04/11/23 11:05>
[2023-04-11] MEDS: 0.9 % SODIUM CHLORIDE 1000 ml 1,000 ML IV (07:46)
[2023-04-11] MEDS: ONDANSETRON 2 MG/ML inj 4 MG IVP ×2 (07:52→13:00)
[2023-04-11 07:53] LABS: Lactate* 0.9 mmol/L (0.5-1.9)
[2023-04-11 07:55] LABS: Basophils Percent Auto 0.5 % (0.0-3.0); Eosinophils Percent Auto 4.3 % (0.0-7.0); Hematocrit 37.7 % (33.0-51.0); Hemoglobin* 12.5 gm/dL (12.0-16.0); Immature Granulocytes Pct Auto 0.3 %; Lymphocytes Percent Auto 40.7 % (20-44); Mean Corpuscular HGB Conc 33 gm/dL (32-36); Mean Corpuscular Hemoglobin 29 pg (26-34); Mean Corpuscular Volume 88 fL (80-100); Monocytes Percent Auto 7.1 % (0.0-11.0); Neutrophils Percent Auto 47.1 % (42.0-72.0); Platelet Count* 329 K/uL (140-440); RDW Coefficient of Variation % 13.5 % (11.5-15.5); Red Blood Count 4.31 m/uL (4.00-5.20); White Blood Count* 3.96 K/uL (4.50-11.00)
--- OUTSIDE RECORDS SUMMARY | 2023-04-11 08:01 | XMS_ITS | Continuity of Care Document ---
Author Name Unknown Organization [facility] Address [address] [address] [place] [address] Phone Care Team Providers Care Senior Quality Methods Specialist Name Role Phone No Information Unavailable Unavailable [...] Diagnoses Date Provider Providers Copied on Encounter [facility] [place], [address] [address], [place], [id number], [place] tel:[phone] No Information 3 No Information [facility] [place], [address] [address], [place], [id number], [place] tel:[phone] [facility] No Information 2 Julio Fields. [address] [facility], [facility], [place], [place], [address], [place]. tel:[phone] [facility] [place], [address] [address], [place], [id number], [place] tel:[phone] [facility] GI Symptoms or Concerns (chief complaint) Unspecified abdominal painConstipat ion, unspecifiedUn specified abdominal pain 2 Joel Ramirez. [address] [facility], [facility] [address], [place], [id number], [place]. tel:[phone] Referring Provider: Referral Self. [facility], [address] [address], [place], [id number], [place] tel:[phone] [facility] GI Symptoms or Concerns (chief complaint) Abdominal pain in femaleBariatr ic surgery statusUnspeci fied abdominal pain 2 Joel Ramirez. [address] [facility], [address], [id number], [place]. tel:[phone] Referring Provider: Referral Self. [facility], [address] [address], [place], [address], [place] tel:[phone] [facility] Disease of digestive system, unspecified 2 Artur BUNN Joan. [address] [facility], [facility] [address], [place], [address], [place]. tel:[phone] Referring Provider: Lindy Richter [facility], [address] [place] [address], [address]. tel:[phone] [facility], [address] [address], [place], [address], [place] tel:[phone] No Information 2 No Information Established Level 5 [facility], [address] [address], [place], [id number], [place] tel:[phone] [facility] GI Symptoms or Concerns (chief complaint) stricture (chief complaint) Gastric anastomotic strictureChro niles constipationH ematocheziaNa useaUpper abdominal pain 2 Artur BUNN Joan. [address] [facility], [facility] [address], [place], [id number], [place]. tel:[phone] Referring Provider: Referral Self. [facility], [address] [address], [place], [address], [place] tel:[phone] [facility] No Information 2 Artur Cottera. [address] [facility], [address], [id number], [place]. tel:[phone] Init Hosp-da E&m Low Severity [facility], [address] [address], [place], [address], [place] tel:[phone] [facility] No Information 2 Nayeli Mcgraw. [address] [facility], [address], [id number], [place]. tel:[phone] Referring Provider: Lindy Richter [facility], [address] [place] [address], [address]. tel:[phone] Subsqt Hosp-da E&m Minr Compl [facility], [address] [address], [place], [address], [place] tel:[phone] [facility] No Information 1 Aldo Huynh. [address], [id number], [place]. tel:[phone] Referring Provider: Lino Carlson MD , [address], [address]. [phone] [facility], [address] [address], [place], [address], [place] tel:[phone] [facility] No Information 1 Sandra Fernandez. [address] [facility], [address], [id number], [place]. tel:[phone] Referring Provider: Lindy Richter [employer], [address] [place] [address], [address]. tel:[phone] Init Hosp-da E&m Mod Severity [facility], [address] [address], [place], [address], [place] tel:[phone] [facility] No Information 1 Phan Ortega. [address] [facility], [facility] [address], [place], [id number], [place]. tel:[phone] Referring Provider: Ernesto Perez, [address] [facility] [address], [place], [address]. [phone] Subsqt Hosp-da E&m Minr Compl [facility], [address] [address], [place], [id number], [place] tel:[phone] [facility] No Information 1 Hai Liao. [address] [place] [address], [facility] [address], [place], [id number], [place]. tel:[phone] Referring Provider: Yanni Islas, [address] [place] [address], [place], [address]. [phone] [facility], [address] [address], [place], [address], [place] tel:[phone] [facility] No Information 1 Flory Bueno. [address] [place] [address], [facility] [address], [place], [address], [place]. tel:[phone] Referring Provider: Myles Dalton, [facility] [address], [place], [address]. tel:[phone] Init Hosp-da E&m Mod Severity [facility], [address] [address], [place], [address], [place] tel:[phone] [facility] No Information 1 Ciera Zapien. [address] [facility], [facility] [address], [place], [address], [place]. tel:[phone] Referring Provider: Curry Zhang, [address] [facility] [address], [place], [address]. tel:[phone] [facility], [address] [address], [place], [id number], [place] tel:[phone] [facility] Anastomotic stricture of gastrojejunos tomyOth postprocedura l complications and disorders of dgstv sys 1 Flory Bueno. [address] [facility], [facility] [address], [place], [id number], [place]. tel:[phone] Referring Provider: Lindy Richter [facility], [address], [address]. tel:[phone] [facility], [address] [address], [place], [address], [place] tel:[phone] [facility] No Information 1 Hakeem DREW Courtney. [address] [facility], [address], [id number], [place]. tel:[phone] Referring Provider: Referral Self. [facility], [address] [address], [place], [address], [place] tel:[phone] [facility] No Information 1 Esdras Huddleston. [address] [facility], [facility] [address], [place], [address], [place]. tel:[phone] Referring Provider: Danny Zhang, [address] [place] [address], [address]. tel:[phone] [facility], [address] [address], [place], [address], [place] tel:[phone] [facility] No Information 1 Duc Llamas. [address] [facility], [facility] [address], [place], [address], [place]. tel:[phone] Referring Provider: Danny Zhang, [address] [place] [address], [address]. tel:[phone] In Hosp-da E&m Mod Severity [facility], [address] [address], [place], [address], [place] tel:[phone] [facility] No Information 1 Mariann Ordonez. [address] [facility], [facility] [address], [place], [address], [place]. [phone] Referring Provider: Danny Zhang, [address], [address]. [phone] [facility], [address] [address], [place], [address], [place] tel:[phone] [facility] Anastomotic stricture of gastrojejunos miracle 1 Flory Bueno. [address] [place] [address], [address], [id number], [place]. tel:[phone] [facility], [address] [address], [place], [address], [place] tel:[phone] [facility] Anastomotic stricture of gastrojejunos miracle 1 Flory Bueno. [address] [place] [address], [facility] [address], [place], [address], [place]. tel:[phone] [facility], [address] [address], [place], [address], [place] tel:[phone] [facility] No Information 1 Flory Bueno. [address] [place] [address], [address], [id number], [place]. tel:[phone] Referring Provider: Myles Dalton, [address] [place] [address], [address]. tel:[phone] [facility], [address] [address], [place], [address], [place] tel:[phone] [facility] No Information 1 Flory Bueno. [address] [place] [address], [facility] [address], [place], [address], [place]. tel:[phone] Subsqt Hosp-da E&m Minr Compl [facility], [address] [address], [place], [address], [place] tel:[phone] [facility] No Information 1 Artemio Blackwood. [facility], [address], [id number], [place]. tel:[phone] Referring Provider: Maria R Ellis MD, [address] [place], [address]. tel:[phone] Subsqt Hosp-da E&m Minr Compl [facility], [address] [address], [place], [place], [address], [place] tel:[phone] [facility] No Information 1 Hai Liao. [address] [place] [address], [id number], [place]. tel:[phone] Referring Provider: Yanni Islas, [address] [place] [address], [address]. tel:[phone] Init Hosp-da E&m Mod Severity [facility] [place] [facility], [address] [address], [place], [place], [address], [place] tel:[phone] [facility] No Information 1 Nayeli Mcgraw. [facility], [address], [id number], [place]. tel:[phone] Referring Provider: Maria R Ellis MD, [address] [place] [address], [place], [address]. tel:[phone] [facility], [address] [address], [place], [place], [address], [place] tel:[phone] Dina [facility] Hemorrhage of anus and rectumLower abdominal pain, unspecifiedIn ternal hemorrhoidsHe morrhage of anus and rectumLower abdominal pain, unspecifiedOt her hemorrhoids Nov-0 201 8 Franck Davalos. [address] [facility], [address], [id number], [place]. tel:[phone] Referring Provider: Referral Self. Offic/outpt E&m [facility] [address] [address], [place], [place], [address], [place] tel:[phone] [facility] GI Symptoms or Concerns (chief complaint) Lower abdominal painRectal bleedingDieta ry counseling and surveillance 8 Ema Case. [address] [facility], [facility] [address], [place], [place], [address], [place]. tel:[phone] Referring Provider: Tyler Miguel MD , [facility] [place], [address]. tel:[phone] Family History Family Member Type Diagnosis Age [...] bi-directional interface ; Source: Other Registry Novel [id number], injectable administered Note: [facility] bi-direct ional interface ; Source: Other Registry Payers Payer name Insurance type Covered constitution party ID Authoriza tion(s) No Information Social [...] bypass surgery done by Dr. Garsia at [place]. He performed an endoscopy with dilation of [...] surgery. She has tried a number of wney-daj-jhoshbh laxatives including MiraLax, mag citrate, and Colace, [...] if needed -Will send out samples of [place]-Pelvic Floor Evaluation-Follow up appointment after the above workup is complete Related to Gastric anastomotic stricture Colon Cancer Prevention Related to Lower abdominal pain, unspecified high fiber diet Related to Inter nal hemorrhoids Hemorrhoids Related to Inter nal hemorrhoids I will obtain inflam matory markers and [...]
[2023-04-11 08:07] LABS: Slide Review Reflex No
[2023-04-11 08:21] LABS: Appearance Urine Clear (Clear); Bilirubin Urine Negative (Negative); Blood Urine 3+ (Negative); Color Urine Yellow (Yellow); Glucose Urine Negative (Negative); Ketones Urine Negative (Negative); Leukocyte Esterase Urine Negative (Negative); Nitrite Urine Negative (Negative); Protein Urine Negative (Negative); Specific Gravity Urine 1.015 (1.000-1.030); Urobilinogen Urine 0.2 (0.2-1.0); pH Urine 7.5 (5.0-8.5)
[2023-04-11 08:24] LABS: Chloride* 102 mmol/L (96-114)
[2023-04-11 08:25] LABS: Albumin* 4.5 g/dL (3.3-5.0); Potassium* 3.7 mmol/L (3.6-5.1); Sodium* 137 mmol/L (135-149)
[2023-04-11] MEDS: MORPHINE 4 MG/ML INJ IVP (08:25)
[2023-04-11 08:27] LABS: Amylase* 58 U/L (18-89); Anion Gap 8 mEq/L (7-15); Carbon Dioxide* 27 mmol/L (20-32)
[2023-04-11 08:28] LABS: Alanine Aminotransferase* 234 U/L (4-35); Alkaline Phosphatase* 195 U/L (40-150); Aspartate Amino Transferase* 493 U/L (12-35); Bilirubin Total* 0.3 mg/dL (0.1-1.5); Blood Urea Nitrogen* 8 mg/dL (5-24); Calcium* 9.1 mg/dL (8.4-10.6); Creatinine* 0.5 mg/dL (0.5-1.5); Est. Creatinine Clearance* 126.57; Estimated Glomerular Filt Rate 127 ml/min; Glucose* 71 mg/dL (60-115); Total Protein* 7.7 g/dL (6.0-8.3)
[2023-04-11 08:44] LABS: Squamous Epithelial Cell Urine Few (None-Few); WBC Urine 0-2 (0-5)
--- NOTE | 2023-04-11 08:47 | ED.NURSE ---
[facility] aware of admission.
[2023-04-11 09:19] LABS: Amphetamine Screen Urine POSITIVE (Negative); Barbiturate Screen Urine Negative (Negative); Benzodiazepines Screen Urine POSITIVE (Negative); Cannabinoid Screen Urine Negative (Negative); Cocaine Screen Urine Negative (Negative); Methadone Screen Urine Negative (Negative); Methamphetamines Screen Urine Negative (Negative); Opiate Screen Urine Negative (Negative); Oxycodone Screen Urine POSITIVE (Negative); Phencyclidine Screen Urine Negative (Negative); Tricyclic Antidepressant Urine Negative (Negative)
[2023-04-11 09:23] LABS: Acetaminophen* < 10.0 ug/mL (10.0-30.0); Ethanol* < 0.01 % (0.01-0.03); Salicylate* < 1.0 mg/dL (1.0-10)
--- NOTE | 2023-04-11 10:20 | ED.NURSE ---
report to Alicia phillips will go to 258.
[2023-04-11] MEDS: HYDROmorphone 0.5 mg/0.5 ml inj 1 MG IVP (10:25)
--- OUTSIDE RECORDS SUMMARY | 2023-04-11 10:55 | XMS_ITS | Continuity of Care Document ---
Author Name Unknown Organization [facility] Address [address] [address] [place] [address] Phone Care Team Providers Care Acid Strength Inspector Name Role Phone No Information Unavailable Unavailable [...] Diagnoses Date Provider Providers Copied on Encounter [facility] [place], [address] [address], [place], [id number], [place] tel:[phone] No Information 3 No Information [facility] [place], [address] [address], [place], [id number], [place] tel:[phone] [facility] No Information 2 Julio Fields. [address] [facility], [facility] [address], [place], [place], [address], [place]. tel:[phone] [facility] [place], [address] [address], [place], [id number], [place] tel:[phone] [facility] GI Symptoms or Concerns (chief complaint) Unspecified abdominal painConstipat ion, unspecifiedUn specified abdominal pain 2 Joel Ramirez. [address] [facility], [facility] [address], [place], [id number], [place]. tel:[phone] Referring Provider: Referral Self. [facility], [address] [address], [place], [id number], [place] tel:[phone] [facility] GI Symptoms or Concerns (chief complaint) Abdominal pain in femaleBariatr ic surgery statusUnspeci fied abdominal pain 2 Joel Ramirez. [address] [facility], [address], [id number], [place]. tel:[phone] Referring Provider: Referral Self. [facility], [address] [address], [place], [address], [place] tel:[phone] [facility] Disease of digestive system, unspecified 2 Artur BUNN Joan. [address] [facility], [facility] [address], [place], [address], [place]. tel:[phone] Referring Provider: Lindy Richter [facility], [address] [place] [address], [address]. tel:[phone] [facility], [address] [address], [place], [address], [place] tel:[phone] No Information 2 No Information Established Level 5 [facility], [address] [address], [place], [id number], [place] tel:[phone] [facility] GI Symptoms or Concerns (chief complaint) stricture (chief complaint) Gastric anastomotic strictureChro niles constipationH ematocheziaNa useaUpper abdominal pain 2 Artur BUNN Joan. [address] [facility], [facility] [address], [place], [id number], [place]. tel:[phone] Referring Provider: Referral Self. [facility], [address] [address], [place], [address], [place] tel:[phone] [facility] No Information 2 Artur Cottera. [address] [facility], [address], [id number], [place]. tel:[phone] Init Hosp-da E&m Low Severity [facility], [address] [address], [place], [address], [place] tel:[phone] [facility] No Information 2 Nayeli Mcgraw. [address] [facility], [address], [id number], [place]. tel:[phone] Referring Provider: Lindy Richter LAB ASSISTANT, [address] [place] [address], [address]. tel:[phone] Subsqt Hosp-da E&m Minr Compl [facility], [address] [address], [place], [address], [place] tel:[phone] [facility] No Information 1 Aldo Huynh. [address], [id number], [place]. tel:[phone] Referring Provider: Lino Carlson MD , [address], [address]. [phone] [facility], [address] [address], [place], [address], [place] tel:[phone] [facility] No Information 1 Sandra Fernandez. [address] [facility], [address], [id number], [place]. tel:[phone] Referring Provider: Lindy Richter LAB ASSISTANT, [address] [place] [address], [address]. tel:[phone] Init Hosp-da E&m Mod Severity [facility], [address] [address], [place], [id number], [place] tel:[phone] [facility] No Information 1 Phan Ortega. [address] [facility], [facility] [address], [place], [id number], [place]. tel:[phone] Referring Provider: Ernesto Perez, [address] [facility] [address], [place], [address]. [phone] Subsqt Hosp-da E&m Minr Compl [facility], [address] [address], [place], [id number], [place] tel:[phone] [facility] No Information 1 Hai Liao. [address] [place] [address], [facility] [address], [place], [id number], [place]. tel:[phone] Referring Provider: Yanni Islas, [address] [place] [address], [place], [address]. [phone] [facility], [address] [address], [facility] [place], [id number], [place] tel:[phone] [facility] No Information 1 Flory Bueno. [address] [place] [address], [facility] [address], [place], [address], [place]. tel:[phone] Referring Provider: Myles Dalton, [facility] [address], [place], [address]. tel:[phone] Init Hosp-da E&m Mod Severity [facility], [address] [address], [place], [address], [place] tel:[phone] [facility] No Information 1 Ciera Zapien. [address] [facility], [facility] [address], [place], [address], [place]. tel:[phone] Referring Provider: Curry Zhang, [address] [facility] [address], [place], [address]. tel:[phone] [facility], [address] [address], [place], [address], [place] tel:[phone] [facility] Anastomotic stricture of gastrojejunos tomyOth postprocedura l complications and disorders of dgstv sys 1 Flory Bueno. [address] [facility], [facility] [address], [place], [address], [place]. tel:[phone] Referring Provider: Lindy Richter [facility], [address], [address]. tel:[phone] [facility], [address] [address], [place], [address], [place] tel:[phone] [facility] No Information 1 Hakeem DREW Courtney. [address] [facility], [address], [id number], [place]. tel:[phone] Referring Provider: Referral Self. [facility], [address] [address], [place], [address], [place] tel:[phone] [facility] No Information 1 Esdras Huddleston. [address] [facility], [facility] [address], [place], [id number], [place]. tel:[phone] Referring Provider: Danny Zhang, [address] [place] [address], [address]. tel:[phone] [facility], [address] [address], [place], [address], [place] tel:[phone] [facility] No Information 1 Duc Llamas. [address] [facility], [facility] [address], [place], [address], [place]. tel:[phone] Referring Provider: Danny Zhang, [address] [place] [address], [address]. tel:[phone] In Hosp-da E&m Mod Severity [facility], [address] [address], [place], [address], [place] tel:[phone] [facility] No Information 1 Mariann Ordonez. [address] [facility], [facility] [address], [place], [address], [place]. [phone] Referring Provider: Danny Zhang, [address], [address]. [phone] [facility], [address] [address], [place], [address], [place] tel:[phone] [facility] Anastomotic stricture of gastrojejunos miracle 1 Flory Bueno. [address] [place] [address], [address], [id number], [place]. tel:[phone] [facility], [address] [address], [place], [address], [place] tel:[phone] [facility] Anastomotic stricture of gastrojejunos miracle 1 Flory Bueno. [address] [place] [address], [facility] [address], [place], [id number], [place]. tel:[phone] [facility], [address] [address], [place], [address], [place] tel:[phone] [facility] No Information 1 Flory Bueno. [address] [place] [address], [address], [id number], [place]. tel:[phone] Referring Provider: Myles Dalton, [address] [place] [address], [address]. tel:[phone] [facility], [address] [address], [place], [id number], [place] tel:[phone] [facility] No Information 1 Flory Bueno. [address] [place] [address], [facility] [address], [place], [id number], [place]. tel:[phone] Subsqt Hosp-da E&m Minr Compl [facility], [address] [address], [place], [id number], [place] tel:[phone] [facility] No Information 1 Artemio Blackwood. [facility], [address], [id number], [place]. tel:[phone] Referring Provider: Maria R Ellis MD, [address] [place], [address]. tel:[phone] Subsqt Hosp-da E&m Minr Compl [facility], [address] [address], [place], [place], [address], [place] tel:[phone] [facility] No Information 1 Hai Liao. [address] [place] [address], [id number], [place]. tel:[phone] Referring Provider: Yanni Islas, [address] [place] [address], [address]. tel:[phone] Init Hosp-da E&m Mod Severity [facility], [address] [address], [place], [place], [address], [place] tel:[phone] [facility] No Information 1 Nayeli Mcgraw. [facility], [address], [id number], [place]. tel:[phone] Referring Provider: Maria R Ellis MD, [address] [place] [address], [place], [address]. tel:[phone] [facility], [address] [address], [place], [place], [address], [place] tel:[phone] Dina [facility] Hemorrhage of anus and rectumLower abdominal pain, unspecifiedIn ternal hemorrhoidsHe morrhage of anus and rectumLower abdominal pain, unspecifiedOt her hemorrhoids Nov-0 201 8 Franck Davalos. [address] [facility], [address], [id number], [place]. tel:[phone] Referring Provider: Referral Self. Offic/outpt E&m [facility] [address] [address], [place], [place], [address], [place] tel:[phone] [facility] GI Symptoms or Concerns (chief complaint) Lower abdominal painRectal bleedingDieta ry counseling and surveillance 8 Ema Case. [address] [facility], [facility] [address], [place], [place], [address], [place]. tel:[phone] Referring Provider: Tyler Miguel MD , [facility] [place], [address]. tel:[phone] Family History Family Member Type Diagnosis Age [...] bi-directional interface ; Source: Other Registry Novel [id number], injectable administered Note: [facility] bi-direct ional interface ; Source: Other Registry Payers Payer name Insurance type Covered democrat ID Authoriza tion(s) No Information Social History [...] bypass surgery done by Dr. Garsia at [facility]. He performed an endoscopy with dilation of [...] surgery. She has tried a number of mpok-nkk-ahzxorp laxatives including MiraLax, mag citrate, and Colace, [...] if needed -Will send out samples of [place]-Pelvic Floor Evaluation-Follow up appointment after the above [...]
--- NOTE | 2023-04-11 12:06 | PM.IMHP1 ---
Hospitalist- H&P: HPI History of Present Illness Time Seen by Provider: 12:06 Date Seen: 04/11/23 Chief complaint: fever, post hysterectomy Narrative: Anabelle Ruffin is a 32 year old female with PMH significant for gastric bypass surgery with multiple complications including need for feeding tube in the past, iron deficiency anemia thought partly secondary to menorrhagia, fatty liver disease, asthma, anxiety, substance use disorder (completed inpatient treatment for stimulants in 2022) and intermittently elevated LFTs who is POD#4 s/p laparascopic hysterectomy. She was doing well at home until last evening when she began feeling malaise with nausea so she went to bed at 6pm. She awoke at 11pm with significant nausea and dry heaves which she could not control. Her postoperative pain was then increased, presumably due to retching. She noted chills and took her temp which was low grade, about 99.9. She attempted to control nausea at home, taking multiple OTC medications without relief. She presented to the ER for further evaluation. In the ER, patient was afebrile, mildly hypertensive and uncomfortable. She was treated with IVF, morphine and then dilaudid for pain and ativan for nausea. Patient reports that she doesn't tolerate prochlorperazine, benadryl or vistaril. She often gets headaches from zofran and prefers to avoid that. Her symptoms improved, but her laboratory studies were concerning for elevated LFTs (AST, ALT and alkaline phosphatase). Synthetic function seems preserved with normal albumin, platelets and bilirubin. She is admitted under observation status for further evaluation. Patient reports a prior history of adderall abuse, for which she went through inpatient treatment earlier this year. She denies any concerns for abuse of alcohol or benzodiazepines. She very rarely drinks alcohol anymore and reports that she had a sip of her 's home brewed whiskey last evening prior to feeling ill, but did not have more than a sip. She states that no one else who drank this was ill. She denies any diarrhea and has not had a BM in at least 2 days, which she does not feel is uncommon for her. No other sick contacts. In terms of her LFTs, patient has been hospitalized here in the past with elevated LFTs thought to be secondary to alcoholic hepatitis. With minimal ETOH intake recently, I'd be concerned about another cause, potentially a chronic hepatitis picture from either her duloxetine or bupropion? She will likely need ongoing follow-up with her PCP. Review of Systems Status of ROS: Reports: 10 or more systems reviewed and unremarkable except as noted in History and below [facility] Medical History Abdominal pain ?R10.9 - Unspecified abdominal pain (ICD-10) Herpes zoster ?B02.9 - Zoster without complications (ICD-10) Spell of altered consciousness ?R40.4 - Transient alteration of awareness (ICD-10) Malnutrition ?E46 - Unspecified protein-calorie malnutrition (ICD-10) History of gastrostomy tube placement Controlled substance agreement signed ?Z79.899 - Other senior living (current) drug therapy (ICD-10) Hematoma of rectus sheath ?S30.1XXA - Contusion of abdominal wall, initial encounter (ICD-10) PTSD (post-traumatic stress disorder) ?F43.10 - Post-traumatic stress disorder, unspecified (ICD-10) ADHD ?F90.9 - Attention-deficit hyperactivity disorder, unspecified type (ICD-10) Major depressive disorder ?F32.9 - Major depressive disorder, single episode, unspecified (ICD-10) Deep vein thrombophlebitis of arm ?I80.8 - Phlebitis and thrombophlebitis of other sites (ICD-10) Transaminitis ?R74.01 - Elevation of levels of liver transaminase levels (ICD-10) Asthma ?J45.909 - Unspecified asthma, uncomplicated (ICD-10) Lung nodule ?R91.1 - Solitary pulmonary nodule (ICD-10) Fatty liver ?K76.0 - Fatty (change of) liver, not elsewhere classified (ICD-10) Hyperlipidemia ?E78.5 - Hyperlipidemia, unspecified (ICD-10) 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 (ICD-10) Migraine ?G43.909 - Migraine, unspecified, not intractable, without status migrainosus (ICD-10) Severe preeclampsia ?O14.10 - Severe pre-eclampsia, unspecified trimester (ICD-10) Pneumonia ?J18.9 - Pneumonia, unspecified organism (ICD-10) Cholecystectomy planned Kidney stones ?N20.0 - Calculus of kidney (ICD-10) Urinary frequency ?R35.0 - Frequency of micturition (ICD-10) Nerve pain ?M79.2 - Neuralgia and neuritis, unspecified (ICD-10) Cold sore ?B00.1 - Herpesviral vesicular dermatitis (ICD-10) Surgical History Hx of cholecystectomy ?Z90.49 - Acquired absence of other specified parts of digestive tract (ICD-10) Gastric bypass status for obesity ?Z98.84 - Bariatric surgery status (ICD-10) Family History Maternal Grandmother Breast cancer High blood pressure Mother Breast cancer Skin cancer Paternal Grandmother Lung cancer Aunt Breast cancer Daughter Congenital heart disease Maternal Grandfather Myocardial infarction High cholesterol High blood pressure Stroke Father High cholesterol High blood pressure Paternal Grandfather High cholesterol High blood pressure Social History Narrative: . Two young daughters. Denies tobacco use or illicit drug use. 1 glass of wine per week, most recent drink was the night before admission. What is your current living situation?: I presently have a place to live Problems where you live: no known problems Problems where you live details: none In the past 12 months, utilities in danger of being shut off: no In past 12 months, lack of transportation kept you from medical appts, meetings, work, or getting things needed for daily living: no In the past 12 mos, have been you worried that your food would run out before you had money to buy more?: never true In the past 12 mos, the food you bought just didn't last and you didn't have money to buy more?: never true Highest level of school completed/degree received: Master's degree Smoking Status: Former smoker What tobacco products do you use: cigarettes Smoking quit date/years: <= 15 years ago Do you use any of these nicotine containing products: None Second hand tobacco smoke exposure: No How often do you have a drink containing alcohol: monthly or less How many standard drinks containing alcohol do you have on a typical day: 1 or 2 How often do you have six or more drinks on one occasion: Never AUDIT-C Alcohol total score: 1 Non-prescribed substance use: denies use Caffeine: Yes (coffee) How often does anyone, including family, friends and others, physically hurt you: never How often does anyone, including family, friends and others, insult or talk down to you: never How often does anyone, including family, friends and others, threaten you with harm: never How often does anyone, including family, friends and others, scream or curse at you: never service: No Meds Home Medications and Allergies Home Medications Medication Instructions Recorded Confirmed Type dextroamphetamine-amphetamine 20 20 mg PO DAILY 04/14/22 04/11/23 History mg tablet albuterol sulfate 90 mcg/actuation 2 puff inhalation Q6H PRN wheezing 12/13/22 04/11/23 History aerosol inhaler (Ventolin HFA) cyanocobalamin (vitamin B-12) 1,000 mcg PO DAILY 12/13/22 04/11/23 History 1,000 mcg tablet duloxetine 30 mg capsule,delayed 120 mg PO HS 12/13/22 04/11/23 History release bupropion HCl 150 mg 24 hr tablet, 150 mg PO HS 03/09/23 04/11/23 History extended release Lactobacillus acidophilus 10 10,000 mmu cells PO DAILY 04/11/23 04/11/23 History billion cell capsule (NewFlora) acetaminophen 325 mg tablet 650 mg PO Q6H PRN 04/11/23 04/11/23 History (Non-Aspirin) calcium carbonate 500 mg-vitamin 1 tab PO DAILY 04/11/23 04/11/23 History D3 5 mcg (200 unit) tablet (Oyster Shell Calcium-Vitamin D3) dextroamphetamine-amphetamine 10 1 tab PO DAILY@14 04/11/23 04/11/23 History mg tablet docusate sodium 100 mg capsule 100 mg PO BID 04/11/23 04/11/23 History (Colace) famotidine 20 mg tablet (Acid 20 mg PO BID PRN 04/11/23 04/11/23 History Controller) ferrous sulfate 325 mg (65 mg 325 mg PO DAILY 04/11/23 04/11/23 History iron) tablet ipratropium 0.5 mg-albuterol 3 mg 3 ml inhalation QID PRN wheezing 04/11/23 04/11/23 History (2.5 mg base)/3 mL nebulization soln magnesium oxide 400 mg PO DAILY 04/11/23 04/11/23 History multivitamin (Daily Multi-Vitamin 1 tab PO DAILY 04/11/23 04/11/23 History tablet) oxycodone 5 mg tablet 5 mg PO Q4H PRN 04/11/23 04/11/23 History pantoprazole 40 mg tablet,delayed 40 mg PO BID 04/11/23 04/11/23 History release trazodone 150 mg tablet 150 mg PO HS 04/11/23 04/11/23 History Allergies Allergy/AdvReac Type Severity Reaction Status Date / Time amoxicillin Allergy Intermediate Hives Verified 03/09/23 17:13 metoclopramide [From Reglan] Allergy Mild anxiety, Verified 03/09/23 17:13 skin is crawling Penicillins Allergy Mild Hives Verified 03/09/23 17:13 prochlorperazine Allergy Mild anxiety, Verified 03/09/23 17:13 [From Compazine] skin crawling NSAIDS (Non-Steroidal Allergy Verified 03/09/23 17:13 Anti-Inflamma Exam Narrative: Exam Narrative: General: Anxious and tearful, but cooperative and in no acute distress HEENT: NCAT, MMM CV: RRR Resp: CTAB Abd: recent laparascopic incision sites are c/d/i with steristrips intact, there is bruising around incision in RLQ but no erythema or warmth. Abdomen is nondistended, bowel sounds are normal. She is tender to palpation throughout without guarding MSK: Normal Skin: Warm and dry, no obvious rashes Neuro: Face is symmetric, no lateralizing deficits noted Psych: Good eye contact, forthcoming, anxious and tearful Const: Vital Signs, click to edit/add: Vital Signs - 24 hr 04/11/23 07:03 04/11/23 07:25 04/11/23 07:30 Temperature 98.1 F Pulse Rate 83 77 Pulse Rate [Pulse Oximeter] 88 Respiratory Rate 20 Blood Pressure Blood Pressure [Ri ght Upper Arm] 162/113 H Pulse Oximetry 100 100 99 Oxygen Delivery Me thod Room Air 04/11/23 07:45 04/11/23 08:00 04/11/23 08:01 Temperature Pulse Rate 80 78 79 Pulse Rate [Pulse Oximeter] Respiratory Rate Blood Pressure 147/107 H Blood Pressure [Ri ght Upper Arm] Pulse Oximetry 100 100 100 Oxygen Delivery Me thod 04/11/23 08:28 04/11/23 08:30 04/11/23 08:31 Temperature Pulse Rate 79 81 83 Pulse Rate [Pulse Oximeter] Respiratory Rate Blood Pressure 151/98 H Blood Pressure [Ri ght Upper Arm] Pulse Oximetry 100 100 100 Oxygen Delivery Tx thod 04/11/23 08:45 04/11/23 09:00 04/11/23 09:01 Temperature Pulse Rate 84 87 88 Pulse Rate [Pulse Oximeter] Respiratory Rate Blood Pressure 152/100 H Blood Pressure [Ri ght Upper Arm] Pulse Oximetry 100 100 [facility] 04/11/23 09:15 04/11/23 09:30 04/11/23 09:31 Temperature Pulse Rate 86 89 97 Pulse Rate [Pulse Oximeter] Respiratory Rate Blood Pressure 139/114 H Blood Pressure [Ri ght Upper Arm] Pulse Oximetry 100 100 100 [facility] 04/11/23 09:45 Temperature Pulse Rate 91 Pulse Rate [Pulse Oximeter] Respiratory Rate Blood Pressure Blood Pressure [Ri ght Upper Arm] Pulse Oximetry 100 Oxygen Delivery [facility] Hospitalist - H&P: Result Labs Labs: Short CBC 04/11/23 Range/Units 07:45 WBC 3.96 L (4.50-11.00) K/uL Hgb 12.5 (12.0-16.0) gm/dL Hct 37.7 (33.0-51.0) % Plt Count 329 (140-440) K/uL BMP 04/11/23 07:45 Sodium 137 Potassium 3.7 Chloride 102 Carbon Dioxide 27 BUN 8 Creatinine 0.5 Glucose 71 Calcium 9.1 Liver Function 04/11/23 Range/Units 07:45 Total Bilirubin 0.3 (0.1-1.5) mg/dL AST 493 H (12-35) U/L ALT 234 H (4-35) U/L Alkaline Phosphatase 195 H (40-150) U/L Albumin 4.5 (3.3-5.0) g/dL Urine 04/11/23 Range/Units 08:11 Urine Color Yellow (Yellow) Urine Appearance Clear (Clear) Urine pH 7.5 (5.0-8.5) Ur Specific Chappell 1.015 (1.000-1.030) Urine Protein Negative (Negative) Urine Glucose (UA) Negative (Negative) Assessment and Plan Assessment and plan (1) Transaminitis: Status: Acute Assessment and Plan: Unclear etiology, but has been noted in the past. Patient had fatty liver disease which was her qualifying diagnosis for her gastric bypass. AST>>ALT raises concern for alcohol use and patient was counseled against ANY alcohol use going forward based on her liver disease and history of gastric bypass. It is possible that other chronic meds may contribute, although seems less likely including ativan, duloxetine and bupropion -Monitor overnight, repeat LFTs in am. If not improving, consider hepatitis panel, further labs -Consider further imaging -Hold potentially offending meds as possible (allowing small amount of ativan given difficulty with other classes of anti-nausea meds (2) Fatty liver: Problem comment: noted on CT scan 02/2020. Suspect the possibility of alcoholic fatty liver disease. I counseled patient on stopping all alcohol use 12/13/22. Status: Acute Assessment and Plan: See above plan for transaminitis (3) Nausea & vomiting: Status: Acute Assessment and Plan: Patient with nausea and vomiting since last evening. No recent sick contacts or suspect food. She is afebrile and has not had any diarrhea. She is s/p gastric bypass with multiple complications including use of a feeding tube and dilations in the past, but states that nausea and vomiting is unusual for her. She has adverse reactions to multiple anti-emetics, including reglan, benadryl, compazine, vistaril and zofran. She does tend toward constipation and has not had a BM in at least 2 days. -Continue symptomatic management with scopolamine patch, zofran (if headache tolerated) and ativan as last resort -Will trial miralax to help with constipation -If no improvement, may need to reach out to her bariatrics team Thursday -Currently does not appear to need IVF, but if unable to keep PO down, may need fluids (4) Post-op pain: Status: Acute Assessment and Plan: Patient is POD#4 s/p lap hysterectomy. States that her pain is well controlled if she doesn't get behind on her pain meds. Appears to have routine healing. -Continue oxycodone 5mg Q6H scheduled -IV dilaudid available for breakthrough pain (5) Anxiety: Status: Acute Assessment and Plan: Patient typically takes ativan only as needed, stating she has #30 tabs every 90 days. She denies taking more than prescribed -OK to continue small amt of ativan here, but will minimize as able
[2023-04-11] MEDS: HYDROmorphone 0.5 mg/0.5 ml inj IVP ×3 (12:49→20:04)
[2023-04-11] MEDS: OXYCODONE 5 MG TABLET PO ×2 (14:52→20:48)
[2023-04-11] MEDS: SODIUM CHLORIDE 0.9 % (FLUSH) 10 ML SYRINGE 5 ML IVF ×2 (16:30→20:05)
[2023-04-11] MEDS: 5 % DEXTROSE/0.9% SOD CHLORIDE 1,000 ML 125 ML IV (16:44)
[2023-04-11] MEDS: OMEPRAZOLE 20 MG CAPSULE DR 40 MG PO (16:45)
[2023-04-11] MEDS: LORazepam 0.5 MG TABLET PO (16:45)
--- NOTE | 2023-04-11 18:52 | PC.NURSE ---
End of Shift: The patient arrived to the floor late this morning with reports of uncontrolled RLQ pain and N/V and elevated Liver enzymes. She was tearful throughout the day due to pain. She is allergic to Compazine and stated that Zofran gives her headaches, aromatherapy, and becky abby were used to help with nausea as well. Scopolamine patch was offered to the patient, but she refused.. she stated it messes with my vision The patient attempted to eat a regular diet 2x today.. but she could not tolerate it 1 episode of emesis for 100cc this AM of chunky stomach contents. Later this after she was dry heaving after oxycodone administration. IV Dilaudid was given 2x today, scheduled oxy to keep pain under control... PO Ativan was given 1x at the patients request to help control her nausea. After not tolerating a regular diet Dr Mar ordered a clear liquid diet along with IV fluids @ 125 (D5). Patient is on continuos pulse oximetry due to IV pain medications and PO Ativan administration. Update was given to the patient's Davis on the phone this evening. 4 laparoscopic sites from hysterectomy.... done in the [facility]..RLQ lap site has large bruise ... per the patient most of her pain is there. Call light within reach... and calls appropriately.
[2023-04-11] MEDS: ACETAMINOPHEN 325 MG TABLET 650 MG PO (20:04)
[2023-04-11] MEDS: TRAZODONE HCL 50 MG TABLET 150 MG PO (20:47)
[2023-04-11] MEDS: SENNOSIDES/DOCUSATE TABLET 1 TAB PO (20:47)
[2023-04-11] MEDS: DOCUSATE SODIUM 100 MG CAPSULE PO (21:26)
[2023-04-11] MEDS: buPROPion XL 150 MG TABLET PO (21:26)
[2023-04-11] MEDS: DULOXETINE 30 MG CAPSULE DR 60 MG PO (21:26)
[2023-04-12] VITALS (9 sets, daily range): BP systolic 110–132; BP diastolic 74–100; PULSE 70–97; RESP 16–20; TEMP 36.5–36.9; O2SAT 96–97
[2023-04-12] MEDS: HYDROmorphone 0.5 mg/0.5 ml inj IVP ×7 (00:02→23:55)
[2023-04-12] MEDS: 5 % DEXTROSE/0.9% SOD CHLORIDE 1,000 ML 125 ML IV (00:30)
[2023-04-12] MEDS: OXYCODONE 5 MG TABLET PO ×4 (04:44→20:50)
--- NOTE | 2023-04-12 06:09 | PC.NURSE ---
Pt alert and oriented x3. Afebrile. Pt reports 8/10 pain in RLQ, pain managed with PRN and scheduled medications. Pt is up ad briana in room, voiding, and tolerating a full liquid diet. Pt slept throughout most of night. Night uneventful.
[2023-04-12] MEDS: OMEPRAZOLE 20 MG CAPSULE DR 40 MG PO ×2 (06:22→16:34)
[2023-04-12 06:37] LABS: Basophils Percent Auto 0.6 % (0.0-3.0); Eosinophils Percent Auto 7.1 % (0.0-7.0); Hematocrit 34.9 % (33.0-51.0); Hemoglobin* 11.3 gm/dL (12.0-16.0); Immature Granulocytes Pct Auto 0.3 %; Lymphocytes Percent Auto 49.4 % (20-44); Mean Corpuscular HGB Conc 32 gm/dL (32-36); Mean Corpuscular Hemoglobin 29 pg (26-34); Mean Corpuscular Volume 89 fL (80-100); Monocytes Percent Auto 5.9 % (0.0-11.0); Neutrophils Percent Auto 36.7 % (42.0-72.0); Platelet Count* 338 K/uL (140-440); RDW Coefficient of Variation % 14.2 % (11.5-15.5); Red Blood Count 3.91 m/uL (4.00-5.20); White Blood Count* 3.38 K/uL (4.50-11.00)
[2023-04-12 06:43] LABS: Slide Review Reflex No
[2023-04-12 06:59] LABS: Albumin* 3.2 g/dL (3.3-5.0); Chloride* 108 mmol/L (96-114); Sodium* 139 mmol/L (135-149)
[2023-04-12 07:01] LABS: Anion Gap 5 mEq/L (7-15); Bilirubin Total* 0.3 mg/dL (0.1-1.5); Carbon Dioxide* 26 mmol/L (20-32); Creatinine* 0.5 mg/dL (0.5-1.5); Est. Creatinine Clearance* 126.57; Estimated Glomerular Filt Rate 127 ml/min
[2023-04-12 07:02] LABS: Alanine Aminotransferase* 362 U/L (4-35); Alkaline Phosphatase* 217 U/L (40-150); Aspartate Amino Transferase* 313 U/L (12-35); Blood Urea Nitrogen* 4 mg/dL (5-24); Calcium* 8.3 mg/dL (8.4-10.6); Glucose* 93 mg/dL (60-115); Lipase* 45 U/L (23-300); Total Protein* 5.8 g/dL (6.0-8.3)
[2023-04-12 07:31] LABS: Thyroid Stimulating Hormone* 0.991 uIU/mL (0.270-4.20)
[2023-04-12] MEDS: CYANOCOBALAMIN (VITAMIN B-12) 500 MCG TABLET 1000 MCG PO (08:54)
[2023-04-12] MEDS: polyethylene glycoL 3350 17 GM PACK PO (08:55)
[2023-04-12] MEDS: MAGNESIUM OXIDE 400 MG TABLET PO (08:55)
[2023-04-12] MEDS: DOCUSATE SODIUM 100 MG CAPSULE PO ×2 (08:55→20:50)
[2023-04-12] MEDS: MULTIVITAMIN/MINERALS 1 TABLET 1 TAB PO (08:55)
--- NOTE | 2023-04-12 10:44 | CRLHL7_ITS ---
For Patients: As a result of the Century Cures Act, medical imaging exams and procedure reports are released immediately into your electronic medical record. You may view this report before your referring provider. If you have questions, please contact your health care provider. INDICATION: Persistent nausea vomiting post hysterectomy. Elevated liver function tests. TECHNIQUE: CT abdomen and pelvis acquired with 69 cc Isovue 370 IV contrast. COMPARISON: December 13, 2022. FINDINGS: Lower chest: Unremarkable. Liver: Unremarkable. Normal in size and attenuation. No suspicious masses. Gallbladder and bile ducts: Cholecystectomy. No biliary dilatation. Pancreas: Unremarkable. No mass or inflammation. Spleen: Unremarkable. Normal in size. No masses. Adrenal glands: Unremarkable. No nodules. Kidneys: Unremarkable. No suspicious masses, stones, or hydronephrosis. GI tract: Stable gastric bypass changes. Mild stool distention of the transverse and descending colon. Nonspecific narrowed segment in the ascending colon. Unremarkable small bowel. Appendix is not visualized. Vasculature: Abdominal aorta is normal in caliber. Mesenteric arteries are patent. Lymph nodes: No lymphadenopathy. Peritoneum/Abdominal Wall: Intra-abdominal free air present. No fluid collections. Pelvis: No abnormalities in the pelvis. Bones: Unremarkable for age. IMPRESSION: 1. Intra-abdominal free air is presumably postoperative in nature. 2. Stool filled distention of the transverse and descending colon. No obstructive changes in the GI tract. 3. No other specific finding to explain nausea or vomiting. Please note that all CT scans at this facility use dose modulation, iterative reconstruction, and/or weight-based dosing when appropriate to reduce radiation dose to as low as reasonably achievable. Dictated by Duncan Santoyo MD @ 04/12/2023 12:07:39 PM (Electronically Signed)
--- NOTE | 2023-04-12 10:50 | P.IMPN_ITS ---
Progress Note: A&P Assessment and plan (1) Transaminitis: Status: Acute Assessment and Plan: Unclear etiology, but has been noted in the past. Patient had fatty liver disease which was her qualifying diagnosis for her gastric bypass. AST>>ALT raises concern for alcohol use and patient was counseled against ANY alcohol use going forward based on her liver disease and history of gastric bypass. It is possible that other chronic meds may contribute, although seems less likely including ativan, duloxetine and bupropion. No significant improvement overnight, but fairly stable. -With ongoing N/V, will get abd/pelvis CT scan -Checking acute hepatitis panel -Hold potentially offending meds as possible (allowing small amount of ativan given difficulty with other classes of anti-nausea meds) (2) Fatty liver: Status: Acute Assessment and Plan: See above plan (3) Nausea & vomiting: Status: Acute Assessment and Plan: Complicated by history of gastric bypass surgery and intolerance to multiple nausea medications. She was able to tolerate full liquids, but as soon as she advanced to solid foods had recurrent emesis. She is also just 5d postop from lap hysterectomy. She has not had any BMs since being here (she thinks it has been 3d) and opioids likely contribute to constipation, but also concern for partial SBO given numerous abdominal procedures in the past. She is on scheduled dulcolax and now mirlalax. -Continue symptomatic management with zofran and ativan (does not tolerate reglan, benadryl, compazine, scopolamine) -If unable to keep vitamins down, may need IV vitamins -Back to clear liquids for now, would not advance further today -IV lactated ringer's -Will obtain CT abd/pelvis given her recent surgery (4) Post-op pain: Status: Acute Assessment and Plan: POD #5 s/p lap hysterectomy. Incisions are c/d/i -COntinue scheduled oxycodone, with persistently elevated LFTs will try to avoid Tylenol -IV dilaudid for breakthrough pain (hold off on discontinuing until CT results) (5) Anxiety: Status: Acute Assessment and Plan: Continue [employer] meds Subjective Date Seen: 04/12/23 Interval history: Patient is seen and examined. She was tolerating full liquids fairly well this am with no vomiting and nausea reasonably well controlled. She has ongoing low abd pain, but has not worsened overnight. We discussed her persistently elevated LFTs with normal bilirubin and I recommended checking acute hepatitis panel. Since she was feeling better, we advanced her to a regular diet, but she had recurrent emesis. She denies any other new concerns General: No acute distress HEENT: NCAT, MMM CV: RRR Resp: Breathing is comfortable and unlabored Abd: recent laparascopic incision sites are c/d/i with steristrips intact, there is bruising around incision in RLQ but no erythema or warmth. Abdomen is nondistended, bowel sounds are hypoactive. She is tender to palpation throughout without guarding MSK: Normal Skin: Warm and dry, no obvious rashes Neuro: Face is symmetric, no lateralizing deficits noted Psych: Good eye contact, forthcoming Exam Const: Vital Signs, click to edit/add: Vital Signs - 24 hr 04/11/23 14:56 04/11/23 15:00 04/11/23 20:00 Temperature 98.1 F 98.2 F Pulse Rate [Right Pulse Oximeter] 87 89 Pulse Rate [orthos tatic lying] Pulse Rate [orthos tatic sitting] Pulse Rate [orthos tatic standing] Respiratory Rate 16 16 16 Blood Pressure [Ri ght Arm] 150/116 H 133/98 H Blood Pressure [or thostatic lying] Blood Pressure [or thostatic sitting] Blood Pressure [or thostatic standing ] Pulse Oximetry 97 100 98 Oxygen Delivery Me thod Room Air Room Air Room Air 04/11/23 22:04 04/11/23 22:13 04/11/23 22:13 Temperature 98.1 F Pulse Rate [Right Pulse Oximeter] 89 97 Pulse Rate [orthos tatic lying] Pulse Rate [orthos tatic sitting] Pulse Rate [orthos tatic standing] Respiratory Rate 16 16 16 Blood Pressure [Ri ght Arm] 127/81 Blood Pressure [or thostatic lying] Blood Pressure [or thostatic sitting] Blood Pressure [or thostatic standing ] Pulse Oximetry 94 94 Oxygen Delivery Me thod Room Air Room Air 04/12/23 01:12 CDT 04/12/23 07:00 04/12/23 07:00 Temperature 98.3 F Pulse Rate [Right Pulse Oximeter] 97 77 Pulse Rate [orthos tatic lying] Pulse Rate [orthos tatic sitting] Pulse Rate [orthos tatic standing] Respiratory Rate 16 16 16 Blood Pressure [Ri ght Arm] 110/76 Blood Pressure [or thostatic lying] Blood Pressure [or thostatic sitting] Blood Pressure [or thostatic standing ] Pulse Oximetry 97 97 Oxygen Delivery Me thod Room Air Room Air 04/12/23 08:44 04/12/23 08:46 Temperature 98.4 F Pulse Rate [Right Pulse Oximeter] 77 Pulse Rate [orthos tatic lying] 70 Pulse Rate [orthos tatic sitting] 84 Pulse Rate [orthos tatic standing] 93 Respiratory Rate 16 Blood Pressure [Ri ght Arm] 116/80 Blood Pressure [or thostatic lying] 111/76 Blood Pressure [or thostatic sitting] 112/81 Blood Pressure [or thostatic standing ] 115/92 H Pulse Oximetry 97 Oxygen Delivery Me thod Room Air Labs Labs: Laboratory Results - last 24 hr 04/12/23 05:41 WBC 3.38 L RBC 3.91 L Hgb 11.3 L Hct 34.9 MCV 89 MCH 29 MCHC 32 RDW Coeff of Vega 14.2 Plt Count 338 Neut % (Auto) 36.7 L Lymph % (Auto) 49.4 H Bos[place] % (Auto) 5.9 Eos % (Auto) 7.1 H Baso % (Auto) 0.6 Neut # (Auto) 1.20 L Lymph # (Auto) 1.70 Bosque # (Auto) 0.20 Eos # (Auto) 0.20 Baso # (Auto) 0.00 Abs Immat Gran (auto) 0.00 Imm/Tot Granulo (auto) 0.3 Sodium 139 Potassium 4.0 Chloride 108 Carbon Dioxide 26 Anion Gap 5 L BUN 4 L Creatinine 0.5 Estimated Creat Clear 126.57 Estimated GFR 127 Glucose 93 Calcium 8.3 L Total Bilirubin 0.3 AST 313 H ALT 362 H Alkaline Phosphatase 217 H Total Protein 5.8 L Albumin 3.2 L Lipase 45 TSH 0.991
[2023-04-12] MEDS: LACTATED RINGERS 1000 ML 1,000 ML 75 ML IV ×2 (11:21→23:55)
[2023-04-12] MEDS: bisacodyL 10 MG SUPP.RECT PR (13:10)
[2023-04-12] MEDS: SENNOSIDES/DOCUSATE TABLET 2 TAB PO (13:10)
--- NOTE | 2023-04-12 15:49 | PC.NURSE ---
End of Shift: Patient pleasant and cooperative. Patient vitally stable, lungs clear, BS WNL, IV running LR at 75. Patient rates pain at most 9/10, scheduled oxy given and dilauded 0.5 given x2. Patient had emesis after eating half an omelette for breakfast. Patient tolerating clear liquids. Patient reports being uncomfortable overall. Patient independent in room. Patient urinating well, has not yet had a BM.
[2023-04-12] MEDS: LORazepam 0.5 MG TABLET PO (16:35)
[2023-04-12] MEDS: DULOXETINE 30 MG CAPSULE DR 60 MG PO (20:50)
[2023-04-12] MEDS: TRAZODONE HCL 50 MG TABLET 150 MG PO (20:50)
[2023-04-12] MEDS: buPROPion XL 150 MG TABLET PO (20:50)
[2023-04-12] MEDS: SODIUM CHLORIDE 0.9 % (FLUSH) 10 ML SYRINGE 5 ML IVF (20:51)
[2023-04-13] MEDS: OXYCODONE 5 MG TABLET PO ×2 (02:54→09:17)
[2023-04-13 02:55] VITALS: BP 110/66; PULSE 71; RESP 16; TEMP 36.8; O2SAT 97
[2023-04-13] MEDS: OMEPRAZOLE 20 MG CAPSULE DR 40 MG PO (06:45)
--- NOTE | 2023-04-13 06:53 | PC.NURSE ---
Pt is alert and oriented x3. Afebrile. Pt reports 7/10 pain in RLQ, pain managed with PRN and scheduled medications. Pt is up ad briana in room, tolerating a full liquid diet. Pt slept intermittently throughout night. Night uneventful.
[2023-04-13 07:00] VITALS: BP 118/82; PULSE 71; RESP 19; TEMP 36.9; O2SAT 98
[2023-04-13] MEDS: CYANOCOBALAMIN (VITAMIN B-12) 500 MCG TABLET 1000 MCG PO (09:14)
[2023-04-13] MEDS: SENNOSIDES/DOCUSATE TABLET 2 TAB PO (09:15)
[2023-04-13] MEDS: DOCUSATE SODIUM 100 MG CAPSULE PO (09:16)
[2023-04-13] MEDS: MAGNESIUM OXIDE 400 MG TABLET PO (09:16)
[2023-04-13] MEDS: polyethylene glycoL 3350 17 GM PACK PO (09:17)
[2023-04-13] MEDS: MULTIVITAMIN/MINERALS 1 TABLET 1 TAB PO (09:17)
[2023-04-13 10:13] LABS: Albumin* 3.6 g/dL (3.3-5.0); Chloride* 106 mmol/L (96-114)
[2023-04-13 10:14] LABS: INR 0.89 (0.91-1.10); Potassium* 4.4 mmol/L (3.6-5.1); Prothrombin Time 12.6 Seconds; Sodium* 139 mmol/L (135-149)
[2023-04-13 10:16] LABS: Alanine Aminotransferase* 237 U/L (4-35); Alkaline Phosphatase* 206 U/L (40-150); Anion Gap 5 mEq/L (7-15); Aspartate Amino Transferase* 82 U/L (12-35); Bilirubin Total* 0.4 mg/dL (0.1-1.5); Blood Urea Nitrogen* 5 mg/dL (5-24); Carbon Dioxide* 28 mmol/L (20-32); Creatinine* 0.6 mg/dL (0.5-1.5); Est. Creatinine Clearance* 105.48; Estimated Glomerular Filt Rate 121 ml/min; Glucose* 89 mg/dL (60-115); Total Protein* 6.3 g/dL (6.0-8.3)
--- NOTE | 2023-04-13 10:34 | P.DS_ITS ---
DS: Providers Provider Date Seen: 04/13/23 Date of admission: 04/11/23 10:31 Primary care physician: Jakub Cai MD Admitting Clinician: Aristeo Rand MD Attending Physician on discharge: Jerrica Borrero MD Date of Discharge: 04/13/23 DS: Diagnosis Discharge Diagnosis (1) Nausea & vomiting: Status: Acute (2) Anxiety: Status: Acute (3) Transaminitis: Status: Acute (4) Post-op pain: Status: Acute DS: Summary Hospital Course Hospital Course: Patient presented to the hospital when she was POD#4 s/p lap hysterectomy. She had intractable nausea and vomiting and was noted to have elevated AST, ALT and Alk phos in the ER. She was admitted for further management. Labs were otherwise unremarkable and synthetic function appeared preserved. She was treated with bowel rest, anti-nausea medications and IVF. She had initial improvement, but when diet was advanced on HOD#2, she developed vomiting again. Given her history of gastric bypass surgery and her recent laparoscopy, we elected to obtain further abd/pelvis imaging with CT. This showed a high stool burden in the transverse and descending colon, but no other obvious acute issues. Liver did not show any pathology on CT and she is s/p cholecystectomy with no biliary dilation. She was managed with aggressive bowel management and was able to pass some stool. She was tolerating a full liquid diet at the time of discharge. TSH was normal. Suspect N/V exacerbated by opioid induced constipation as she was recently post-op. She has a history of constipation and feels comfortable managing this at home. In terms of LFT elevation, her levels were improving at the time of discharge. Unclear if they were elevated secondary to tylenol use in the setting of history of FLD. Could also consider potential offending meds including duloxetine and bupropion. Patient is adamant that she isn't drinking much if any alcohol recently, but had tasted her 's home distilled whiskey on the night her symptoms started. I encouraged her to avoid all alcohol and tylenol for now. She will need ongoing management/monitoring of LFTs and hopefully avoid hepatotoxic compounds going forward. She will follow up with her surgeon for ongoing pain management postop Status at Discharge Functional status at discharge: independent ambulation Time Spent with Patient Time attestation: Total time spent providing and/or coordinating discharge services: Time spent: Greater than 30 minutes Exam Narrative: Exam Narrative: General: No distress, resting in bed HEENT: NCAT, MMM Resp: Breathing is comfortable and unlabored, CTAB CV: RRR, no m/g/r Abd: Nondistended, mildly TTP (appropriate for postop), incisions are c/d/i Neuro: Nonfocal Const: Vital Signs, click to edit/add: Vital Signs - 24 hr 04/12/23 11:00 04/12/23 15:00 04/12/23 15:00 Temperature 97.7 F 98.2 F Pulse Rate [Right Pulse Oximeter] 77 80 Respiratory Rate 20 18 Blood Pressure [Ri ght Arm] 125/79 132/100 H Pulse Oximetry 96 97 97 Oxygen Delivery Me thod Room Air Room Air Room Air 04/12/23 21:00 04/12/23 22:43 04/12/23 23:55 Temperature 98.0 F Pulse Rate [Right Pulse Oximeter] 72 Respiratory Rate 16 16 16 Blood Pressure [Ri ght Arm] 126/80 Pulse Oximetry 96 96 Oxygen Delivery Me thod Room Air Room Air 04/12/23 23:55 04/13/23 02:55 04/13/23 07:00 Temperature 98.3 F 98.2 F Pulse Rate [Right Pulse Oximeter] 83 71 Respiratory Rate 16 16 19 Blood Pressure [Ri ght Arm] 118/74 110/66 Pulse Oximetry 96 97 98 Oxygen Delivery Me thod Room Air Room Air Room Air 04/13/23 07:00 Temperature 98.4 F Pulse Rate [Right Pulse Oximeter] 71 Respiratory Rate 19 Blood Pressure [Ri ght Arm] 118/82 Pulse Oximetry 98 Oxygen Delivery Me thod Room Air DS: Data Data Completed and Pending Labs on day of discharge: Labs from last 24 hours 04/13/23 04/12/23 09:30 05:41 INR 0.89 L Sodium 139 Potassium 4.4 Chloride 106 Carbon Dioxide 28 Anion Gap 5 L BUN 5 Creatinine 0.6 Estimated Creat Clear 105.48 Estimated GFR 121 Glucose 89 Calcium 9.0 Total Bilirubin 0.4 AST 82 H ALT 237 H Alkaline Phosphatase 206 H Total Protein 6.3 Albumin 3.6 Hepatitis A IgM Ab Pending Hep Bs Antigen Pending Hep B Core IgM Ab Pending Hep C Ab Index (CATE) Pending Hep C Ab Interp CATE Pending Hepatitis Interpret Pending Preliminary micro results at discharge 04/11/23 07:45 Blood Culture - Preliminary Blood NO GROWTH AFTER 48 HOURS Discharge Plan Discharge Disposition: Home, Self-Care Date of Admission: 04/11/23 10:31 Attending Provider on Discharge: Jerrica Borrero Primary Care Provider: Jakub Cai I Condition: Improved Anticipated Discharge Date/Time: 04/13/23 10:22 Discharge Medications: New polyethylene glycol 3350 [Miralax] 17 gram Powder In Packet 17 g PO DAILY 30 Days Qty: 30 0RF sennosides-docusate sodium [Stool Softener-Laxative] 8.6-50 mg Tablet 2 tab PO DAILY 30 Days Qty: 60 0RF Continued albuterol sulfate [Ventolin HFA] 90 mcg/actuation HFA aerosol inhaler 2 puff INHALATION Q6H PRN (Reason: wheezing) cyanocobalamin (vitamin B-12) 1,000 mcg tablet 1,000 mcg PO DAILY duloxetine 30 mg capsule,delayed release(DR/EC) 120 mg PO HS bupropion HCl 150 mg tablet extended release 24 hr 150 mg PO HS trazodone 150 mg tablet 150 mg PO HS pantoprazole 40 mg tablet,delayed release (DR/EC) 40 mg PO BID oxycodone 5 mg tablet 5 mg PO Q4H PRN docusate sodium [Colace] 100 mg capsule 100 mg PO BID famotidine [Acid Controller] 20 mg tablet 20 mg PO BID PRN ipratropium-albuterol 0.5 mg-3 mg(2.5 mg base)/3 mL solution for nebulization 3 ml INHALATION QID PRN (Reason: wheezing) calcium carbonate-vitamin D3 [Oyster Shell Calcium-Vit D3] 500 mg-5 mcg (200 unit) tablet 1 tab PO DAILY multivitamin [Daily Multi-Vitamin] Tablet 1 tab PO DAILY magnesium oxide 400 mg magnesium tablet 400 mg PO DAILY ferrous sulfate 325 mg (65 mg iron) tablet 325 mg PO DAILY NewFlora 10 billion cell capsule 10,000 mmu cells PO DAILY Discontinued dextroamphetamine-amphetamine 20 mg tablet 20 mg PO DAILY Patient Comments: 20MG QAM AND 10MG QPM dextroamphetamine-amphetamine 10 mg tablet 1 tab PO DAILY@14 acetaminophen [Non-Aspirin] 325 mg tablet 650 mg PO Q6H PRN Discharge Orders: Discharge Order (Routine); Ordered 04/13/23 Ordered By: Jerrica Borrero Patient Education: Constipation (DC) Additional Instructions: fluids, light activity, constipation management, update housekeeping coordinator in 2 days Activity Level: Light activity Discharge Diet: Full Liquid Diet Detail: Advanced diet as tolerated Follow Up Appointments: Jakub Cai MD [Primary Care Provider] - (Please follow up in 1-2 weeks) Forms: [employer] Info Instructions
[2023-04-13 11:00] VITALS: BP 126/73; PULSE 83; RESP 18; TEMP 36.8; O2SAT 96
[2023-04-13] MEDS: HYDROmorphone 0.5 mg/0.5 ml inj IVP (12:04)
[2023-04-13 12:40] VITALS: BP 118/98; BP 129/97; BP 130/86; PULSE 83; PULSE 94; PULSE 97
--- NOTE | 2023-04-13 14:32 | PC.NURSE ---
Patient ambulated independently in room. Tolerated liquid diet well. Denied any discomfort with eating. Reported pain in right lower abdomen rated 7-8/10. Was given scheduled and PRN pain medications this shift. VSS. Dressings CD&I. Patient discharged at 1342. Patient reported someone was picking her up at the front door. Patient ambulated independently out of Med/Surg without staff assistance per her request.
[2023-04-14 17:58] LABS: Hep A Ab, IgM Negative (Negative); Hep B Core Ab, IgM Negative (Negative); Hep B Surface Antigen Negative (Negative); Hep C Ab by CIA Index 0.06 IV; Hep C Ab by CIA Interp Negative (Negative)
== END 2023-04-13 13:42 | disposition home or self-care (01) ==
LOC: ED 08:29 → MEDSURG 13:54
PROVIDERS: Family Medicine; Admitting Provider Family Medicine; Emergency Provider Internal Medicine; PCP Family Medicine; Visit Provider Family Medicine
DX: R74.01 Elevation of levels of liver transaminase levels (principal); R94.5 Abnormal results of liver function studies; R74.8 Abnormal levels of other serum enzymes; R79.89 Other specified abnormal findings of blood chemistry; G89.18 Other acute postprocedural pain; K76.0 Fatty (change of) liver, not elsewhere classified; R11.10 Vomiting, unspecified; R11.0 Nausea; F41.9 Anxiety disorder, unspecified; E78.5 Hyperlipidemia, unspecified; I10 Essential (primary) hypertension; J45.909 Unspecified asthma, uncomplicated; F90.9 Attention-deficit hyperactivity disorder, unspecified type; K59.09 Other constipation; E06.3 Autoimmune thyroiditis; R53.81 Other malaise; D50.0 Iron deficiency anemia secondary to blood loss (chronic); Z79.899 Other long term (current) drug therapy; Z98.84 Bariatric surgery status; Z90.49 Acquired absence of other specified parts of digestive tract; Z87.891 Personal history of nicotine dependence
CPT/HCPCS: 36415; 74177; 80053; 80074; 80143; 80179; 80306; 81003; 81015; 82077; 82150; 83605; 83690; 84443; 85025; 85610; 87040; 87081; 96361; 96365; 96366; 96375; 99284; A9153; A9270; G0378; J1170; J2270; J2405; J7030; J7042; J7120; Q9967

== ENCOUNTER 2023-08-07 20:38 | Emergency (ER) | payer OTHER, SELFPAY ==
[2023-08-07 20:44] VITALS: BP 154/112; PULSE 112; RESP 20; TEMP 36.6; O2SAT 99; BMI 27.6
--- NOTE | 2023-08-07 20:55 | XR_ITS ---
Patient: DANTE MCCARTHY Facility:?[facility] Patient ID:?[id number] Site Patient ID:?[id number]. Site :?[id number] Study:?XRay-Chest 2 VIEW-08/07/2023 9:02:21 PM Ordering Physician:PORFIRIO Final Report: INDICATION: Shortness of breath. TECHNIQUE: Chest 2 view(s) COMPARISON: Chest radiograph dated 09/03/2021. FINDINGS: Cardiomediastinal silhouette and pulmonary vasculature are normal. No focal consolidation. No layering pleural effusion. No pneumothorax. Mild multilevel degenerative changes of the visualized spine. Prominent gaseous distention of the visualized colon in the upper abdomen. IMPRESSION: 1. No focal consolidation. 2. Prominent gaseous distention of the visualized colon in the upper abdomen. Dictated by Dinora Lomax MD @ 08/07/2023 9:09:29 PM Signed by:?Dinora Lomax MD @08/07/2023 9:09:29 PM (Electronic Signature)
--- NOTE | 2023-08-07 20:56 | ED_ITS ---
HPI - General Adult General Chief complaint: Chest Pain Stated complaint: cough, chest pain Time Seen by Provider: 08/07/23 20:46 History of Present Illness HPI narrative: Patient is a 33-year-old woman who was seen in urgent care earlier today with cough. She had COVID several weeks ago and has had post COVID cough. She presents tonight after being started on a course of prednisone and antitussives. She has had no fevers no chills no night sweats. She has had no production to her cough. Her oxygen saturation is 99%. She has history of anxiety and does feel tingling in her extremities likely due to tachypnea. No other related symptoms. Workup from urgent care reviewed. Related Data Home Medications Medication Instructions Recorded Confirmed albuterol sulfate 90 mcg/actuation 2 puff inhalation Q6H PRN wheezing 12/13/22 08/07/23 aerosol inhaler (Ventolin HFA) cyanocobalamin (vitamin B-12) 1,000 mcg PO DAILY 12/13/22 08/07/23 1,000 mcg tablet duloxetine 30 mg capsule,delayed 120 mg PO HS 12/13/22 08/07/23 release bupropion HCl 150 mg 24 hr tablet, 150 mg PO HS 03/09/23 08/07/23 extended release Lactobacillus acidophilus 10 10,000 mmu cells PO DAILY 04/11/23 08/07/23 billion cell capsule (NewFlora) calcium carbonate 500 mg-vitamin 1 tab PO DAILY 04/11/23 08/07/23 D3 5 mcg (200 unit) tablet (Oyster Shell Calcium-Vitamin D3) docusate sodium 100 mg capsule 100 mg PO BID 04/11/23 08/07/23 (Colace) famotidine 20 mg tablet (Acid 20 mg PO BID PRN 04/11/23 08/07/23 Controller) ferrous sulfate 325 mg (65 mg 325 mg PO DAILY 04/11/23 08/07/23 iron) tablet ipratropium 0.5 mg-albuterol 3 mg 3 ml inhalation QID PRN wheezing 04/11/23 08/07/23 (2.5 mg base)/3 mL nebulization soln magnesium oxide 400 mg PO DAILY 04/11/23 08/07/23 multivitamin (Daily Multi-Vitamin 1 tab PO DAILY 11/04/23 03/01/24 tablet) pantoprazole 40 mg tablet,delayed 40 mg PO BID 04/11/23 08/07/23 release trazodone 150 mg tablet 150 mg PO HS 04/11/23 08/07/23 Previous Rx's Medication Instructions Recorded polyethylene glycol 3350 17 gram 17 g PO DAILY 30 days #30 ea 04/13/23 oral powder packet (Miralax) sennosides 8.6 mg-docusate sodium 2 tab PO DAILY 30 days #60 tabs 04/13/23 50 mg tablet (Stool Softener-Laxative) azithromycin 250 mg tablet See Rx Instructions PO .COMPLEX #6 08/07/23 tabs codeine 10 mg-guaifenesin 100 mg/5 10 ml PO Q4-6H PRN cough #118 mL 08/07/23 mL oral liquid methocarbamol 500 mg tablet 500 - 750 mg (1 - 1.5 x 500 mg) PO 08/07/23 QHS 14 days #20 tabs prednisone 10 mg tablet 10 mg PO DIRECTED #30 tabs 08/07/23 Allergies Allergy/AdvReac Type Severity Reaction Status Date / Time amoxicillin Allergy Intermediate Hives Verified 08/07/23 14:18 metoclopramide [From Reglan] Allergy Mild anxiety, Verified 08/07/23 14:18 skin is crawling Penicillins Allergy Mild Hives Verified 08/07/23 14:18 prochlorperazine Allergy Mild anxiety, Verified 08/07/23 14:18 [From Compazine] skin crawling NSAIDS (Non-Steroidal Allergy Verified 08/07/23 14:18 Anti-Inflamma Review of Systems Status of ROS: Reports: 10 or more systems reviewed and unremarkable except as noted in History and below [facility] Medical History Abdominal pain ?R10.9 - Unspecified abdominal pain (ICD-10) Herpes zoster ?B02.9 - Zoster without complications (ICD-10) Spell of altered consciousness ?R40.4 - Transient alteration of awareness (ICD-10) Malnutrition ?E46 - Unspecified protein-calorie malnutrition (ICD-10) History of gastrostomy tube placement Controlled substance agreement signed ?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 (ICD-10) Hematoma of rectus sheath ?S30.1XXA - Contusion of abdominal wall, initial encounter (ICD-10) PTSD (post-traumatic stress disorder) ?F43.10 - Post-traumatic stress disorder, unspecified (ICD-10) ADHD ?F90.9 - Attention-deficit hyperactivity disorder, unspecified type (ICD-10) Major depressive disorder ?F32.9 - Major depressive disorder, single episode, unspecified (ICD-10) Deep vein thrombophlebitis of arm ?I80.8 - Phlebitis and thrombophlebitis of other sites (ICD-10) Transaminitis ?R74.01 - Elevation of levels of liver transaminase levels (ICD-10) Asthma ?J45.909 - Unspecified asthma, uncomplicated (ICD-10) Lung nodule ?R91.1 - Solitary pulmonary nodule (ICD-10) Fatty liver ?K76.0 - Fatty (change of) liver, not elsewhere classified (ICD-10) Hyperlipidemia ?E78.5 - Hyperlipidemia, unspecified (ICD-10) 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 (ICD-10) Migraine ?G43.909 - Migraine, unspecified, not intractable, without status migrainosus (ICD-10) Severe preeclampsia ?O14.10 - Severe pre-eclampsia, unspecified trimester (ICD-10) Pneumonia ?J18.9 - Pneumonia, unspecified organism (ICD-10) Cholecystectomy planned Kidney stones ?N20.0 - Calculus of kidney (ICD-10) Urinary frequency ?R35.0 - Frequency of micturition (ICD-10) Nerve pain ?M79.2 - Neuralgia and neuritis, unspecified (ICD-10) Cold sore ?B00.1 - Herpesviral vesicular dermatitis (ICD-10) Surgical History Hx of cholecystectomy ?Z90.49 - Acquired absence of other specified parts of digestive tract (ICD- 10) Gastric bypass status for obesity ?Z98.84 - Bariatric surgery status (ICD-10) Family History Maternal Grandmother Breast cancer High blood pressure Mother Breast cancer Skin cancer Paternal Grandmother Lung cancer Aunt Breast cancer Daughter Congenital heart disease Maternal Grandfather Myocardial infarction High cholesterol High blood pressure Stroke Father High cholesterol High blood pressure Paternal Grandfather High cholesterol High blood pressure Social History Narrative: . Two young daughters. Denies tobacco use or illicit drug use. 1 glass of wine per week, most recent drink was the night before admission. What is your current living situation?: I presently have a place to live Problems where you live: no known problems Problems where you live details: none In the past 12 months, utilities in danger of being shut off: no In past 12 months, lack of transportation kept you from medical appts, meetings, work, or getting things needed for daily living: no In the past 12 mos, have been you worried that your food would run out before you had money to buy more?: never true In the past 12 mos, the food you bought just didn't last and you didn't have money to buy more?: never true Highest level of school completed/degree received: Master's degree Smoking Status: Former smoker What tobacco products do you use: cigarettes Smoking quit date/years: <= 15 years ago Do you use any of these nicotine containing products: None Second hand tobacco smoke exposure: No How often do you have a drink containing alcohol: monthly or less How many standard drinks containing alcohol do you have on a typical day: 1 or 2 How often do you have six or more drinks on one occasion: Never AUDIT-C Alcohol total score: 1 Non-prescribed substance use: denies use Caffeine: Yes (daily) How often does anyone, including family, friends and others, physically hurt you : never How often does anyone, including family, friends and others, insult or talk down to you: never How often does anyone, including family, friends and others, threaten you with harm: never How often does anyone, including family, friends and others, scream or curse at you: never service: No Exam Narrative: Exam Narrative: EXAM GENERAL: Patient appears comfortable and well. EYES: No scleral icterus. ENT: Tympanic membranes and oropharynx normal. THYROID: no thyroid nodules or thyromegaly. LYMPH: No supraclavicular or cervical lymphadenopathy. SKIN: Visible skin seen during exam normal or with benign process only. EXT: No dependent lower extremity pedal edema. HEART: Regular rate and rhythm with no murmurs, rubs, or gallops. LUNGS: Wheezes bilaterally noted. ABD: Soft, non tender, non distended. PSYCH: Good eye contact, speech is not pressured. Const: Vital Signs, click to edit/add: Vital Signs - 24 hr 08/07/23 20:44 Temperature 97.8 F Pulse Rate [Pulse Oximeter] 112 H Respiratory Rate 20 Blood Pressure [Ri ght Upper Arm] 154/112 H Pulse Oximetry 99 Oxygen Delivery Me thod Room Air Course Course ED Course: Chest x-ray pending. Vital Signs Vital signs: Initial Vital Signs Temperature 97.8 F 08/07/23 20:44 Temperature Source Temporal Artery Scan 08/07/23 20:44 Pulse Rate 112 H 08/07/23 20:44 Respiratory Rate 20 08/07/23 20:44 Blood Pressure 154/112 H 08/07/23 20:44 Blood Pressure Mean 126 H 08/07/23 20:44 Blood Pressure Position Sitting 08/07/23 20:44 Pulse Oximetry 99 08/07/23 20:44 Oxygen Delivery Method Room Air 08/07/23 20:44 Vital Signs Temperature 97.8 F 08/07/23 20:44 Pulse Rate 112 H 08/07/23 20:44 Respiratory Rate 20 08/07/23 20:44 Blood Pressure 154/112 H 08/07/23 20:44 Pulse Oximetry 99 08/07/23 20:44 Oxygen Delivery Method Room Air 08/07/23 20:44 Temperature 97.8 F 08/07/23 20:44 Pulse Rate 112 H 08/07/23 20:44 Respiratory Rate 20 08/07/23 20:44 Blood Pressure 154/112 H 08/07/23 20:44 Pulse Oximetry 99 08/07/23 20:44 Oxygen Delivery Method Room Air 08/07/23 20:44 Medical Decision Making MDM Narrative Medical decision making narrative: Patient is a 33-year-old woman who presents with post COVID cough. She was seen in urgent care today and started on oral prednisone. She states the cough is severe. She has had no fevers no chills no night sweats. I did do a chest x- ray which was negative with the exception of a large amount of swallowed air. This time I do not believe she needs any further intervention other than a shot of Solu-Medrol 40 mg. Will continue her prednisone she will follow-up with her primary physician as needed. Differential Diagnosis Differential Diagnosis: COVID-19 post COVID cough bronchitis pneumothorax congestive heart failure Discharge Plan Discharge Clinical Impression: Post-viral cough syndrome Patient Disposition: Home, Self-Care Condition: Stable Instructions: Acute Cough (ED) Additional Instructions: Continue current management Follow-up with your doctor as needed. Activity Level: No Restrictions Discharge Diet: Regular Prescriptions: No Action azithromycin 250 mg tablet See Rx Instructions PO .COMPLEX Qty: 6 0RF Rx Instructions: For 250 mg dose pack: take 500 mg today (day 1), then 250 mg for 4 days (days 2-5) PO methocarbamol 500 mg tablet 500 - 750 mg PO QHS 14 Days Qty: 20 0RF prednisone 10 mg tablet 10 mg PO DIRECTED Qty: 30 0RF Rx Instructions: Take 4 tablets by mouth daily for the first 3 days. Take 3 tablets by mouth daily for days 4-6. Take 2 tablets by mouth daily for days 7-9. Take 1 tablet by mouth daily for days 10-12, then stop. codeine-guaifenesin 10-100 mg/5 mL liquid 10 ml PO Q4-6H PRN (Reason: cough) Qty: 118 0RF albuterol sulfate [Ventolin HFA] 90 mcg/actuation HFA aerosol inhaler 2 puff INHALATION Q6H PRN (Reason: wheezing) cyanocobalamin (vitamin B-12) 1,000 mcg tablet 1,000 mcg PO DAILY duloxetine 30 mg capsule,delayed release(DR/EC) 120 mg PO HS bupropion HCl 150 mg tablet extended release 24 hr 150 mg PO HS trazodone 150 mg tablet 150 mg PO HS pantoprazole 40 mg tablet,delayed release (DR/EC) 40 mg PO BID docusate sodium [Colace] 100 mg capsule 100 mg PO BID famotidine [Acid Controller] 20 mg tablet 20 mg PO BID PRN ipratropium-albuterol 0.5 mg-3 mg(2.5 mg base)/3 mL solution for nebulization 3 ml INHALATION QID PRN (Reason: wheezing) calcium carbonate-vitamin D3 [Oyster Shell Calcium-Vit D3] 500 mg-5 mcg (200 unit) tablet 1 tab PO DAILY multivitamin [Daily Multi-Vitamin] Tablet 1 tab PO DAILY magnesium oxide 400 mg magnesium tablet 400 mg PO DAILY ferrous sulfate 325 mg (65 mg iron) tablet 325 mg PO DAILY NewFlora 10 billion cell capsule 10,000 mmu cells PO DAILY polyethylene glycol 3350 [Miralax] 17 gram Powder In Packet 17 g PO DAILY 30 Days Qty: 30 0RF sennosides-docusate sodium [Stool Softener-Laxative] 8.6-50 mg Tablet 2 tab PO DAILY 30 Days Qty: 60 0RF Follow Up/Referrals: Jakub Cai MD [Primary Care Provider] - Stand Alone Forms: [employer] Info Instructions
[2023-08-07] MEDS: METHYLPREDNISOLONE SOD SUCC 40 MG/ML IM (21:25)
== END 2023-08-07 21:43 | disposition home or self-care (01) ==
PROVIDERS: Emergency Provider Internal Medicine; PCP Family Medicine
DX: R05.3 Chronic cough (principal); U09.9 Post COVID-19 condition, unspecified
CPT/HCPCS: 71046; 96372; 99283; J2920

== ENCOUNTER 2023-09-02 00:17 | Outpatient (CLI) | payer OTHER, SELFPAY | END 2023-09-02 00:18 | disposition home or self-care (01) | LOC: AMB 09-10 22:37 | PROVIDERS: PCP Family Medicine; Visit Provider Student in an Organized Health Care Education/Training Program | DX: T42.4X2A Poisoning by benzodiazepines, intentional self-harm, initial encounter (principal); T46.5X2A Poisoning by other antihypertensive drugs, intentional self-harm, initial encounter; Y92.830 Public park as the place of occurrence of the external cause | CPT/HCPCS: A0425; A0433 ==

== ENCOUNTER 2024-05-19 22:02 | Emergency (ER) | payer OTHER, SELFPAY ==
[2024-05-19 22:11] VITALS: BP 186/135; PULSE 102; RESP 20; TEMP 36.6; O2SAT 98
--- NOTE | 2024-05-19 22:33 | CRLHL7_ITS ---
For Patients: As a result of the Century Cures Act, medical imaging exams and procedure reports are released immediately into your electronic medical record. You may view this report before your referring provider. If you have questions, please contact your health care provider. INDICATION: Flank pain. TECHNIQUE: Multiplanar CT examination of the abdomen and pelvis was performed without the use of intravenous contrast. COMPARISON: CT abdomen and pelvis 04/12/2023. FINDINGS: Lower chest: No focal consolidation. Normal heart size. No pleural effusions or pneumothorax. Subsegmental atelectasis. Small hiatal hernia. Liver: Unremarkable. Gallbladder: Cholecystectomy. Biliary: Unremarkable. Pancreas: Within normal limits. Spleen: Unremarkable. Adrenal glands: Unremarkable. Renal/ureters/bladder: Normal in size. No obstructive uropathy. No hydronephrosis or obstructive urinary calculi. The ureters appear unremarkable. The bladder is within normal limits. Limited evaluation for renal masses without the use of intravenous contrast. Pelvis: Hysterectomy. No adnexal masses. Gastrointestinal: Postsurgical change from a prior gastric Reuben-en-Y bypass surgery. No bowel wall thickening or bowel obstruction. Nonvisualized appendix. No significant colonic diverticulosis. Mild colonic stool burden. Vasculature: No aortic aneurysm. No significant atherosclerotic calcifications. Tiny pelvic phleboliths. Lymph nodes: No pathologic lymphadenopathy by size criteria. Peritoneum: No free fluid or pneumoperitoneum. No drainable fluid collections. Abdominal wall/soft tissues: Unremarkable. Bones: No acute osseous abnormalities. Mild levoscoliosis of the lumbar spine. IMPRESSION: 1. No hydronephrosis or obstructive urolithiasis. 2. No acute abdominopelvic pathology. The etiology of the patient`s flank pain is not elucidated on this examination. Please note that all CT scans at this facility use dose modulation, iterative reconstruction, and/or weight-based dosing when appropriate to reduce radiation dose to as low as reasonably achievable. Dictated by Clyde Mcclain MD @ 05/19/2024 11:47:52 PM (Electronically Signed)
[2024-05-19 22:48] LABS: Lactate* 0.8 mmol/L (0.5-1.9)
[2024-05-19 23:04] LABS: Basophils Absolute Auto 0.05 K/uL (0.00-0.30); Eosinophils Absolute Auto 0.21 K/uL (0.00-0.50); Eosinophils Percent Auto 4.2 % (0.0-7.0); Hematocrit 42.9 % (33.0-51.0); Immature Granulocytes Abs Auto 0.03 K/uL (0.00-0.30); Immature Granulocytes Pct Auto 0.6 %; Lymphocytes Percent Auto 44.4 % (20-44); Mean Corpuscular HGB Conc 33 gm/dL (32-36); Mean Corpuscular Hemoglobin 29 pg (26-34); Mean Corpuscular Volume 88 fL (80-100); Monocytes Percent Auto 7.3 % (0.0-11.0); Neutrophils Absolute Auto 2.15 K/uL (1.7-7.0); Neutrophils Percent Auto 42.5 % (42.0-72.0); Platelet Count* 391 K/uL (140-440); RDW Coefficient of Variation % 12.5 % (11.5-15.5); Red Blood Count 4.89 m/uL (4.00-5.20); White Blood Count* 5.05 K/uL (4.50-11.00)
[2024-05-19 23:09] LABS: Albumin* 4.9 g/dL (3.3-5.0); Chloride* 103 mmol/L (96-114); Potassium* 3.9 mmol/L (3.6-5.1); Sodium* 139 mmol/L (135-149)
[2024-05-19 23:11] LABS: Creatinine* 0.6 mg/dL (0.5-1.5); Estimated Glomerular Filt Rate 121 ml/min; Slide Review Reflex No
[2024-05-19 23:12] LABS: Alanine Aminotransferase* 20 U/L (4-35); Alkaline Phosphatase* 91 U/L (40-150); Anion Gap 11 mEq/L (7-15); Aspartate Amino Transferase* 25 U/L (12-35); Bilirubin Total* 0.5 mg/dL (0.1-1.5); Blood Urea Nitrogen* 12 mg/dL (5-24); Carbon Dioxide* 25 mmol/L (20-32); Glucose* 91 mg/dL (60-115); Lipase* 97 U/L (23-300); Total Protein* 7.9 g/dL (6.0-8.3)
[2024-05-19 23:13] LABS: Calcium* 9.7 mg/dL (8.4-10.6)
[2024-05-19 23:15] LABS: C Reactive Protein* < 0.5 mg/dL (0.5-1.0)
[2024-05-19 23:16] LABS: HCG Qualitative Serum* Negative (Negative)
--- NOTE | 2024-05-19 23:41 | ED_ITS ---
HPI - General Adult General Chief complaint: Flank Pain <Jennifer Silva MD - Last Filed: 05/19/24 23:49> Stated complaint: flank/chest pain <Jennifer Silva MD - Last Filed: 05/19/24 23:49> Time Seen by Provider: 05/19/24 22:33 <Jennifer Silva MD - Last Filed: 05/19/24 23:49> Source: patient <Jennifer Silva MD - Last Filed: 05/19/24 23:49> Mode of arrival: ambulatory <Jennifer Silva MD - Last Filed: 05/19/24 23:49> Limitations: no limitations <Jennifer Silva MD - Last Filed: 05/19/24 23:49> History of Present Illness HPI narrative: 33-year-old female coming in today complaining of left-sided flank pain that started earlier today. Patient states that for the last 4 days she has been feeling increased urinary frequency and has noticed a very strong order of her urine. Today she developed this flank pain and started vomiting. States that she has not been able to keep anything down today. In the midst of all of this she has also developed chest pain. It comes and goes encompasses the entire anterior chest. She denies any fevers. Feels chills every now and then. No diarrhea or constipation. The pain radiates into the left lower chest wall. Patient states she has only urinated 1 time all day <Jennifer Silva MD - Last Filed: 05/19/24 23:49> Related Data Home medications: Home Medications ?Medication ?Instructions ?Recorded ?Confirmed albuterol sulfate 90 mcg/actuation 2 puff inhalation Q6H PRN wheezing 12/13/22 08/07/23 aerosol inhaler (Ventolin HFA) cyanocobalamin (vitamin B-12) 1,000 mcg PO DAILY 12/13/22 08/07/23 1,000 mcg tablet duloxetine 30 mg capsule,delayed 120 mg PO HS 12/13/22 08/07/23 release bupropion HCl 150 mg 24 hr tablet, 150 mg PO HS 03/09/23 08/07/23 extended release Lactobacillus acidophilus 10 10,000 mmu cells PO DAILY 04/11/23 08/07/23 billion cell capsule (NewFlora) calcium 500 mg (as 1 tab PO DAILY 04/11/23 08/07/23 carbonate)-vitamin D3 5 mcg (200 unit) tablet (Oyster Shell Calcium-Vitamin D3) docusate sodium 100 mg capsule 100 mg PO BID 04/11/23 08/07/23 (Colace) famotidine 20 mg tablet (Acid 20 mg PO BID PRN 04/11/23 08/07/23 Controller) ferrous sulfate 325 mg (65 mg 325 mg PO DAILY 04/11/23 08/07/23 iron) tablet ipratropium 0.5 mg-albuterol 3 mg 3 ml inhalation QID PRN wheezing 04/11/23 08/07/23 (2.5 mg base)/3 mL nebulization soln magnesium oxide 400 mg PO DAILY 04/11/23 08/07/23 multivitamin (Daily Multi-Vitamin 1 tab PO DAILY 04/11/23 08/07/23 tablet) pantoprazole 40 mg tablet,delayed 40 mg PO BID 04/11/23 08/07/23 release trazodone 150 mg tablet 150 mg PO HS 04/11/23 08/07/23 Previous Rx's ?Medication ?Instructions ?Recorded polyethylene glycol 3350 17 gram 17 g PO DAILY 30 days #30 ea 04/13/23 oral powder packet (Miralax) sennosides 8.6 mg-docusate sodium 2 tab PO DAILY 30 days #60 tabs 04/13/23 50 mg tablet (Stool Softener-Laxative) azithromycin 250 mg tablet See Rx Instructions PO .COMPLEX #6 08/07/23 tabs codeine 10 mg-guaifenesin 100 mg/5 10 ml PO Q4-6H PRN cough #118 mL 08/07/23 mL oral liquid prednisone 10 mg tablet 10 mg PO DIRECTED #30 tabs 08/07/23 <Jennifer Silva MD - Last Filed: 05/19/24 23:49> Allergies/adverse reactions: Allergies Allergy/AdvReac Type Severity Reaction Status Date / Time amoxicillin Allergy Intermediate Hives Verified 08/07/23 14:18 metoclopramide (From Reglan) Allergy Mild anxiety, Verified 08/07/23 14:18 skin is crawling Penicillins Allergy Mild Hives Verified 08/07/23 14:18 prochlorperazine (From Allergy Mild anxiety, Verified 03/01/24 14:18 Compazine) skin crawling NSAIDS (Non-Steroidal Allergy Verified 08/07/23 14:18 Anti-Inflamma <Jennifer Silva MD - Last Filed: 05/19/24 23:49> Review of Systems Status of ROS: Reports: 10 or more systems reviewed and unremarkable except as noted in History and below <Jennifer Silva MD - Last Filed: 05/19/24 23:49> [facility] Medical History: Medical History Abdominal pain ?R10.9 - Unspecified abdominal pain (ICD-10) Herpes zoster ?B02.9 - Zoster without complications (ICD-10) Spell of altered consciousness ?R40.4 - Transient alteration of awareness (ICD-10) Malnutrition ?E46 - Unspecified protein-calorie malnutrition (ICD-10) History of gastrostomy tube placement Controlled substance agreement signed ?Z79.899 - Other snf (current) drug therapy (ICD-10) Hematoma of rectus sheath ?S30.1XXA - Contusion of abdominal wall, initial encounter (ICD-10) PTSD (post-traumatic stress disorder) ?F43.10 - Post-traumatic stress disorder, unspecified (ICD-10) ADHD ?F90.9 - Attention-deficit hyperactivity disorder, unspecified type (ICD-10) Major depressive disorder ?F32.9 - Major depressive disorder, single episode, unspecified (ICD-10) Deep vein thrombophlebitis of arm ?I80.8 - Phlebitis and thrombophlebitis of other sites (ICD-10) Transaminitis ?R74.01 - Elevation of levels of liver transaminase levels (ICD-10) Asthma ?J45.909 - Unspecified asthma, uncomplicated (ICD-10) Lung nodule ?R91.1 - Solitary pulmonary nodule (ICD-10) Fatty liver ?K76.0 - Fatty (change of) liver, not elsewhere classified (ICD-10) Hyperlipidemia ?E78.5 - Hyperlipidemia, unspecified (ICD-10) 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 (ICD-10) Migraine ?G43.909 - Migraine, unspecified, not intractable, without status migrainosus (ICD-10) Severe preeclampsia ?O14.10 - Severe pre-eclampsia, unspecified trimester (ICD-10) Pneumonia ?J18.9 - Pneumonia, unspecified organism (ICD-10) Cholecystectomy planned Kidney stones ?N20.0 - Calculus of kidney (ICD-10) Urinary frequency ?R35.0 - Frequency of micturition (ICD-10) Nerve pain ?M79.2 - Neuralgia and neuritis, unspecified (ICD-10) Cold sore ?B00.1 - Herpesviral vesicular dermatitis (ICD-10) <Jennifer Silva MD - Last Filed: 05/19/24 23:49> Surgical History: Surgical History Hx of cholecystectomy ?Z90.49 - Acquired absence of other specified parts of digestive tract (ICD- 10) Gastric bypass status for obesity ?Z98.84 - Bariatric surgery status (ICD-10) <Jennifer Silva MD - Last Filed: 05/19/24 23:49> Family History: Family History Maternal Grandmother Breast cancer High blood pressure Mother Breast cancer Skin cancer Paternal Grandmother Lung cancer Aunt Breast cancer Daughter Congenital heart disease Maternal Grandfather Myocardial infarction High cholesterol High blood pressure Stroke Father High cholesterol High blood pressure Paternal Grandfather High cholesterol High blood pressure <Jennifer Silva MD - Last Filed: 05/19/24 23:49> Social History: Social History Narrative: . Two young daughters. Denies tobacco use or illicit drug use. 1 glass of wine per week, most recent drink was the night before admission. What is your current living situation?: I presently have a place to live Problems where you live: no known problems Problems where you live details: none In the past 12 months, utilities in danger of being shut off: no In the past 12 mos, have been you worried that your food would run out before you had money to buy more?: never true In the past 12 mos, the food you bought just didn't last and you didn't have money to buy more?: never true Highest level of school completed/degree received: Master's degree Smoking Status: Former smoker What tobacco products do you use: cigarettes Smoking quit date/years: <= 15 years ago Do you use any of these nicotine containing products: None Second hand tobacco smoke exposure: No How often do you have a drink containing alcohol: monthly or less How many standard drinks containing alcohol do you have on a typical day: 1 or 2 How often do you have six or more drinks on one occasion: Never AUDIT-C Alcohol total score: 1 Non-prescribed substance use: denies use Caffeine: Yes (daily) How often does anyone, including family, friends and others, physically hurt you : never How often does anyone, including family, friends and others, insult or talk down to you: never How often does anyone, including family, friends and others, threaten you with harm: never How often does anyone, including family, friends and others, scream or curse at you: never service: No <Jennifer Silva MD - Last Filed: 05/19/24 23:49> Exam Narrative: Exam Narrative: Well-nourished well-developed patient almost tearful, moaning in intermittent pain. Alert and oriented. Answers questions appropriately. Patient speaks in full sentences without needing to catch their breath. HEENT: Normocephalic atraumatic. Extraocular muscles are intact. Co njunctivae are moist without any icterus noted. Moist mucous membranes. Posterior pharynx is normal. Neck is soft. Cold sores of the upper lip. Cardiovascular: Heart is regular rate and rhythm S1 and S2 are present without any murmurs. Lungs: Clear to auscultation bilaterally no wheezes rhonchi or rales are appreciated. Patient takes deep breaths without any discomfort. Abdomen: Soft and nontender nondistended with normal bowel sounds. No guarding or rebound. No masses or organomegaly appreciated. Patient has left-sided CVA tenderness. Extremities: Bilateral lower extremities are without edema. Normal DP and PT pulses. Skin: Well perfused without any obvious rashes. <Jennifer Silva MD - Last Filed: 05/19/24 23:49> Const: Vital Signs, click to edit/add: Vital Signs - 24 hr 05/19/24 22:11 Temperature 97.9 F Pulse Rate [Pulse Oximeter] 102 H Respiratory Rate 20 Blood Pressure [Ri ght Upper Arm] 186/135 H Pulse Oximetry 98 <Jennifer Silva MD - Last Filed: 05/19/24 23:49> Vital Signs, click to edit/add: Vital Signs - 24 hr 05/19/24 22:11 Temperature 97.9 F Pulse Rate [Pulse Oximeter] 102 H Respiratory Rate 20 Blood Pressure [Ri ght Upper Arm] 186/135 H Pulse Oximetry 98 <Malik Cisneros MD - Last Filed: 05/20/24 00:47> Course Course ED Course: Differential diagnosis includes pyelonephritis, nephrolithiasis, PE, UTI, muscle pain. IV established. Patient is started on 1 L of normal saline. She is also given Zofran and 2 mg of IV morphine. CBC is normal. Normal D-dimer. Normal chemistries. Normal LFTs. Normal CRP. Normal lipase. Negative test. <Jennifer Silva MD - Last Filed: 05/19/24 23:49> Vital Signs Vital signs: Initial Vital Signs Temperature 97.9 F 05/19/24 22:11 Temperature Source Temporal Artery Scan 05/19/24 22:11 Pulse Rate 102 H 05/19/24 22:11 Respiratory Rate 20 05/19/24 22:11 Blood Pressure 186/135 H 05/19/24 22:11 Blood Pressure Mean 152 H 05/19/24 22:11 Pulse Oximetry 98 05/19/24 22:11 Vital Signs Temperature 97.9 F 05/19/24 22:11 Pulse Rate 102 H 05/19/24 22:11 Respiratory Rate 20 05/19/24 22:11 Blood Pressure 186/135 H 05/19/24 22:11 Pulse Oximetry 98 05/19/24 22:11 Temperature 97.9 F 05/19/24 22:11 Pulse Rate 102 H 05/19/24 22:11 Respiratory Rate 20 05/19/24 22:11 Blood Pressure 186/135 H 05/19/24 22:11 Pulse Oximetry 98 05/19/24 22:11 <Jennifer Silva MD - Last Filed: 05/19/24 23:49> Initial Vital Signs Temperature 97.9 F 05/19/24 22:11 Temperature Source Temporal Artery Scan 05/19/24 22:11 Pulse Rate 102 H 05/19/24 22:11 Respiratory Rate 20 05/19/24 22:11 Blood Pressure 186/135 H 05/19/24 22:11 Blood Pressure Mean 152 H 05/19/24 22:11 Pulse Oximetry 98 05/19/24 22:11 Vital Signs Temperature 97.9 F 05/19/24 22:11 Pulse Rate 102 H 05/19/24 22:11 Respiratory Rate 20 05/19/24 22:11 Blood Pressure 186/135 H 05/19/24 22:11 Pulse Oximetry 98 05/19/24 22:11 Temperature 97.9 F 05/19/24 22:11 Pulse Rate 102 H 05/19/24 22:11 Respiratory Rate 20 05/19/24 22:11 Blood Pressure 186/135 H 05/19/24 22:11 Pulse Oximetry 98 05/19/24 22:11 <Malik Cisneros MD - Last Filed: 05/20/24 00:47> Medications Administered Medications: Discontinued Medications Generic Name Dose Route Start Last Admin Trade Name Freq PRN Reason Stop Dose Admin Sodium Chloride 1,000 mls @ 1,000 mls/hr 05/19/24 23:30 05/19/24 23:44 0.9 % Sodium Chloride 1000 Ml IV 05/20/24 00:29 1,000 mls/hr .Q1H ANA Administration Morphine Sulfate 2 mg 05/19/24 23:47 05/19/24 23:55 Morphine 2 Mg/Ml Inj IVP 05/19/24 23:48 2 mg ONCE ONE Administration Ondansetron HCl 4 mg 05/19/24 23:21 05/19/24 23:44 Ondansetron 2 Mg/Ml Inj IVP 05/19/24 23:22 4 mg ONCE ONE Administration <Jennifer Silva MD - Last Filed: 05/19/24 23:49> Discontinued Medications Generic Name Dose Route Start Last Admin Trade Name Freq PRN Reason Stop Dose Admin Sodium Chloride 1,000 mls @ 1,000 mls/hr 05/19/24 23:30 05/19/24 23:44 0.9 % Sodium Chloride 1000 Ml IV 05/20/24 00:29 1,000 mls/hr .Q1H ANA Administration Morphine Sulfate 2 mg 05/19/24 23:47 05/19/24 23:55 Morphine 2 Mg/Ml Inj IVP 05/19/24 23:48 2 mg ONCE ONE Administration Ondansetron HCl 4 mg 05/19/24 23:21 05/19/24 23:44 Ondansetron 2 Mg/Ml Inj IVP 05/19/24 23:22 4 mg ONCE ONE Administration <Malik Cisneros MD - Last Filed: 05/20/24 00:47> Medical Decision Making MDM Narrative Medical decision making narrative: CT of the abdomen pelvis is largely unremarkable. UA shows evidence of UTI. She does have a complicated history as to did treated with a g Rocephin as well as 0.5 mg of IV Dilaudid. Will syndrome with 5 days of Bactrim as a precaution. She can drink plenty fluids get plenty of rest follow-up with her primary physician as needed. <Malik Cisneros MD - Last Filed: 05/20/24 00:47> Lab Data Labs: Lab Results 05/19/24 05/19/24 05/20/24 Range/Units 22:40 23:26 00:10 WBC 5.05 (4.50-11.00) K/uL RBC 4.89 (4.00-5.20) m/uL Hgb 14.0 (12.0-16.0) gm/dL Hct 42.9 (33.0-51.0) % MCV 88 (80-100) fL MCH 29 (26-34) pg MCHC 33 (32-36) gm/dL RDW Coeff of Vega 12.5 (11.5-15.5) % Plt Count 391 (140-440) K/uL Neut % (Auto) 42.5 (42.0-72.0) % Lymph % (Auto) 44.4 H (20-44) % [place] % (Auto) 7.3 (0.0-11.0) % Eos % (Auto) 4.2 (0.0-7.0) % Baso % (Auto) 1.0 (0.0-3.0) % Neut # (Auto) 2.15 (1.7-7.0) K/uL Lymph # (Auto) 2.20 (0.90-2.90) K/uL Placer # (Auto) 0.40 (0.00-0.90) K/UL Eos # (Auto) 0.21 (0.00-0.50) K/uL Baso # (Auto) 0.05 (0.00-0.30) K/uL Abs Immat Gran (auto) 0.03 (0.00-0.30) K/uL Imm/Tot Granulo (auto) 0.6 % D-Dimer Quant (PE/DVT) 0.30 (0.00-0.50) ug/ml Sodium 139 (135-149) mmol/L Potassium 3.9 (3.6-5.1) mmol/L Chloride 103 (96-114) mmol/L Carbon Dioxide 25 (20-32) mmol/L Anion Gap 11 (7-15) mEq/L BUN 12 (5-24) mg/dL Creatinine 0.6 (0.5-1.5) mg/dL Estimated GFR 121 ml/min Glucose 91 (60-115) mg/dL Lactate 0.8 (0.5-1.9) mmol/L Calcium 9.7 (8.4-10.6) mg/dL Total Bilirubin 0.5 (0.1-1.5) mg/dL Direct Bilirubin 0.0 (0.0-0.5) mg/dL AST 25 (12-35) U/L ALT 20 (4-35) U/L Alkaline Phosphatase 91 (40-150) U/L Troponin I < 0.01 L (0.01-0.04) ng/mL C-Reactive Protein < 0.5 L (0.5-1.0) mg/dL Total Protein 7.9 (6.0-8.3) g/dL Albumin 4.9 (3.3-5.0) g/dL Lipase 97 (23-300) U/L HCG, Qual Negative (Negative) Urine Color Yellow (Yellow) Urine Appearance Cloudy A (Clear) Urine pH 6.5 (5.0-8.5) Ur Specific [place] 1.010 (1.000-1.030) Urine Protein Negative (Negative) Urine Glucose (UA) Negative (Negative) Urine Ketones Negative (Negative) Urine Blood Negative (Negative) Urine Nitrite Positive A (Negative) Urine Bilirubin Negative (Negative) Urine Urobilinogen 0.2 (0.2-1.0) Ur Leukocyte Esterase 1+ A (Negative) Urine RBC 0-2 (0-2) Urine WBC 5-10 A (0-5) Ur Squamous Epith Cells Few (None-Few) Amorphous Sediment Few A (None) Urine Bacteria Moderate A (None) Urine Mucus Few A (None) Lab Acknowledgement Test Added <Jennifer Silva MD - Last Filed: 05/19/24 23:49> Lab Results 05/19/24 05/19/24 05/20/24 Range/Units 22:40 23:26 00:10 WBC 5.05 (4.50-11.00) K/uL RBC 4.89 (4.00-5.20) m/uL Hgb 14.0 (12.0-16.0) gm/dL Hct 42.9 (33.0-51.0) % MCV 88 (80-100) fL MCH 29 (26-34) pg MCHC 33 (32-36) gm/dL RDW Coeff of Vega 12.5 (11.5-15.5) % Plt Count 391 (140-440) K/uL Neut % (Auto) 42.5 (42.0-72.0) % Lymph % (Auto) 44.4 H (20-44) % Placer % (Auto) 7.3 (0.0-11.0) % Eos % (Auto) 4.2 (0.0-7.0) % Baso % (Auto) 1.0 (0.0-3.0) % Neut # (Auto) 2.15 (1.7-7.0) K/uL Lymph # (Auto) 2.20 (0.90-2.90) K/uL Placer # (Auto) 0.40 (0.00-0.90) K/UL Eos # (Auto) 0.21 (0.00-0.50) K/uL Baso # (Auto) 0.05 (0.00-0.30) K/uL Abs Immat Gran (auto) 0.03 (0.00-0.30) K/uL Imm/Tot Granulo (auto) 0.6 % D-Dimer Quant (PE/DVT) 0.30 (0.00-0.50) ug/ml Sodium 139 (135-149) mmol/L Potassium 3.9 (3.6-5.1) mmol/L Chloride 103 (96-114) mmol/L Carbon Dioxide 25 (20-32) mmol/L Anion Gap 11 (7-15) mEq/L BUN 12 (5-24) mg/dL Creatinine 0.6 (0.5-1.5) mg/dL Estimated GFR 121 ml/min Glucose 91 (60-115) mg/dL Lactate 0.8 (0.5-1.9) mmol/L Calcium 9.7 (8.4-10.6) mg/dL Total Bilirubin 0.5 (0.1-1.5) mg/dL Direct Bilirubin 0.0 (0.0-0.5) mg/dL AST 25 (12-35) U/L ALT 20 (4-35) U/L Alkaline Phosphatase 91 (40-150) U/L Troponin I < 0.01 L (0.01-0.04) ng/mL C-Reactive Protein < 0.5 L (0.5-1.0) mg/dL Total Protein 7.9 (6.0-8.3) g/dL Albumin 4.9 (3.3-5.0) g/dL Lipase 97 (23-300) U/L HCG, Qual Negative (Negative) Urine Color Yellow (Yellow) Urine Appearance Cloudy A (Clear) Urine pH 6.5 (5.0-8.5) Ur Specific [place] 1.010 (1.000-1.030) Urine Protein Negative (Negative) Urine Glucose (UA) Negative (Negative) Urine Ketones Negative (Negative) Urine Blood Negative (Negative) Urine Nitrite Positive A (Negative) Urine Bilirubin Negative (Negative) Urine Urobilinogen 0.2 (0.2-1.0) Ur Leukocyte Esterase 1+ A (Negative) Urine RBC 0-2 (0-2) Urine WBC 5-10 A (0-5) Ur Squamous Epith Cells Few (None-Few) Amorphous Sediment Few A (None) Urine Bacteria Moderate A (None) Urine Mucus Few A (None) Lab Acknowledgement Test Added <Malik Cisneros MD - Last Filed: 05/20/24 00:47> Discharge Plan Discharge Clinical Impression: UTI (urinary tract infection) <Jennifer Silva MD - Last Filed: 05/19/24 23:49> Patient Disposition: Home, Self-Care <Jennifer Silva MD - Last Filed: 05/19/24 23:49> Condition: Stable <Jennifer Silva MD - Last Filed: 05/19/24 23:49> Instructions: Urinary Tract Infection in Women (ED) <Jennifer Silva MD - Last Filed: 05/19/24 23:49> Activity Level: No Restrictions <Jennifer Silva MD - Last Filed: 05/19/24 23:49> No Restrictions <Malik Cisneros MD - Last Filed: 05/20/24 00:47> Discharge Diet: Regular <Jennifer Silva MD - Last Filed: 05/19/24 23:49> Regular <Malik Cisneros MD - Last Filed: 05/20/24 00:47> Prescriptions: No Action azithromycin 250 mg tablet See Rx Instructions PO .COMPLEX Qty: 6 0RF Rx Instructions: For 250 mg dose pack: take 500 mg today (day 1), then 250 mg for 4 days (days 2-5) PO prednisone 10 mg tablet 10 mg PO DIRECTED Qty: 30 0RF Rx Instructions: Take 4 tablets by mouth daily for the first 3 days. Take 3 tablets by mouth daily for days 4-6. Take 2 tablets by mouth daily for days 7-9. Take 1 tablet by mouth daily for days 10-12, then stop. codeine-guaifenesin 10-100 mg/5 mL liquid 10 ml PO Q4-6H PRN (Reason: cough) Qty: 118 0RF albuterol sulfate [Ventolin HFA] 90 mcg/actuation HFA aerosol inhaler 2 puff INHALATION Q6H PRN (Reason: wheezing) cyanocobalamin (vitamin B-12) 1,000 mcg tablet 1,000 mcg PO DAILY duloxetine 30 mg capsule,delayed release(DR/EC) 120 mg PO HS bupropion HCl 150 mg tablet extended release 24 hr 150 mg PO HS trazodone 150 mg tablet 150 mg PO HS pantoprazole 40 mg tablet,delayed release (DR/EC) 40 mg PO BID docusate sodium [Colace] 100 mg capsule 100 mg PO BID famotidine [Acid Controller] 20 mg tablet 20 mg PO BID PRN ipratropium-albuterol 0.5 mg-3 mg(2.5 mg base)/3 mL solution for nebulization 3 ml INHALATION QID PRN (Reason: wheezing) calcium carbonate-vitamin D3 [Oyster Shell Calcium-Vit D3] 500 mg-5 mcg (200 unit) tablet 1 tab PO DAILY multivitamin [Daily Multi-Vitamin] Tablet 1 tab PO DAILY magnesium oxide 400 mg magnesium tablet 400 mg PO DAILY ferrous sulfate 325 mg (65 mg iron) tablet 325 mg PO DAILY NewFlora 10 billion cell capsule 10,000 mmu cells PO DAILY polyethylene glycol 3350 [Miralax] 17 gram Powder In Packet 17 g PO DAILY 30 Days Qty: 30 0RF sennosides-docusate sodium [Stool Softener-Laxative] 8.6-50 mg Tablet 2 tab PO DAILY 30 Days Qty: 60 0RF <Jennifer Sivla MD - Last Filed: 05/19/24 23:49> Follow Up/Referrals: Jakub Cai MD [Referring] - <Jennifer Silva MD - Last Filed: 05/19/24 23:49> Stand Alone Forms: [facility] Inst[facility] <Jennifer Silva MD - Last Filed: 05/19/24 23:49>
[2024-05-19] MEDS: ONDANSETRON 2 MG/ML inj 4 MG IVP (23:44)
[2024-05-19] MEDS: 0.9 % SODIUM CHLORIDE 1000 ml 1,000 ML IV (23:44)
[2024-05-19 23:54] LABS: Troponin I* < 0.01 ng/mL (0.01-0.04)
[2024-05-19] MEDS: MORPHINE 2 MG/ML inj IVP (23:55)
[2024-05-20 00:24] LABS: Appearance Urine Cloudy (Clear); Bilirubin Urine Negative (Negative); Blood Urine Negative (Negative); Color Urine Yellow (Yellow); Glucose Urine Negative (Negative); Ketones Urine Negative (Negative); Leukocyte Esterase Urine 1+ (Negative); Nitrite Urine Positive (Negative); Protein Urine Negative (Negative); Urobilinogen Urine 0.2 (0.2-1.0); pH Urine 6.5 (5.0-8.5)
[2024-05-20 00:36] LABS: Amorphous Sediment Urine Few; Bacteria Urine Moderate; Mucus Urine Few; RBC Urine 0-2 (0-2); Squamous Epithelial Cell Urine Few (None-Few)
[2024-05-20] MEDS: cefTRIAXone 1 GM in 0.9 % SODIUM CHLORIDE Mini-bag 100 ML IVPB (01:01)
[2024-05-20] MEDS: HYDROmorphone 0.5 mg/0.5 ml inj IVP (01:01)
== END 2024-05-20 01:57 | disposition home or self-care (01) ==
PROVIDERS: Emergency Provider Family Medicine; PCP Physician Assistant
DX: N39.0 Urinary tract infection, site not specified (principal)
CPT/HCPCS: 36415; 74176; 80048; 80076; 81001; 81025; 83605; 83690; 84484; 84703; 85025; 85379; 86140; 87086; 87186; 96365; 96375; 99283; 99284; J0696; J1171; J2270; J2405; J7030